=== PATIENT | female | born 1965 | race Caucasian/White ===

== ENCOUNTER → 2016-10-10 | Outpatient (REF) | payer OTHER, SELFPAY ==
[2016-10-10 18:33] LABS: ALBUMIN 3.3 GM/DL (3.2-5.2); ALBUMIN/GLOBULIN RATIO 1.14 (1.00-1.93); ALKALINE PHOSPHATASE 110 U/L (45-117); ALT/SGPT 29 U/L (12-78); ANION GAP 7 MEQ/L (8-16); AST/SGOT 21 U/L (15-37); BILIRUBIN,TOTAL 0.4 MG/DL (0.2-1.0); BLOOD UREA NITROGEN 14 MG/DL (7-18); CARBON DIOXIDE LEVEL 30 MEQ/L (21-32); CHLORIDE LEVEL 108 MEQ/L (98-107); CHOLESTEROL LEVEL 141 MG/DL (<200); GLOMERULAR FILTRATION RATE > 60.0 (>51); GLUCOSE, FASTING 79 MG/DL (70-105); POTASSIUM SERUM 4.3 MEQ/L (3.5-5.1); SODIUM LEVEL 145 MEQ/L (136-145); TOTAL PROTEIN 6.2 GM/DL (6.4-8.2); TRIGLYCERIDES LEVEL 44 MG/DL (<150)
[2016-10-10 18:59] LABS: BASO % 0.8 % (0.0-1.0); EOS # 0.1 K/mm3 (0.0-0.50); EOS % 2.2 % (0.0-3.0); LARGE UNSTAINED CELL # 0.1 K/mm3 (0.0-0.4); LARGE UNSTAINED CELL % 1.9 % (0.0-4.0); LYMPH # 1.4 K/mm3 (1.5-4.5); LYMPH % 44.5 % (24.0-44.0); MEAN CORPUSCULAR HEMOGLOBIN 27.6 pg (27.0-33.0); MEAN CORPUSCULAR HGB CONC 31.7 g/dl (32.0-36.5); MEAN CORPUSCULAR VOLUME 87.1 fl (80.0-96.0); MONO # 0.2 K/mm3 (0.0-0.8); MONO % 5.7 % (0.0-5.0); NEUTROPHILS # 1.5 K/mm3 (1.8-7.7); PLATELET COUNT, AUTOMATED 140 k/mm3 (150-450); RED CELL DISTRIBUTION WIDTH 13.5 % (11.5-14.5); WHITE BLOOD COUNT 3.2 K/mm3 (4.0-10.0)
== END | disposition home or self-care (01) ==
LOC: M LAB REF 16:14
PROVIDERS: ATTEND Family Medicine
DX: Z00.00 Encounter for general adult medical examination without abnormal findings (principal); E06.9 Thyroiditis, unspecified; N93.8 Other specified abnormal uterine and vaginal bleeding; Z98.84 Bariatric surgery status; D50.9 Iron deficiency anemia, unspecified
CPT/HCPCS: 80053; 80061; 84443; 85025; G0123

== ENCOUNTER → 2017-03-10 | Outpatient (REF) | payer OTHER | LOC: M LAB REF 11:41 | PROVIDERS: ATTEND Physician Assistant | DX: R30.0 Dysuria (principal) ==

== ENCOUNTER → 2017-08-16 | Outpatient (REF) | payer OTHER | LOC: M LAB REF 19:06 | PROVIDERS: ATTEND Physician Assistant | DX: R30.0 Dysuria (principal) ==

== ENCOUNTER → 2017-12-04 | Outpatient (REF) | payer OTHER ==
[2017-12-04 17:27] LABS: ALBUMIN 3.6 GM/DL (3.2-5.2); ALBUMIN/GLOBULIN RATIO 1.16 (1.00-1.93); ALKALINE PHOSPHATASE 99 U/L (45-117); ALT/SGPT 27 U/L (12-78); ANION GAP 7 MEQ/L (8-16); AST/SGOT 26 U/L (7-37); BILIRUBIN,TOTAL 0.5 MG/DL (0.2-1.0); BLOOD UREA NITROGEN 13 MG/DL (7-18); CALCIUM LEVEL 8.2 MG/DL (8.5-10.1); CARBON DIOXIDE LEVEL 28 MEQ/L (21-32); CHLORIDE LEVEL 109 MEQ/L (98-107); CHOLESTEROL LEVEL 174 MG/DL (<200); CHOLESTEROL RISK RATIO 1.775 (<5); CREATININE FOR GFR 0.67 MG/DL (0.55-1.30); GLOMERULAR FILTRATION RATE > 60.0 (>51); GLUCOSE, FASTING 95 MG/DL (70-100); HDL CHOLESTEROL 98 MG/DL (>40); LDL CHOLESTEROL 65.6 MG/DL (<100); NON-HDL-C 76 MG/DL; POTASSIUM SERUM 3.9 MEQ/L (3.5-5.1); SODIUM LEVEL 144 MEQ/L (136-145); TOTAL PROTEIN 6.7 GM/DL (6.4-8.2); TRIGLYCERIDES LEVEL 52 MG/DL (<150)
[2017-12-04 17:37] LABS: TOTAL 25(OH) VITAMIN D 43.6 NG/ML (30.0-100.0)
[2017-12-04 17:48] LABS: BASO % 0.7 % (0.0-1.0); EOS # 0.1 10^3/uL (0.0-0.50); EOS % 1.1 % (0.0-3.0); HEMOGLOBIN 12.4 g/dl (12.0-16.0); IMMATURE GRANULOCYTE % 0.2 % (0-3.0); LYMPH # 1.6 10^3/uL (1.5-4.5); LYMPH % 35.5 % (24.0-44.0); MEAN CORPUSCULAR HEMOGLOBIN 28.4 pg (27.0-33.0); MEAN CORPUSCULAR HGB CONC 31.8 g/dl (32.0-36.5); MEAN CORPUSCULAR VOLUME 89.4 fl (80.0-96.0); MONO # 0.4 10^3/uL (0.0-0.8); MONO % 8.5 % (0.0-5.0); NEUTROPHILS # 2.4 10^3/uL (1.8-7.7); PLATELET COUNT, AUTOMATED 189 10^3/uL (150-450); RED BLOOD COUNT 4.36 10^6/uL (4.00-5.40); RED CELL DISTRIBUTION WIDTH 13.2 % (11.5-14.5); WHITE BLOOD COUNT 4.5 10^3/uL (4.0-10.0)
[2017-12-04 18:17] LABS: HIV 1&2 SCREEN CENTAUR NEGATIVE (NEGATIVE)
== END ==
LOC: M LAB REF 16:29
DX: N93.8 Other specified abnormal uterine and vaginal bleeding (principal); Z98.84 Bariatric surgery status; D50.9 Iron deficiency anemia, unspecified; Z00.00 Encounter for general adult medical examination without abnormal findings

== ENCOUNTER → 2018-02-01 | Outpatient (CLI) | payer OTHER | LOC: M RAD 17:43 | DX: N92.6 Irregular menstruation, unspecified (principal) | CPT/HCPCS: 76856 ==

== ENCOUNTER → 2018-02-06 | Outpatient (REF) | payer OTHER | LOC: M LAB REF 17:22 | DX: N93.9 Abnormal uterine and vaginal bleeding, unspecified (principal) | CPT/HCPCS: 88304 ==

== ENCOUNTER 2018-02-16 14:05 | Day surgery (SDC) | payer OTHER ==
[2018-02-16 14:27] LABS: HEMATOCRIT 36.8 % (36.0-47.0); HEMOGLOBIN 12.1 g/dl (12.0-15.5); MEAN CORPUSCULAR HEMOGLOBIN 28.9 pg (27.0-33.0); MEAN CORPUSCULAR HGB CONC 32.9 g/dl (32.0-36.5); MEAN CORPUSCULAR VOLUME 87.8 fl (80.0-96.0); PLATELET COUNT, AUTOMATED 168 10^3/uL (150-450); RED BLOOD COUNT 4.19 10^6/uL (4.00-5.40); RED CELL DISTRIBUTION WIDTH 12.6 % (11.5-14.5); WHITE BLOOD COUNT 3.9 10^3/uL (4.0-10.0)
[2018-02-16] MEDS: LR 1,000 ML IV (14:43)
[2018-02-16] MEDS ORDERED: MIDAZOLAM INJ 2 MG/2 ML VIAL (J2250) As Ordered (19:09)
[2018-02-16] MEDS ORDERED: METOCLOPRAMIDE INJ 10MG/2ML VIAL (J2765) As Ordered (19:09)
[2018-02-16] MEDS ORDERED: dexameTHASONE 4 MG/ML 1ML VIAL (J1100) As Ordered (19:09)
[2018-02-16] MEDS ORDERED: KETOROLAC 60 MG/2 ML VIAL (J1885) As Ordered (19:09)
[2018-02-16] MEDS ORDERED: ONDANSETRON 4MG/2ML VIAL (J2405) As Ordered (19:09)
[2018-02-16] MEDS ORDERED: fentaNYL 100 MCG/2 ML INJECTION (J3010) As Ordered (19:09)
[2018-02-16] MEDS ORDERED: PROPOFOL 200 MG/20 ML VIAL As Ordered (19:09)
[2018-02-16] MEDS ORDERED: LIDOCAINE 2% INJ 100 MG/5 ML SDV (FOR ANES.) As Ordered (19:09)
[2018-02-16] MEDS ORDERED: SILVER NITRATE APPLICATOR As Ordered (19:50)
[2018-02-16] MEDS ORDERED: MEPERIDINE INJ 25 MG/ML VIAL (J2175) IV (20:15)
[2018-02-16] MEDS ORDERED: fentaNYL 100 MCG/2 ML INJECTION (J3010) IV (20:15)
[2018-02-16] MEDS ORDERED: METOCLOPRAMIDE INJ 10MG/2ML VIAL (J2765) IV (20:15)
[2018-02-16] MEDS ORDERED: ONDANSETRON 4MG/2ML VIAL (J2405) IV (20:15)
[2018-02-16] MEDS ORDERED: LR 1,000 ML IV ×2 (20:15)
[2018-02-16] MEDS: PERCOCET 5MG/325MG TAB PO (20:17)
== END 2018-02-16 21:56 | disposition home or self-care (01) ==
LOC: M SDC 21:56
DX: N93.9 Abnormal uterine and vaginal bleeding, unspecified (principal); Z98.84 Bariatric surgery status
CPT/HCPCS: 58563

== ENCOUNTER 2019-06-22 18:43 | Emergency (ER) | payer OTHER, SELFPAY ==
[~2019-06-22] VITALS: Ht 167.6 cm; Wt 84.1 kg
[~2019-06-22 18:43] MED LIST: ZYRT10CA PO
[2019-06-22] MEDS ORDERED: ONDANSETRON 4MG/2ML VIAL (J2405) IV ONE (19:45)
[2019-06-22] MEDS ORDERED: NS 1,000 ML IV ONE (19:45)
[2019-06-22] MEDS ORDERED: KETOROLAC 30 MG/ML VIAL (J1885) IV ONE (19:45)
[2019-06-22 19:51] LABS: BASO % 0.7 % (0.0-1.0); EOS # 0.1 10^3/uL (0.0-0.5); EOS % 1.6 % (0.0-3.0); HEMATOCRIT 37.2 % (36.0-47.0); HEMOGLOBIN 12.5 g/dl (12.0-15.5); LYMPH # 1.9 10^3/uL (1.5-5.0); LYMPH % 42.5 % (24.0-44.0); MEAN CORPUSCULAR HEMOGLOBIN 29.5 pg (27.0-33.0); MEAN CORPUSCULAR HGB CONC 33.6 g/dl (32.0-36.5); MEAN CORPUSCULAR VOLUME 87.7 fl (80.0-96.0); MONO # 0.5 10^3/uL (0.0-0.8); MONO % 10.5 % (0.0-5.0); NEUTROPHILS % 44.7 % (36.0-66.0); PLATELET COUNT, AUTOMATED 166 10^3/uL (150-450); RED BLOOD COUNT 4.24 10^6/uL (4.00-5.40); WHITE BLOOD COUNT 4.4 10^3/uL (4.0-10.0)
[2019-06-22] MEDS: GASTROGRAFIN SOLUTION 30ML PO SCH ×2 (20:06→20:48)
[2019-06-22 20:20] LABS: ALBUMIN 3.6 GM/DL (3.2-5.2); ALT/SGPT 27 U/L (12-78); BILIRUBIN,DIRECT 0.1 MG/DL (0.0-0.2); BILIRUBIN,TOTAL 0.7 MG/DL (0.2-1.0); BLOOD UREA NITROGEN 13 MG/DL (7-18); CALCIUM LEVEL 8.9 MG/DL (8.5-10.1); CARBON DIOXIDE LEVEL 29 MEQ/L (21-32); CHLORIDE LEVEL 107 MEQ/L (98-107); CREATININE FOR GFR 0.76 MG/DL (0.55-1.30); GLOMERULAR FILTRATION RATE > 60.0 (>51); GLUCOSE, FASTING 88 MG/DL (70-100); LIPASE 106 U/L (73-393); POTASSIUM SERUM 3.5 MEQ/L (3.5-5.1); SODIUM LEVEL 141 MEQ/L (136-145); TOTAL PROTEIN 6.5 GM/DL (6.4-8.2)
[2019-06-22] MEDS ORDERED: ISOVUE-370 76% 100ML VIAL (Q9967) As Ordered ONE (21:18)
--- NOTE | 2019-06-22 22:19 | REPVR ---
PROCEDURE INFORMATION: Exam: CT Abdomen And Pelvis With Contrast Exam date and time: 06/22/2019 9:28 PM Clinical history: 54 years old, female; Abdominal pain; Periumbilical; Additional info: Periumbilic pain TECHNIQUE: Imaging protocol: Computed tomography of the abdomen and pelvis with intravenous contrast. Radiation optimization: All CT scans at this facility use at least one of these dose optimization techniques: automated exposure control; mA and/or kV adjustment per patient size (includes targeted exams where dose is matched to clinical indication); or iterative reconstruction. Contrast material: ISOVUE 370; Contrast volume: 100 ml; Contrast route: IV; COMPARISON: US PELVIC NON-OB COMPLETE 02/01/2018 5:53 PM FINDINGS: Liver: Normal. No mass. Gallbladder and bile ducts: There has been prior cholecystectomy. Pancreas: Normal. No ductal dilation. Spleen: Normal. No splenomegaly. Adrenals: Normal. No mass. Kidneys and ureters: Normal. No hydronephrosis. Stomach and bowel: Changes from prior bariatric surgery are noted. No bowel obstruction or inflammatory process. Appendix: No evidence of appendicitis. Intraperitoneal space: Unremarkable. No free air. No significant fluid collection. Vasculature: Unremarkable. No abdominal aortic aneurysm. Lymph nodes: Unremarkable. No enlarged lymph nodes. Bladder: Unremarkable as visualized. Reproductive: Unremarkable as visualized. Bones/joints: There are degenerative changes in the spine and pelvis. Soft tissues: There is a small fat containing umbilical hernia. No hernias. IMPRESSION: 1. Small fat containing umbilical hernia. 2. Prior bariatric surgery without complication. No obstruction. Electronically signed by: Jeremias Godoy On 06/22/2019 22:18:57 PM
[2019-06-22] MEDS ORDERED: OMEP40CA97 PO ×2 (22:51→23:23)
[2019-06-22] MEDS ORDERED: SUCR1SS PO ×2 (22:51→23:23)
[2019-06-22] MEDS ORDERED: GI COCKTAIL 50ML BTL(HYOSCYAMINE/MAALOX/LIDOCAINE VISCOUS)(1:3:1) PO ONE (23:00)
[2019-06-22] MEDS ORDERED: FAMOTIDINE 20 MG TAB PO ONE (23:00)
[2019-06-22] MEDS ORDERED: PANTOPRAZOLE 40MG TAB (PROTONIX) PO ONE (23:00)
[2019-06-22 23:22] VITALS: BP 160/85
--- NOTE | 2019-06-23 09:01 | REP ---
REASON: Abdominal pain. COMPARISON: 12/27/2002 FINDINGS: Supine and upright views of the abdomen show the intestinal gas pattern to be nonspecific. Gas and stool is seen throughout the colon within the rectosigmoid region. The organ silhouettes insofar as delineated appear unremarkable. No abdominal calcific densities are seen within the abdomen or pelvis. The accompanying single frontal view of the chest shows no free subdiaphragmatic air, cardiomegaly, infiltrates or effusions. Surgical clips are seen in both upper quadrants and in the left mid abdomen. IMPRESSION: Nonspecific intestinal gas pattern. Electronically Signed by Cooper Cohen DO 06/23/2019 09:11 A
== END 2019-06-22 23:24 | disposition home or self-care (01) ==
LOC: M ED 18:43
DX: K42.9 Umbilical hernia without obstruction or gangrene (principal); Z98.84 Bariatric surgery status; Z87.442 Personal history of urinary calculi
CPT/HCPCS: 74021; 74177; 80048; 80076; 81001; 83690; 85025; 87086; 96361; 96374; 96375; 99284; J1885; J2405; Q9963; Q9967

== ENCOUNTER → 2019-10-21 | Outpatient (REF) | payer OTHER ==
[~2019-10-21] MED LIST changes: +OMEP40CA97 PO; +SUCR1SS PO
[2019-10-21 13:18] LABS: APPEARANCE, URINE HAZY (CLEAR); BACTERIA, URINE AUTO 1+ (NEGATIVE); BILIRUBIN, URINE AUTO NEGATIVE (NEGATIVE); BLOOD, URINE BLOOD NEGATIVE (NEGATIVE); COLOR, URINE YELLOW (YELLOW); GLUCOSE, URINE (UA) AUTO NEGATIVE (NEGATIVE); KETONE, URINE AUTO NEGATIVE (NEGATIVE); LEUKOCYTE ESTERASE, URINE AUTO 2+ (NEGATIVE); MUCUS, URINE SMALL (NEGATIVE); NITRITE, URINE AUTO NEGATIVE (NEGATIVE); PROTEIN, URINE AUTO NEGATIVE (NEGATIVE); RBC, URINE AUTO 2 /HPF (0-3); SPECIFIC GRAVITY URINE AUTO 1.017 (1.002-1.035); SQUAMOUS EPITHELIAL CELL UR AU 1 /HPF (0-6); UROBILINOGEN, URINE AUTO 0.2 mg/dL (0.0-2.0); WBC, URINE AUTO 5 /HPF (0-3)
== END ==
LOC: M LAB REF 10:59
PROVIDERS: ATTEND Physician Assistant Medical
DX: N39.0 Urinary tract infection, site not specified (principal)

== ENCOUNTER → 2019-10-23 | Outpatient (REF) | payer OTHER | LOC: M LAB REF 19:29 | PROVIDERS: ATTEND Family Medicine | DX: Z12.4 Encounter for screening for malignant neoplasm of cervix (principal) ==

== ENCOUNTER 2019-11-06 20:33 | Emergency (ER) | payer OTHER ==
[~2019-11-06] VITALS: Ht 170.2 cm; Wt 85.9 kg
[2019-11-06 20:43] VITALS: BP 136/105
[2019-11-06] MEDS ORDERED: NITR100C2 PO (20:48)
[2019-11-06] MEDS ORDERED: PHEN-594 PO (20:48)
[2019-11-06] MEDS ORDERED: diphenhydrAMINE INJ 50MG/ML VIAL (J1200) IV STA (20:56)
[2019-11-06] MEDS ORDERED: dexameTHASONE 20 MG/5 ML VIAL (J1100) IV ONE (21:00)
[2019-11-06] MEDS ORDERED: ONDANSETRON 4MG/2ML VIAL (J2405) IV ONE (21:45)
[2019-11-06] MEDS ORDERED: CETIRIZINE (ZyrTEC) 10 MG TAB PO ONE (23:00)
[2019-11-07] MEDS ORDERED: CIPR-249 PO (01:31)
== END 2019-11-07 01:46 | disposition home or self-care (01) ==
LOC: M ED 20:33
DX: R21 Rash and other nonspecific skin eruption (principal); L29.9 Pruritus, unspecified; T37.8X5A Adverse effect of other specified systemic anti-infectives and antiparasitics, initial encounter; T39.8X5A Adverse effect of other nonopioid analgesics and antipyretics, not elsewhere classified, initial encounter; K21.9 Gastro-esophageal reflux disease without esophagitis; J30.2 Other seasonal allergic rhinitis; Z98.84 Bariatric surgery status; Z88.8 Allergy status to other drugs, medicaments and biological substances; Z88.1 Allergy status to other antibiotic agents; Z79.899 Other long term (current) drug therapy
CPT/HCPCS: 96374; 96375; 99284; J1100; J1200; J2405

== ENCOUNTER → 2020-02-24 | Outpatient (REF) | payer OTHER ==
[~2020-02-24] MED LIST changes: +ASPI-527 PO; +ATEN100T PO; +CIPR-249 PO; +DIGO0.253 PO; +ECOT325T7 PO; +NITR100C2 PO; +PANT40TA29 PO; +PHEN1TAB74 PO; +SUCR1TA PO
== END ==
LOC: M LAB REF 17:56
PROVIDERS: ATTEND Family Medicine
DX: Z12.4 Encounter for screening for malignant neoplasm of cervix (principal)

== ENCOUNTER 2020-08-06 15:10 | Emergency (ER) | payer OTHER ==
[~2020-08-06] VITALS: Ht 167.6 cm; Wt 109.6 kg
[~2020-08-06 15:10] MED LIST changes: -ASPI-527 PO; -ATEN100T PO; -DIGO0.253 PO; -ECOT325T7 PO; -PANT40TA29 PO; +PHEN-594 PO; -PHEN1TAB74 PO; -SUCR1TA PO
--- NOTE | 2020-08-06 15:38 | REP ---
INDICATION: CHEST PAIN COMPARISON: None. TECHNIQUE: Portable AP view of the chest FINDINGS: The mediastinum and cardiac silhouette are stable and within normal limits for portable technique. The lung dominguez are clear without acute consolidation, effusion, or pneumothorax. Skeletal structures are intact. IMPRESSION: No acute cardiopulmonary process appreciated. <Electronically signed by Zeferino Arceo > 08/06/20 0410
[2020-08-06] MEDS ORDERED: DEXTROSE 50% 50 ML SYRINGE As Ordered ONE (15:49)
[2020-08-06 15:50] LABS: BASO # 0.1 10^3/uL (0.0-0.2); BASO % 1.1 % (0.0-1.0); EOS # 0.2 10^3/uL (0.0-0.5); EOS % 2.9 % (0.0-3.0); HEMATOCRIT 44.1 % (36.0-47.0); HEMOGLOBIN 14.3 g/dl (12.0-15.5); LYMPH # 2.1 10^3/uL (1.5-5.0); LYMPH % 34.3 % (24.0-44.0); MEAN CORPUSCULAR HEMOGLOBIN 28.8 pg (27.0-33.0); MEAN CORPUSCULAR HGB CONC 32.4 g/dl (32.0-36.5); MEAN CORPUSCULAR VOLUME 88.7 fl (80.0-96.0); MONO # 0.5 10^3/uL (0.0-0.8); MONO % 7.6 % (0.0-5.0); NEUTROPHILS # 3.3 10^3/uL (1.5-8.5); NEUTROPHILS % 53.9 % (36.0-66.0); PLATELET COUNT, AUTOMATED 215 10^3/uL (150-450); RED BLOOD COUNT 4.97 10^6/uL (4.00-5.40); WHITE BLOOD COUNT 6.2 10^3/uL (4.0-10.0)
[2020-08-06] MEDS: METOPROLOL 5 MG/5 ML VIAL IV SCH ×3 (15:50→16:12)
[2020-08-06] MEDS ORDERED: DEXTROSE 50% 50 ML SYRINGE IV STA (15:52)
--- NOTE | 2020-08-06 16:21 | ECGEPIP ---
[facility] - ED Test Date: 2020-08-06 Pat Name: DENEEN RAMOS Department: Room: - Gender: Female Rcp: HANNAH : 1965 Requested By: Alysha Breen Order Number: [id number] Reading MD: Alysha Breen Measurements Intervals [place] Rate: 154 P: ME: 0 QRS: 66 QRSD: 92 T: -31 QT: 278 QTc: 445 Interpretive Statements ATRIAL FIBRILLATION WITH RAPID VENTRICULAR RESPONSE NONSPECIFIC ST & T-WAVE ABNORMALITY No prior Electronically Signed on 08-06-2020 16:20:51 EST by Alysha Breen
[2020-08-06 16:41] LABS: ALBUMIN 3.7 GM/DL (3.2-5.2); ALT/SGPT 28 U/L (12-78); BILIRUBIN,DIRECT < 0.1 MG/DL (0.0-0.2); BILIRUBIN,TOTAL 0.3 MG/DL (0.2-1.0); MAGNESIUM LEVEL 1.9 MG/DL (1.8-2.4); TOTAL PROTEIN 8.2 GM/DL (6.4-8.2)
[2020-08-06] MEDS ORDERED: DIGOXIN INJ 0.5 MG/2 ML AMP (J1160) IV ONE (16:45)
[2020-08-06] MEDS ORDERED: METOPROLOL TART 50 MG TAB PO ONE ×2 (16:45→19:00)
[2020-08-06] MEDS ORDERED: DIGOXIN INJ 0.5 MG/2 ML AMP (J1160) IV STA ×2 (18:47→21:10)
[2020-08-06] MEDS ORDERED: atenoloL 50 MG TAB PO ONE (21:15)
[2020-08-06 21:53] VITALS: BP 151/121
[2020-08-06 21:57] LABS: APPEARANCE, URINE CLEAR (CLEAR); BACTERIA, URINE AUTO NEGATIVE (NEGATIVE); BILIRUBIN, URINE AUTO NEGATIVE (NEGATIVE); BLOOD, URINE BLOOD NEGATIVE (NEGATIVE); COLOR, URINE YELLOW (YELLOW); GLUCOSE, URINE (UA) AUTO NEGATIVE (NEGATIVE); KETONE, URINE AUTO TRACE mg/dL (NEGATIVE); LEUKOCYTE ESTERASE, URINE AUTO 1+ (NEGATIVE); NITRITE, URINE AUTO NEGATIVE (NEGATIVE); PROTEIN, URINE AUTO NEGATIVE (NEGATIVE); RBC, URINE AUTO 1 /HPF (0-3); SPECIFIC GRAVITY URINE AUTO 1.013 (1.002-1.035); SQUAMOUS EPITHELIAL CELL UR AU 1 /HPF (0-6); UROBILINOGEN, URINE AUTO 0.2 mg/dL (0.0-2.0); WBC, URINE AUTO 0 /HPF (0-3)
[2020-08-06 22:19] LABS: AMPHETAMINES LEVEL URINE NEGATIVE (NEGATIVE); BARBITURATES URINE NEGATIVE (NEGATIVE); BENZODIAZEPINES URINE NEGATIVE (NEGATIVE); CANNABINOIDS URINE POSITIVE (NEGATIVE); COCAINE METABOLITE URINE NEGATIVE (NEGATIVE); METHADONE URINE NEGATIVE (NEGATIVE); OPIATES URINE NEGATIVE (NEGATIVE); PHENCYCLIDINE URINE NEGATIVE (NEGATIVE)
[2020-08-06] MEDS ORDERED: ATEN100T PO (22:43)
[2020-08-06] MEDS ORDERED: ASPI-527 PO (22:43)
[2020-08-06] MEDS ORDERED: DIGO0.253 PO (22:43)
[2020-08-07 00:30] VITALS: BP 156/71
--- NOTE | 2020-08-07 06:38 | ECGEPIP ---
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
== END 2020-08-07 00:39 | disposition home or self-care (01) ==
LOC: M ED 15:10
DX: I48.91 Unspecified atrial fibrillation (principal); R94.31 Abnormal electrocardiogram [ECG] [EKG]; K21.9 Gastro-esophageal reflux disease without esophagitis; Z88.8 Allergy status to other drugs, medicaments and biological substances; Z79.899 Other long term (current) drug therapy; Z98.0 Intestinal bypass and anastomosis status
CPT/HCPCS: 36415; 71045; 80047; 80076; 80307; 81001; 83735; 84443; 85025; 93005; 93041; 94760; 96374; 96375; 96376; 99285; J1160

== ENCOUNTER 2020-08-14 20:46 | Inpatient (IN) | payer OTHER ==
[~2020-08-14] VITALS: Ht 167.6 cm; Wt 106.7 kg
[~2020-08-14 20:46] MED LIST changes: +ASPI-527 PO; +ATEN100T PO; +DIGO0.253 PO; -PHEN-594 PO; +PHEN1TAB74 PO
[2020-08-14] MEDS ORDERED: NS 1,000 ML IV ONE (21:15)
[2020-08-14] MEDS ORDERED: ONDANSETRON 4MG/2ML VIAL IV ONE (21:15)
[2020-08-14] MEDS ORDERED: PANTOPRAZOLE 40MG VIAL (C9113 PER 1) IV ONE (21:15)
[2020-08-14 21:43] LABS: BASO # 0.1 10^3/uL (0.0-0.2); BASO % 0.6 % (0.0-1.0); EOS # 0.1 10^3/uL (0.0-0.5); EOS % 1.1 % (0.0-3.0); HEMATOCRIT 35.6 % (36.0-47.0); HEMOGLOBIN 11.8 g/dl (12.0-15.5); LYMPH # 4.5 10^3/uL (1.5-5.0); LYMPH % 36.8 % (24.0-44.0); MEAN CORPUSCULAR HEMOGLOBIN 28.8 pg (27.0-33.0); MEAN CORPUSCULAR HGB CONC 33.1 g/dl (32.0-36.5); MEAN CORPUSCULAR VOLUME 86.8 fl (80.0-96.0); MONO # 1.1 10^3/uL (0.0-0.8); MONO % 9.2 % (0.0-5.0); NEUTROPHILS # 6.3 10^3/uL (1.5-8.5); NEUTROPHILS % 51.9 % (36.0-66.0); PLATELET COUNT, AUTOMATED 296 10^3/uL (150-450); WHITE BLOOD COUNT 12.2 10^3/uL (4.0-10.0)
[2020-08-14] MEDS ORDERED: PANTOPRAZOLE SODIUM 40 MG in D5W 50 ML IV SCH (21:45)
[2020-08-14 21:59] LABS: INR 1.09; PROTHROMBIN TIME 14.3 SECONDS (12.5-14.3)
[2020-08-14 22:05] LABS: ALT/SGPT 21 U/L (12-78); BLOOD UREA NITROGEN 39 MG/DL (7-18); CALCIUM LEVEL 8.6 MG/DL (8.5-10.1); CARBON DIOXIDE LEVEL 21 MEQ/L (21-32); CHLORIDE LEVEL 111 MEQ/L (98-107); CREATININE FOR GFR 0.77 MG/DL (0.55-1.30); GLOMERULAR FILTRATION RATE > 60.0 (>51); GLUCOSE, FASTING 157 MG/DL (70-100); POTASSIUM SERUM 4.4 MEQ/L (3.5-5.1); SODIUM LEVEL 144 MEQ/L (136-145)
[2020-08-14 22:06] LABS: ALBUMIN 3.1 GM/DL (3.2-5.2); AMYLASE 43 U/L (25-115); BILIRUBIN,DIRECT 0.1 MG/DL (0.0-0.2); BILIRUBIN,TOTAL 0.4 MG/DL (0.2-1.0); CPK CREATINE PHOSPHOKINASE 85 U/L (26-192); LIPASE 152 U/L (73-393); MB/CK RELATIVE INDEX 1.18 (< OR =4); TOTAL PROTEIN 6.1 GM/DL (6.4-8.2); TROPONIN I < 0.02 NG/ML (< 0.10)
[2020-08-14] MEDS ORDERED: propofoL 200 MG/20 ML VIAL As Ordered ONE (23:23)
[2020-08-14] MEDS ORDERED: ROCURONIUM BROMIDE 50 MG/5 ML VIAL As Ordered ONE (23:23)
[2020-08-14] MEDS ORDERED: LIDOCAINE 2% 100MG/5ML SDV (FOR ANES.) As Ordered ONE (23:23)
[2020-08-14] MEDS ORDERED: MIDAZOLAM INJ 2MG/2ML VIAL (J2250 PER 1MG) As Ordered ONE (23:23)
[2020-08-14] MEDS ORDERED: ONDANSETRON 4MG/2ML VIAL As Ordered ONE (23:24)
[2020-08-14] MEDS ORDERED: fentaNYL 100 MCG/2 ML INJECTION (J3010) As Ordered ONE (23:24)
[2020-08-14 23:39] LABS: HEMATOCRIT 23.2 % (36.0-47.0); MEAN CORPUSCULAR HEMOGLOBIN 28.4 pg (27.0-33.0); MEAN CORPUSCULAR HGB CONC 30.6 g/dl (32.0-36.5); MEAN CORPUSCULAR VOLUME 92.8 fl (80.0-96.0); WHITE BLOOD COUNT 6.6 10^3/uL (4.0-10.0)
[2020-08-14 23:48] LABS: HEMOGLOBIN 7.1 g/dl (12.0-15.5)
[2020-08-14 23:49] LABS: PLATELET COUNT, AUTOMATED 125 10^3/uL (150-450)
[2020-08-15] VITALS (8 sets, daily range): BP systolic 105–119; BP diastolic 56–73
[2020-08-15] MEDS ORDERED: ECOT325T7 PO
[2020-08-15] MEDS ORDERED: DIGO0.253 PO
[2020-08-15] MEDS ORDERED: ATEN100T PO
[2020-08-15] MEDS ORDERED: SUCCINYLCHOLINE 100 MG/5 ML SYRINGE (J0330) As Ordered ONE (00:11)
[2020-08-15] MEDS ORDERED: ePHEDrine SULFATE 25 MG/5 ML(5MG/ML) SYRINGE As Ordered ONE (00:54)
[2020-08-15] MEDS ORDERED: PHENYLephrine HCL 500 MCG/5 ML (100MCG/ML) SYRINGE (J2370) As Ordered ONE (00:55)
--- NOTE | 2020-08-15 00:59 | HPEPDOC ---
[facility] Medical History & Physical Date of Admission Aug 15, 2020 Date of Service: Aug 15, 2020 History and Physical Chief complaint: Presented to the ER after experiencing bloody vomiting History of present illness: Patient is a 55-year-old female with past medical history of atrial fibrillation (on ASA 325), Hx of JAQUELIN (s/p CPAP), Gastric bypass, GERD who presented to the emergency room with complaints of vomiting blood. Patient reported that on she experience shortness of breath and came to the emergency room for further evaluation where she was diagnosed with atrial fibrillation. She was started on metoprolol and digoxin and started on an enterically coated ASA 325. Today. Patient noted she was expressing headaches in the afternoon then had associated nausea. The progressed to vomiting at around 7 or 8 PM patient has vomited 3-4 times while at home, feeling of her toilet bowl with blood. Upon arrival to emergency room, patient has vomited an additional 3-4 times, all with copious amounts of blood. During these events. Patient has experienced epigastric pain that has improved. Patient described it as dull, achy and alleviated with vomiting. Patient had dizziness earlier this evening that has now resolved. Patient denies any chest pain but does report shortness of breath with exertion that has improved. Denies any palpitations. Denies constipation or diarrhea. Denies any urinary discomfort. Her last bowel movement was this morning and reported to be normal. Patient reported her last meal was a few bites of mac & cheese at 5 PM. Patient reports a poor appetite and is experienced a 5 pound weight loss over 1- 2 weeks. Patient has reported that she has had an endoscopy any colonoscopy approximately 3 months ago. Patient was noted to have a polyp that was removed and had esophageal dilation. Patient was also advised to reduce her omeprazole from 40mg to 20mg. On a follow-up visit. she was advised to stop PPIs. Past Medical History: Atrial fibrillation (on ASA 325), Hx of JAQUELIN (s/p CPAP), Gastric bypass, GERD Past Surgical History: Gastric bypass 2016 Uterine ablation 2018 Allergies: See below Medications: See below Family History: - Family history reviewed and noncontributory Social History: - Denies the use of illicit drugs; remote history of smoking in her 20s for 6 months. 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 Review of Systems: 10 point review of systems complete, all negative otherwise stated in HPI Physical exam: - Vitals: BP [115/62], HR [65], RR [20], Sat [98%RA], Temp [96.7F] - General: Lying in bed, No acute distress, Speaking in full sentences, AAOx3 - HEENT: NC, AT, PERRLA - CVS: RRR, +S1S2 - Lungs: Fair air entry bilaterally, No appreciable wheezing / rales / rhonchi - Abdomen: Soft, Non-distended, very mild epigastric tenderness - Extremities: No lower extremity edema, No calf tenderness - Neuro: No focal motor or sensory deficit - Skin: No visible rashes Labs: See below Imaging: See below EKG: See below Assessment and Plan: Acute blood loss anemia/symptomatic anemia - likely 2/2 acute GI bleed - likely 2/2 upper GI bleed - Patient presented to the emergency room after experiencing multiple episodes of vomiting bright red blood - Currently she is hemodynamically stable and afebrile - Hemoglobin has trended down within 2 hours to 7.1 form 11.8 - Will transfuse 3 units PRBC - Will keep patient in PCU with telemetry monitoring - Will start Protonix drip and keep patient NPO - Will hold ASA 325 - Patient will be emergently taken for EGD with Dr. Norma bellamy - Dr. Green, Gastroenterology on consultation; appreciate their input Thrombocytopenia - likely 2/2 active GI bleed - Will continue to monitor and transfuse if <100 and active bleeding Atrial fibrillation - Currently patient appears to be in normal sinus rhythm - EKG reviewed and is normal sinus rhythm - Will check Digoxin level - Will c/w Digoxin - Will hold Atenolol for now - Will hold ASA 325 Hx of JAQUELIN - s/p CPAP - Patient has reported that she has not required his CPAP after she has had a gastric bypass and weight loss Gastric bypass GERD - Will start Protonix (see above) DVT prophylaxis - Will start TEDs/Sequentials Vital Signs Vital Signs Date Time Temp Pulse Resp B/P (MAP) Pulse Ox O2 Delivery O2 Flow Rate FiO2 08/14/20 23:46 66 98 08/14/20 23:34 114/86 (95) 118/74 (89) 08/14/20 22:12 Room Air 08/14/20 21:05 96.7 08/14/20 21:00 20 Laboratory Data Labs 24H Laboratory Tests 2 08/14/20 21:26: Immature Granulocyte % (Auto) 0.4, Neutrophils (%) (Auto) 51.9, Lymphocytes (%) (Auto) 36.8, Monocytes (%) (Auto) 9.2H, Eosinophils (%) (Auto) 1.1, Basophils (%) (Auto) 0.6, Neutrophils # (Auto) 6.3, Lymphocytes # (Auto) 4.5, Monocytes # (Auto) 1.1H, Eosinophils # (Auto) 0.1, Basophils # (Auto) 0.1, Nucleated Red Blood Cells % (auto) 0.0, Prothrombin Time 14.3H, Prothromb Time International Ratio 1.09, Activated Partial Thromboplast Time 23.0L, Anion Gap 12, Glomerular Filtration Rate > 60.0, Calcium Level 8.6, Total Bilirubin 0.4, Direct Bilirubin 0.1, Aspartate Amino Transf (AST/SGOT) 19, Alanine Aminotransferase (ALT/SGPT) 21, Alkaline Phosphatase 114, Total Creatine Kinase 85, Creatine Kinase MB 1.0, Creatine Kinase MB Relative Index 1.18, Troponin I < 0.02, Total Protein 6.1L, Albumin 3.1L, Albumin/Globulin Ratio 1.0L, Amylase Level 43, Lipase 152 08/14/20 21:27: Coronavirus (COVID-19)(PCR) NEGATIVE, Influenza Type A (RT-PCR) NEGATIVE, Influenza Type B (RT-PCR) NEGATIVE, Respiratory Syncytial Virus (PCR) NEGATIVE 08/14/20 23:09: Nucleated Red Blood Cells % (auto) 0.0 CBC/BMP Laboratory Tests 08/14/20 21:26 08/14/20 23:09 Home Medications Scheduled Aspirin (Ecotrin) 325 Mg Tablet.dr, 325 MG PO DAILY Atenolol (Atenolol) 100 Mg Tablet, 100 MG PO DAILY Digoxin (Digoxin) 250 Mcg Tablet, 250 MCG PO DAILY Allergies Coded Allergies: nitrofurantoin (Verified Allergy, Severe, sob, hives, itchy, 11/06/19) phenazopyridine (Verified Allergy, Severe, sob, itchy, hives, 11/06/19) dexamethasone (Verified Adverse Reaction, Intermediate, rigors with rapid IV administration, 11/09/19) received on 11/06/19 in ER with IV benadryl diphenhydramine (Verified Adverse Reaction, Intermediate, RIGORS WITH RAPID IV ADMINISTRATION, 11/09/19) received on 11/06/19 in ER with CRUZ Brewster MD Aug 15, 2020 00:58
[2020-08-15] MEDS ORDERED: ACETAMINOPHEN 1000MG 100ML IV BTL (OFIRMEV) (J0131 PER 10MG) As Ordered ONE (01:12)
[2020-08-15] MEDS ORDERED: METOCLOPRAMIDE INJ 10MG/2ML VIAL (J2765 PER 1) As Ordered ONE (01:13)
[2020-08-15 01:31] LABS: DIGOXIN LEVEL 0.4 NG/ML (0.5-2.0)
[2020-08-15] MEDS ORDERED: GLUCAGON INJ 1MG VIAL As Ordered ONE (01:39)
[2020-08-15] MEDS ORDERED: ONDANSETRON 4MG/2ML VIAL IV PRN (02:30)
[2020-08-15] MEDS ORDERED: METOCLOPRAMIDE INJ 10MG/2ML VIAL (J2765 PER 1) IV PRN (02:30)
[2020-08-15] MEDS ORDERED: fentaNYL 100 MCG/2 ML INJECTION (J3010) IV PRN (02:30)
[2020-08-15] MEDS ORDERED: LR 1,000 ML IV SCH (02:30)
[2020-08-15] MEDS ORDERED: PANTOPRAZOLE 40MG VIAL (C9113 PER 1) As Ordered ONE (02:32)
--- NOTE | 2020-08-15 02:34 | ROOR ---
Patient Name: Christa Thayer Procedure Date: 08/15/2020 12:36 AM Date of : 1965 Age: 55 Gender: Female Note Status: Finalized Procedure: Upper GI endoscopy Indications: Hematemesis Providers: Chetan GREEN MD Referring MD: Angela Sanders, Araseli Andrade DO, 2. Inpatient 2. Inpatient, Amy BULLOCK MD Requesting Provider: Medicines: Monitored Anesthesia Care Complications: No immediate complications. Procedure: Pre-Anesthesia Assessment: - The heart rate, respiratory rate, oxygen saturations, blood pressure, adequacy of pulmonary ventilation, and response to care were monitored throughout the procedure. The Endoscope was introduced through the mouth, and advanced to the jejunum. The Endoscope was introduced through the mouth, and advanced to the jejunum. The patient tolerated the procedure well. The upper GI endoscopy was technically difficult and complex due to post-surgical anatomy. Successful completion of the procedure was aided by withdrawing the scope and replacing with the enteroscope. Findings: Evidence of a Jackelyn-en-Y gastrojejunostomy was found. The gastrojejunal anastomosis was characterized by ulceration. One small (8 mm), bleeding cratered ulcer on the jejunal side of the anastomosis. (Only seen in retroflexed position in the jejunum). There was an adherent clot. The clot was removed revealing an actively oozing vessel. For hemostasis, three hemostatic clips were at least partially successful and four hemostatic clips were unsuccessfully placed. With the standard EGD scope, the location of this lesion is very inaccessible in forward and retroflexed view. The scope was changed to an enteroscope, which provided slightly better positioning ability. Clips were applied to the vessel and near the vessel. There was no bleeding at the end of the procedure. Impression: - Jackelyn-en-Y gastrojejunostomy with gastrojejunal anastomosis characterized by ulceration. - 8 mm ulcer on the jejunal side of the anastomosis, with adherent clot, and bleeding visible vessel. Clips were placed, hemostasis obtained. - No specimens collected. Recommendation: - For rebleeding, will need interventional radiology or surgery as the ulcer/bleeding vessel is inaccessible. see findings above - Observe patient's clinical course. Admit patient to ICU or PCU for next 24-36 hrs. - Use IV PPI and po sucralfate. She may have clears only for next 24 hrs. Procedure Code(s): --- Professional --- 64875, Esophagogastroduodenoscopy, flexible, transoral; with control of bleeding, any method Diagnosis Code(s): --- Professional --- K92.0, Hematemesis K25.4, Chronic or unspecified gastric ulcer with hemorrhage CPT copyright 2019 [employer]. All rights reserved. The codes documented in this report are preliminary and upon direct marketing analyst review may be revised to meet current compliance requirements. Chetan Green MD Chetan GREEN MD 08/15/2020 2:33:45 AM Electronically signed by Chetan GREEN MD Number of Addenda: 0 Note Initiated On: 08/15/2020 12:36 AM Estimated Blood Loss: Estimated blood loss: Minimal.
[2020-08-15] MEDS: PANTOPRAZOLE SODIUM 40 MG in D5W 50 ML IV SCH ×5 (02:50→20:08)
[2020-08-15 06:29] LABS: HEMATOCRIT 36.5 % (36.0-47.0); MEAN CORPUSCULAR HGB CONC 32.9 g/dl (32.0-36.5); MEAN CORPUSCULAR VOLUME 91.3 fl (80.0-96.0); PLATELET COUNT, AUTOMATED 147 10^3/uL (150-450); WHITE BLOOD COUNT 5.8 10^3/uL (4.0-10.0)
[2020-08-15] MEDS ORDERED: SUCRALFATE 1 GM TAB PO SCH (09:00)
[2020-08-15] MEDS: DIGOXIN 0.25 MG TAB PO SCH ×2 (09:00→09:12)
--- NOTE | 2020-08-15 09:21 | IPNPDOC ---
Text Note Date of Service The patient was seen on 08/15/20. NOTE Subjective: No further hematemesis after EGD. Had a large bowel movement which was judson and red blood. Physical exam: Vitals: As below. General: Lying in bed, No acute distress, Speaking in full sentences, AAOx3 HEENT: NC, AT, PERRLA CVS: RRR, +S1S2, No Rub/ murmur or gallop Lungs: Fair air entry bilaterally, No appreciable wheezing / rales / rhonchi Abdomen: Soft, Non-distended, very mild epigastric tenderness, bowel sounds normal Extremities: No lower extremity edema, No calf tenderness Neuro: No focal motor or sensory deficit Skin: No visible rashes Labs and radiology: noted. Assessment and Plan: Patient is a 55-year-old female with past medical history of atrial fibrillation (on ASA 325), Hx of JAQUELIN (s/p CPAP), Gastric bypass, GERD who presented to the emergency room on 08/14/20 with complaints of Hematemesis. Patient reported that on she experienced shortness of breath and came to the emergency room for further evaluation where she was diagnosed with atrial fibrillation. She was started on metoprolol and digoxin and started on an enterically coated ASA 325. On the day of admission patient noted having headaches in the afternoon with nausea. This progressed to vomiting at around 7 or 8 PM. Patient had vomited 3-4 times while at home, filling her toilet bowl with blood. Upon arrival to emergency room, patient again vomited an additional 3-4 times, all with copious amounts of blood. During these events patient has experienced epigastric pain that has improved. Patient had dizziness earlier that has now resolved. Patient has reported that she has had an endoscopy any colonoscopy approximately 3 months ago. Patient was noted to have a polyp that was removed and had esophageal dilation. Patient was also advised to reduce her omeprazole from 40mg to 20mg. On a follow-up visit. she was advised to stop PPIs. Patient was admitted for Upper GIB and acute blood loss anemia. Upper GIB/ Hemetamesis Urgent EGD showed bleeding anastomotic ulcer as below Jackelyn-en-Y gastrojejunostomy with gastrojejunal anastomosis characterized by ulceration. 8 mm ulcer on the jejunal side of the anastomosis, with adherent clot, and bleeding visible vessel. Clips were placed, hemostasis obtained. GI Recommendation: - For rebleeding, will need interventional radiology or surgery as the ulcer/bleeding vessel is inaccessible. Admit patient to ICU or PCU for next 24-36 hrs. IV PPI and po sucralfate. She may have clears only for next 24 hrs. Acute blood loss anemia/symptomatic anemia 2/2 upper GI bleed s/p 3 units of PRBC. HH stable after EGD Thrombocytopenia - likely 2/2 active GI bleed Will continue to monitor and transfuse if <100 and active bleeding Paroxysmal Atrial fibrillation Currently patient appears to be in normal sinus rhythm c/w Digoxin Atenolol on hold Will hold ASA 325 Hx of Morbid obesity and JAQUELIN resolved after gastric bypass and weight loss. s/p Gastric bypass GERD IV protonix DVT prophylaxis TEDs/Sequentials VS,Fishbone, I+O VS, Fishbone, I+O Laboratory Tests 08/14/20 21:26 08/14/20 23:09 08/15/20 06:10 Vital Signs Date Time Temp Pulse Resp B/P (MAP) Pulse Ox O2 Delivery O2 Flow Rate FiO2 08/15/20 06:15 97.5 63 12 118/65 (82) 100 Room Air 08/15/20 03:00 2 I&O- Last 24 Hours up to 6 AM 08/15/20 07:00 Intake Total 4330 ml Output Total 0 ml Balance 4330 ml DUNG GOLDMAN MD Aug 15, 2020 07:24
[2020-08-15] MEDS: SUCRALFATE SUSP 1GM/10ML UD PO SCH ×3 (11:45→20:08)
[2020-08-15 12:26] LABS: HEMATOCRIT 33.5 % (36.0-47.0); HEMOGLOBIN 10.8 g/dl (12.0-15.5); MEAN CORPUSCULAR HEMOGLOBIN 28.9 pg (27.0-33.0); MEAN CORPUSCULAR HGB CONC 32.2 g/dl (32.0-36.5); MEAN CORPUSCULAR VOLUME 89.6 fl (80.0-96.0); PLATELET COUNT, AUTOMATED 135 10^3/uL (150-450); RED BLOOD COUNT 3.74 10^6/uL (4.00-5.40); WHITE BLOOD COUNT 4.8 10^3/uL (4.0-10.0)
[2020-08-15] MEDS ORDERED: CHLORASEPTIC SPRAY MT PRN (16:30)
--- NOTE | 2020-08-15 16:40 | ECGEPIP ---
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
[2020-08-15 18:23] LABS: HEMATOCRIT 33.9 % (36.0-47.0); HEMOGLOBIN 10.8 g/dl (12.0-15.5)
[2020-08-16] VITALS: BP 122/58
[2020-08-16 00:32] LABS: HEMATOCRIT 33.3 % (36.0-47.0); HEMOGLOBIN 10.6 g/dl (12.0-15.5)
[2020-08-16] MEDS: PANTOPRAZOLE SODIUM 40 MG in D5W 50 ML IV SCH ×5 (01:21→21:35)
[2020-08-16 04:00] VITALS: BP 124/68
[2020-08-16 06:17] LABS: BASO % 0.9 % (0.0-1.0); EOS # 0.1 10^3/uL (0.0-0.5); EOS % 3.5 % (0.0-3.0); HEMATOCRIT 34.9 % (36.0-47.0); HEMOGLOBIN 11.4 g/dl (12.0-15.5); LYMPH # 1.6 10^3/uL (1.5-5.0); LYMPH % 46.2 % (24.0-44.0); MEAN CORPUSCULAR HEMOGLOBIN 29.5 pg (27.0-33.0); MEAN CORPUSCULAR HGB CONC 32.7 g/dl (32.0-36.5); MEAN CORPUSCULAR VOLUME 90.4 fl (80.0-96.0); MONO # 0.4 10^3/uL (0.0-0.8); MONO % 10.5 % (0.0-5.0); NEUTROPHILS # 1.3 10^3/uL (1.5-8.5); NEUTROPHILS % 38.6 % (36.0-66.0); PLATELET COUNT, AUTOMATED 128 10^3/uL (150-450); RED BLOOD COUNT 3.86 10^6/uL (4.00-5.40); WHITE BLOOD COUNT 3.4 10^3/uL (4.0-10.0)
[2020-08-16 06:31] LABS: BLOOD UREA NITROGEN 15 MG/DL (7-18); CALCIUM LEVEL 7.9 MG/DL (8.5-10.1); CARBON DIOXIDE LEVEL 26 MEQ/L (21-32); CHLORIDE LEVEL 115 MEQ/L (98-107); CREATININE FOR GFR 0.63 MG/DL (0.55-1.30); GLOMERULAR FILTRATION RATE > 60.0 (>51); GLUCOSE, FASTING 79 MG/DL (70-100); MAGNESIUM LEVEL 1.9 MG/DL (1.8-2.4); POTASSIUM SERUM 3.7 MEQ/L (3.5-5.1); SODIUM LEVEL 145 MEQ/L (136-145)
[2020-08-16] MEDS: SUCRALFATE SUSP 1GM/10ML UD PO SCH ×4 (06:45→21:35)
[2020-08-16 08:00] VITALS: BP 118/63
[2020-08-16] MEDS: DIGOXIN 0.25 MG TAB PO SCH (09:09)
[2020-08-16] MEDS ORDERED: SLF 3 ML SYR IV PRN (11:45)
[2020-08-16 12:00] VITALS: BP 115/55
[2020-08-16] MEDS: SLF 3 ML SYR IV SCH ×2 (12:09→21:35)
[2020-08-16 12:43] LABS: HEMATOCRIT 37.4 % (36.0-47.0); HEMOGLOBIN 12.1 g/dl (12.0-15.5)
--- NOTE | 2020-08-16 13:04 | IPNPDOC ---
Text Note Date of Service The patient was seen on 08/16/20. NOTE Subjective: No further hematemesis after EGD. Having melena. No complaints this am. Discussed with Dr Green will advance diet to Full liquids today. Physical exam: Vitals: As below. General: Lying in bed, No acute distress, Speaking in full sentences, AAOx3 HEENT: NC, AT, PERRLA CVS: RRR, +S1S2, No Rub/ murmur or gallop Lungs: Fair air entry bilaterally, No appreciable wheezing / rales / rhonchi Abdomen: Soft, Non-distended, very mild epigastric tenderness, bowel sounds normal Extremities: No lower extremity edema, No calf tenderness Neuro: No focal motor or sensory deficit Skin: No visible rashes Labs and radiology: noted. Assessment and Plan: Patient is a 55-year-old female with past medical history of atrial fibrillation (on ASA 325), Hx of JAQUELIN (s/p CPAP), Gastric bypass, GERD who presented to the emergency room on 08/14/20 with complaints of Hematemesis. Patient reported that on she experienced shortness of breath and came to the emergency room for further evaluation where she was diagnosed with atrial fibrillation. She was started on metoprolol and digoxin and started on an enterically coated ASA 325. On the day of admission patient noted having headaches in the afternoon with nausea. This progressed to vomiting at around 7 or 8 PM. Patient had vomited 3-4 times while at home, filling her toilet bowl with blood. Upon arrival to emergency room, patient again vomited an additional 3-4 times, all with copious amounts of blood. During these events patient has experienced epigastric pain that has improved. Patient had dizziness earlier that has now resolved. Patient has reported that she has had an endoscopy any colonoscopy approximately 3 months ago. Patient was noted to have a polyp that was removed and had esophageal dilation. Patient was also advised to reduce her omeprazole from 40mg to 20mg. On a follow-up visit. she was advised to stop PPIs. Patient was admitted for Upper GIB and acute blood loss anemia. Upper GIB/ Hematemesis Urgent EGD showed bleeding anastomotic ulcer as below Jackelyn-en-Y gastrojejunostomy with gastrojejunal anastomosis characterized by ulceration. 8 mm ulcer on the jejunal side of the anastomosis, with adherent clot, and bleeding visible vessel. Clips were placed, hemostasis obtained. GI Recommendation: - For rebleeding, will need interventional radiology or surgery as the ulcer/bleeding vessel is inaccessible. Admit patient to ICU or PCU for next 24-36 hrs. IV PPI and po sucralfate. Advance diet to full liquids. Acute blood loss anemia/symptomatic anemia 2/2 upper GI bleed s/p 3 units of PRBC. HH stable after EGD Thrombocytopenia - likely 2/2 active GI bleed Will continue to monitor and transfuse if <100 and active bleeding Paroxysmal Atrial fibrillation Currently patient appears to be in normal sinus rhythm c/w Digoxin Atenolol on hold Will hold ASA 325 Hx of Morbid obesity and JAQUELIN resolved after gastric bypass and weight loss. s/p Gastric bypass GERD IV protonix DVT prophylaxis TEDs/Sequentials VS,Fishbone, I+O VS, Fishbone, I+O Laboratory Tests 08/15/20 17:48 08/16/20 00:14 08/16/20 05:23 08/16/20 12:18 Vital Signs Date Time Temp Pulse Resp B/P (MAP) Pulse Ox O2 Delivery O2 Flow Rate FiO2 08/16/20 12:00 97.3 53 14 115/55 (75) 96 Room Air 08/15/20 03:00 2 I&O- Last 24 Hours up to 6 AM 08/16/20 06:00 Intake Total 1220 ml Output Total 1900 ml Balance -680 ml DUNG GOLDMAN MD Aug 16, 2020 13:04
[2020-08-16 16:00] VITALS: BP 130/68
[2020-08-16 18:03] LABS: HEMATOCRIT 35.1 % (36.0-47.0); HEMOGLOBIN 11.4 g/dl (12.0-15.5)
[2020-08-16 20:00] VITALS: BP 127/84
[2020-08-17] VITALS: BP 136/66
[2020-08-17 00:12] LABS: HEMATOCRIT 34.8 % (36.0-47.0); HEMOGLOBIN 11.2 g/dl (12.0-15.5)
[2020-08-17] MEDS: PANTOPRAZOLE SODIUM 40 MG in D5W 50 ML IV SCH ×2 (01:59→08:01)
[2020-08-17 04:00] VITALS: BP 139/82
[2020-08-17 05:03] LABS: BASO % 0.7 % (0.0-1.0); EOS # 0.2 10^3/uL (0.0-0.5); EOS % 3.7 % (0.0-3.0); HEMATOCRIT 35.2 % (36.0-47.0); HEMOGLOBIN 11.2 g/dl (12.0-15.5); LYMPH # 1.7 10^3/uL (1.5-5.0); LYMPH % 41.9 % (24.0-44.0); MEAN CORPUSCULAR HEMOGLOBIN 28.4 pg (27.0-33.0); MEAN CORPUSCULAR HGB CONC 31.8 g/dl (32.0-36.5); MEAN CORPUSCULAR VOLUME 89.1 fl (80.0-96.0); MONO # 0.4 10^3/uL (0.0-0.8); NEUTROPHILS # 1.8 10^3/uL (1.5-8.5); NEUTROPHILS % 43.5 % (36.0-66.0); PLATELET COUNT, AUTOMATED 144 10^3/uL (150-450); RED BLOOD COUNT 3.95 10^6/uL (4.00-5.40); WHITE BLOOD COUNT 4.1 10^3/uL (4.0-10.0)
[2020-08-17 05:31] LABS: BLOOD UREA NITROGEN 10 MG/DL (7-18); CALCIUM LEVEL 8.2 MG/DL (8.5-10.1); CARBON DIOXIDE LEVEL 28 MEQ/L (21-32); CHLORIDE LEVEL 111 MEQ/L (98-107); CREATININE FOR GFR 0.75 MG/DL (0.55-1.30); GLOMERULAR FILTRATION RATE > 60.0 (>51); GLUCOSE, FASTING 89 MG/DL (70-100); MAGNESIUM LEVEL 1.9 MG/DL (1.8-2.4); POTASSIUM SERUM 3.6 MEQ/L (3.5-5.1); SODIUM LEVEL 143 MEQ/L (136-145)
[2020-08-17] MEDS: SLF 3 ML SYR IV SCH (05:46)
[2020-08-17 08:00] VITALS: BP 121/71
[2020-08-17] MEDS: DIGOXIN 0.25 MG TAB PO SCH (08:01)
[2020-08-17] MEDS: SUCRALFATE SUSP 1GM/10ML UD PO SCH (08:01)
[2020-08-17] MEDS ORDERED: SUCR1TA PO (09:06)
[2020-08-17] MEDS ORDERED: PANT40TA29 PO (09:06)
[2020-08-17] MEDS ORDERED: ATEN100T PO (09:06)
--- NOTE | 2020-08-17 12:07 | DS.PDOC ---
Discharge Summary General Date of Admission Aug 14, 2020 at 23:30 Date of Discharge 08/17/20 Discharge Summary PROCEDURES PERFORMED DURING STAY: EGD : Jackelyn-en-Y gastrojejunostomy with gastrojejunal anastomosis characterized by ulceration. 8 mm ulcer on the jejunal side of the anastomosis, with adherent clot, and bleeding visible vessel. Clips were placed, hemostasis obtained. GI Recommendation: For rebleeding, will need interventional radiology or surgery as the ulcer/bleeding vessel is inaccessible. PPI and Sucralfate. DISCHARGE DIAGNOSES: Upper GIB/ Hematemesis Bleeding Anastomotic ulcer Acute blood loss anemia Thrombocytopenia. New onset Paroxysmal Afib with RVR on 08/06/20 Hx of Morbid obesity and JAQUELIN resolved after gastric bypass. GERD COMPLICATIONS/CHIEF COMPLAINT: Gi Bleed. HOSPITAL COURSE: Patient is a 55-year-old female with past medical history of atrial fibrillation (on ASA 325), Hx of JAQUELIN (s/p CPAP), Gastric bypass, GERD who presented to the emergency room on 08/14/20 with complaints of Hematemesis. Patient reported that on she experienced shortness of breath and came to the emergency room for further evaluation where she was diagnosed with atrial fibrillation. She was started on metoprolol and digoxin and started on an enterically coated ASA 325. On the day of admission patient noted having headaches in the afternoon with nausea. This progressed to vomiting at around 7 or 8 PM. Patient had vomited 3-4 times while at home, filling her toilet bowl with blood. Upon arrival to emergency room, patient again vomited an additional 3-4 times, all with copious amounts of blood. During these events patient has experienced epigastric pain that has improved. Patient had dizziness earlier that has now resolved. Patient has reported that she has had an endoscopy any colonoscopy approximately 3 months ago. Patient was noted to have a polyp that was removed and had esophageal dilation. Patient was also advised to reduce her omeprazole from 40mg to 20mg. On a follow-up visit. she was advised to stop PPIs. Patient was admitted for Upper GIB and acute blood loss anemia. Upper GIB/ Hematemesis Urgent EGD showed bleeding anastomotic ulcer as below Jackelyn-en-Y gastrojejunostomy with gastrojejunal anastomosis characterized by ulceration. 8 mm ulcer on the jejunal side of the anastomosis, with adherent clot, and bleeding visible vessel. Clips were placed, hemostasis obtained. GI Recommendation: For rebleeding, will need interventional radiology or surgery as the ulcer/bleeding vessel is inaccessible. Admit patient to ICU or PCU for ne xt 24-36 hrs. PPI x bid and po sucralfate. Advance diet to full liquids. Acute blood loss anemia/symptomatic anemia 2/2 upper GI bleed s/p 3 units of PRBC. HH stable after EGD Thrombocytopenia - likely 2/2 active GI bleed improved Paroxysmal Atrial fibrillation Currently patient appears to be in normal sinus rhythm c/w Digoxin Atenolol stopped ASA 325 stopped. Hx of Morbid obesity and JAQUELIN resolved after gastric bypass and weight loss. s/p Gastric bypass GERD protonix DISCHARGE MEDICATIONS: Please see below. ALLERGIES: Please see below. PHYSICAL EXAMINATION ON DISCHARGE: VITAL SIGNS: Please see below. General: Lying in bed, No acute distress, Speaking in full sentences, AAOx3 HEENT: NC, AT, PERRLA CVS: RRR, +S1S2, No Rub/ murmur or gallop Lungs: Fair air entry bilaterally, No appreciable wheezing / rales / rhonchi Abdomen: Soft, Non-distended, very mild epigastric tenderness, bowel sounds normal Extremities: No lower extremity edema, No calf tenderness Neuro: No focal motor or sensory deficit Skin: No visible rashes LABORATORY DATA: Please see below. ACTIVITY: [As tolerated]. DIET: Full liquids x 3 days then soft mechanical. DISPOSITION: 01 Home, Self-Care. DISCHARGE INSTRUCTIONS: PMD in [address] Angela Sanders in 3 to 4 weeks DISCHARGE CONDITION: [Stable]. TIME SPENT ON DISCHARGE: 35 minutes. Vital Signs/I&Os Vital Signs Date Time Temp Pulse Resp B/P (MAP) Pulse Ox O2 Delivery O2 Flow Rate FiO2 08/17/20 08:01 69 08/17/20 08:00 97.0 20 121/71 (88) 97 Room Air 08/15/20 03:00 2 I&O- Last 24 Hours up to 6 AM 08/17/20 06:00 Intake Total 1240 ml Output Total 2400 ml Balance -1160 ml Laboratory Data Labs 24H Laboratory Tests 2 08/17/20 04:45: Immature Granulocyte % (Auto) 0.2, Neutrophils (%) (Auto) 43.5, Lymphocytes (%) (Auto) 41.9, Monocytes (%) (Auto) 10.0H, Eosinophils (%) (Auto) 3.7H, Basophils (%) (Auto) 0.7, Neutrophils # (Auto) 1.8, Lymphocytes # (Auto) 1.7, Monocytes # (Auto) 0.4, Eosinophils # (Auto) 0.2, Basophils # (Auto) 0.0, Nucleated Red Blood Cells % (auto) 0.0, Anion Gap 4L, Glomerular Filtration Rate > 60.0, Calcium Level 8.2L, Magnesium Level 1.9 CBC/BMP Laboratory Tests 08/16/20 12:18 08/16/20 17:43 08/16/20 23:46 08/17/20 04:45 Discharge Medications Scheduled Digoxin (Digoxin) 250 Mcg Tablet, 250 MCG PO DAILY, (Reported) Pantoprazole Sodium (Pantoprazole Sodium) 40 Mg Tablet.dr, 40 MG PO BID Sucralfate (Sucralfate) 1 Gm Tablet, 1 GM PO ACHS Allergies Coded Allergies: nitrofurantoin (Verified Allergy, Severe, sob, hives, itchy, 11/06/19) phenazopyridine (Verified Allergy, Severe, sob, itchy, hives, 11/06/19) dexamethasone (Verified Adverse Reaction, Intermediate, rigors with rapid IV administration, 11/09/19) received on 11/06/19 in ER with IV benadryl diphenhydramine (Verified Adverse Reaction, Intermediate, RIGORS WITH RAPID IV ADMINISTRATION, 11/09/19) received on 11/06/19 in ER with DUNG Villalobos MD Aug 17, 2020 12:07
--- NOTE | 2020-08-17 16:38 | ECGEPIP ---
[facility] Test Date: 2020-08-16 Pat Name: DENEEN RAMOS Department: Room: [place] [address] Gender: Female Gsa Coordinator: LETICIA : 1965 Requested By: NEMESIO CLOUD Order Number: [id number] Reading MD: Chetan Fields Measurements Intervals [place] Rate: 56 P: 18 CO: 155 QRS: 40 QRSD: 91 T: 2 QT: 428 QTc: 414 Interpretive Statements SINUS BRADYCARDIA NONSPECIFIC ST & T-WAVE ABNORMALITY Consider digoxin effect. No significant change compared with 08/14/2020. Electronically Signed on 08-17-2020 16:37:45 EST by Chetan Fields
== END 2020-08-17 11:28 | disposition home or self-care (01) | DRG 252 ==
LOC: M ED 20:46 → M ED INP 23:30 → M PCU 08-15 03:11
PROVIDERS: ADMIT Internal Medicine Gastroenterology; ATTEND Internal Medicine Nephrology
PROC: 0DCA8ZZ Extirpation of Matter from Jejunum, Via Natural or Artificial Opening Endoscopic (ICD-10-PCS; 2020-08-15)
PROC: 30233N1 Transfusion of Nonautologous Red Blood Cells into Peripheral Vein, Percutaneous Approach (ICD-10-PCS; 2020-08-15)
PROC: 0W3P8ZZ Control Bleeding in Gastrointestinal Tract, Via Natural or Artificial Opening Endoscopic (ICD-10-PCS; principal; 2020-08-15 00:30)
DX: K91.89 Other postprocedural complications and disorders of digestive system (principal); D69.59 Other secondary thrombocytopenia; K25.4 Chronic or unspecified gastric ulcer with hemorrhage; D62 Acute posthemorrhagic anemia; I48.0 Paroxysmal atrial fibrillation; Z98.84 Bariatric surgery status; K21.9 Gastro-esophageal reflux disease without esophagitis; Z87.891 Personal history of nicotine dependence; Z79.82 Long term (current) use of aspirin; Z79.899 Other long term (current) drug therapy; Z88.8 Allergy status to other drugs, medicaments and biological substances; Y83.2 Surgical operation with anastomosis, bypass or graft as the cause of abnormal reaction of the patient, or of later complication, without mention of misadventure at the time of the procedure; Z20.828 Contact with and (suspected) exposure to other viral communicable diseases

== ENCOUNTER → 2020-09-07 | Outpatient (CLI) | payer OTHER ==
[~2020-09-07] MED LIST changes: +ECOT325T7 PO; +PANT40TA29 PO; +SUCR1TA PO
--- NOTE | 2020-09-09 15:18 | SLEEPHOME ---
DATE: 09/07/2020 ORDERED BY: Dr. Kirby Diagnostic home sleep testing was performed due to concern for the obstructive sleep apnea syndrome. For testing, a nocturnal T3 respiratory monitoring device was used. Continuous record was made of pulse, oxygen saturation, air flow, chest and abdominal strain, and body position. Nine hours and 59 minutes of data were reviewed. There were 8 hours and 14 minutes marked as time in bed. During the interval marked time in bed, there were 182 respiratory events identified of 10 seconds in duration or greater for a respiratory event index of 22.1. The events were obstructive, more frequent but not exclusive to the supine posture. Baseline pulse rate was 52 beats per minute. Pulse rate ranged 45 to 68. Baseline saturation was 95%. Saturations fell to 84% and testing was performed in both the supine and nonsupine positions. IMPRESSION: Abnormal home sleep testing with repetitive respiratory events and oxygen desaturations to 84% with a respiratory event index of 22.1 is consistent with obstructive sleep apnea syndrome. RECOMMENDATION: The patient should be referred for a formal sleep evaluation and consideration of in-laboratory pressure titration.
== END ==
LOC: M SLEEP HO 11:35
PROVIDERS: ATTEND Internal Medicine Cardiovascular Disease
DX: G47.33 Obstructive sleep apnea (adult) (pediatric) (principal)

== ENCOUNTER → 2020-09-23 | Outpatient (CLI) | payer OTHER ==
[2020-09-23 16:49] LABS: BASO # 0.1 10^3/uL (0.0-0.2); BASO % 1.3 % (0.0-1.0); EOS # 0.2 10^3/uL (0.0-0.5); EOS % 5.1 % (0.0-3.0); HEMATOCRIT 38.8 % (36.0-47.0); HEMOGLOBIN 12.3 g/dl (12.0-15.5); LYMPH # 1.5 10^3/uL (1.5-5.0); LYMPH % 39.1 % (24.0-44.0); MEAN CORPUSCULAR HEMOGLOBIN 28.7 pg (27.0-33.0); MEAN CORPUSCULAR HGB CONC 31.7 g/dl (32.0-36.5); MEAN CORPUSCULAR VOLUME 90.7 fl (80.0-96.0); MONO # 0.4 10^3/uL (0.0-0.8); MONO % 9.4 % (0.0-5.0); NEUTROPHILS # 1.8 10^3/uL (1.5-8.5); NEUTROPHILS % 44.8 % (36.0-66.0); PLATELET COUNT, AUTOMATED 196 10^3/uL (150-450); RED BLOOD COUNT 4.28 10^6/uL (4.00-5.40); WHITE BLOOD COUNT 3.9 10^3/uL (4.0-10.0)
[2020-09-23 17:13] LABS: BLOOD UREA NITROGEN 14 MG/DL (7-18); CALCIUM LEVEL 8.8 MG/DL (8.5-10.1); CARBON DIOXIDE LEVEL 29 MEQ/L (21-32); CHLORIDE LEVEL 110 MEQ/L (98-107); CREATININE FOR GFR 0.76 MG/DL (0.55-1.30); GLOMERULAR FILTRATION RATE > 60.0 (>51); GLUCOSE, FASTING 98 MG/DL (70-100); POTASSIUM SERUM 4.4 MEQ/L (3.5-5.1); SODIUM LEVEL 142 MEQ/L (136-145)
== END ==
LOC: M LAB 16:11
PROVIDERS: ATTEND Internal Medicine Cardiovascular Disease
DX: R94.39 Abnormal result of other cardiovascular function study (principal); R07.9 Chest pain, unspecified

== ENCOUNTER → 2020-09-24 | Outpatient (CLI) | payer OTHER | LOC: M LABSMTC 10:36 | PROVIDERS: ATTEND Pediatrics | DX: Z11.52 Encounter for screening for COVID-19 (principal); R94.39 Abnormal result of other cardiovascular function study; R07.9 Chest pain, unspecified ==

== ENCOUNTER 2020-10-28 23:01 | Emergency (ER) | payer OTHER ==
[~2020-10-28] VITALS: Ht 167.6 cm; Wt 220.0 kg
[2020-10-28] MEDS ORDERED: ATEN50TA2 (23:09)
[2020-10-28] MEDS ORDERED: ALBU8.5H (23:09)
[2020-10-28] MEDS ORDERED: DULO1CAP5 (23:09)
--- OUTSIDE RECORDS SUMMARY | 2020-10-28 23:22 | CCD | Continuity of Care Document ---
Author Author Christa BENJAMIN MD Organization Unknown Address [address] [place] [address] [address] [place] [address] Phone [phone] Care Team Providers Care Butter Grader Name Role Phone Dmitri Kirby MD AUTM [phone] [facility] [place] AUTM [phone] Direct, [facility] AUTM Unavailable 2-7 AUTM [phone] Araseli Andrade DO AUTM [phone] Problems Description No Information Available Social History Type Date Description Comments Sex Unknown Allergies, Adverse Reactions, Alerts Description No Information Available Medications Description No Information Available Immunizations Description No Information Available Vital Signs Description No Information Available Results Test Acquired Date Facility Test Result H/L Range Note CBC With Differential 09/23/2020 [facility] White Blood Count 3.9 10 Low 4.0-10.0 Red Blood Count 4.28 10 Normal 4.00-5.40 Hemoglobin 12.3 g/dL Normal 12.0-15.5 Hematocrit 38.8 % Normal 36.0-47.0 Mean Corpuscular Volume 90.7 fl Normal 80.0-96.0 Mean Corpuscular Hemoglobin 28.7 pg Normal 27.0-33.0 Mean Corpuscular HGB Conc 31.7 g/dL Low 32.0-36.5 Red Cell Distribution Width 12.6 % Normal 11.5-14.5 Platelet Count, Automated 196 10 Normal 150-450 Neutrophils % 44.8 % Normal 36.0-66.0 Lymph % 39.1 % Normal 24.0-44.0 [place] % 9.4 % High 0.0-5.0 Eos % 5.1 % High 0.0-3.0 Baso % 1.3 % High 0.0-1.0 Immature Granulocyte % 0.3 % Normal 0-3.0 Nucleated Red Blood Cell % 0.0 % Normal 0-0 Neutrophils # 1.8 10 Normal 1.5-8.5 Lymph # 1.5 10 Normal 1.5-5.0 [place] # 0.4 10 Normal 0.0-0.8 Eos # 0.2 10 Normal 0.0-0.5 Baso # 0.1 10 Normal 0.0-0.2 Basic Metabolic Profile 09/23/2020 [facility] Glucose, Fasting 98 mg/dL Normal 70-100 Blood Urea Nitrogen 14 mg/dL Normal 7-18 Creatinine For GFR 0.76 mg/dL Normal 0.55-1.30 Glomerular Filtration Rate > 60.0 Normal >51 1 Sodium Level 142 mEq/L Normal 136-145 Potassium Serum 4.4 mEq/L Normal 3.5-5.1 Chloride Level 110 mEq/L High 98-107 Carbon Dioxide Level 29 mEq/L Normal 21-32 Anion Gap 3 mEq/L Low 8-16 Calcium Level 8.8 mg/dL Normal 8.5-10.1 1 Units are mL/min/1.73 m2 Chronic Kidney Disease Staging per NKF: Stage I & II GFR >=60 Normal to Mildly Decreased Stage III GFR 30-59 Moderately Decreased Stage IV GFR 15-29 Severely Decreased Stage V GFR <15 Very Little GFR Left ESRD GFR <15 on DATA TYPIST Procedures Date Code Description Status 09/29/2020 50590 Left Heart Cath W/Wo LV & Cueto ry Angiography Completed Medical Devices Description No Information Available Encounters Description No Information Available Assessments Date Code Description Provider 09/29/2020 R07.9 Chest pain, unspecified Desirae Benjamin MD 09/29/2020 R94.39 Abnormal result of other cardiov ascular function study Desirae Benjamin MD Plan of Treatment No Information Available Functional Status Description No Information Available Mental Status Description No Information Available Referrals Refer to Reason for Referral Status Appt Date Desirae Benjamin MD Created [phone] [place] [id number] [phone]
--- OUTSIDE RECORDS SUMMARY | 2020-10-28 23:22 | CCD | Continuity of Care Document ---
Author Author Stress Nuclear/Reg Christa Avalos Organization Unknown Address [address] [employer] [facility], [place] [address] Phone [phone] Care Team Providers Care Communications Strategist Name Role Phone Alysha Breen MD AUTM Araseli Andrade AUTM [phone] Angela Sanders MD AUTM [phone] Problems Active Problems Provider Date Paroxysmal atrial fibrillation Dmitri Kirby MD Onset: Electrocardiogram abnormal Dmitri Kirby MD Onset: 2019 Dietary management surveillance Dmitri Kirby MD Onset: 1 11/01/2019 Precordial pain Dmitri Kirby MD Onset: 08/31/2020 Heart murmur Dmitri Kirby MD Onset: 08/31/2020 Edema Dmitri Kirby MD Onset: 08/31/2020 Obstructive sleep apnea syndrome Dmitri Kirby MD Onset: 08/31/2020 Body mass index 30+ - obesity Dmitri Kirby MD Onset: Social History Type Date Description Comments Sex Unknown ETOH Use Occasionally consumes alcohol Tobacco Use Start: Unknown Patient has never smoked Smoking Status Reviewed: 08/31/20 Patient has never smoked Exercise Type/Frequency Does housework daily Exercise Limitations Fatigue Allergies, Adverse Reactions, Alerts Active Allergies Reaction Severity Comments Date Macrobid 08/31/2020 Pyridium 08/31/2020 Medications Active Medications SIG Qnty Indications Ordering Provide r Date Digox 250mcg Tablets 1 by mouth every day 90tabs I48.0 Dmitri Kirby MD 08/30/2020 Sucralfate 1gm Tablets 1 by mouth two times a day Unknown 08/30/2020 Atenolol 50mg Tablets 1 by mouth every day 90tabs I48.0 Dmitri Kirby MD 08/30/2020 Pantoprazole Sodium 40mg Tablets D R 1 by mouth every day Unknown 08/30/2020 Immunizations Description No Information Available Vital Signs Date Vital Result Comment 08/31/2020 11:23am Weight 227.00 lb Home Weight 226lb home weight Height 66 inches 5'6" BMI (Body Mass Index) 36.6 kg/m2 Heart Rate 64 /min regular Respiratory Rate 16 /min BP Systolic Sitting 126 mmHg large cuff, Ra; 128/ 74 LA BP Diastolic Sitting 72 mmHg large cuff, Ra; 128 /74 LA BP Systolic Lying Down 124 mmHg Ra BP Diastolic Lying Down 68 mmHg Ra O2 % BldC Oximetry 97 % O2 Saturation Level with Exercise 95 % Results Test Acquired Date Facility Test Result H/L Range Note Liver Function Test/ Liver Hep 08/06/2020 [facility] - not interfaced (315)- - Ast/Sgot 29 15-37 Alt/SGPT 28 30-65 Alk Phos 179 High 50-136 Albumin 3.7 3.2-5.2 Total Bilirubin 0.3 0.0-1.0 Total Protein 8.2 6.4-8.2 A/G Ratio 0.8 Low 1.00-1.93 Laboratory test finding 08/06/2020 [facility] - not interf aced (315)- - Magnesium Level 1.9 1.8-2.4 Thyroid Stimulating Hormone 1.140 CBC without Differential 08/06/2020 [facility] - not inter faced (315)- - White Blood Count 6.2 4.0-10.0 Red Blood Count 4.97 4.00-5.40 Platelets 215 172-450 Hemoglobin 14.3 Hematocrit 44.1 Procedures Date Code Description Status 09/08/2020 76689 Multi Event Recorder Interpretat ion Completed 09/08/2020 33523 Multi Event Recorder Hookup Comp leted 08/31/2020 08721 ECG 12-Lead Completed Medical Devices Description No Information Available Encounters Type Date Location Provider Dx Diagnosis Office Visit 08/31/2020 11:15a Main Office Dmitri Kirby MD R07.2 Precordial pain I48.0 Paroxysmal atrial fibrillati on R01.1 Cardiac murmur, unspecified R60.0 Localized edema R94.31 Abnormal electrocardiogram [ ECG] [EKG] G47.33 Obstructive sleep apnea (galina lt) (pediatric) Z68.36 Body mass index [BMI] 36.0-3 6.9, adult Z71.3 Dietary counseling and surve illance Assessments Date Code Description Provider 09/14/2020 R07.2 Precordial pain Stress Nuclear/R eg Treadmill 09/14/2020 R06.00 Dyspnea, unspecified Stress Nucl ear/Reg Treadmill 09/14/2020 R94.31 Abnormal electrocardiogram [ECG] [EKG] Stress Nuclear/Reg Treadmill 09/08/2020 R00.2 Palpitations Holter/Event/Tel emetry 09/08/2020 I48.0 Paroxysmal atrial fibrillation H olter/Event/Telemetry 08/31/2020 R07.2 Precordial pain Dmitri Kiryb MD 08/31/2020 I48.0 Paroxysmal atrial fibrillation J andres Kirby MD 08/31/2020 R01.1 Cardiac murmur, unspecified Vin nargis Kirby MD 08/31/2020 R60.0 Localized edema Dmitri Kirby MD 08/31/2020 R94.31 Abnormal electrocardiogram [ECG] [EKG] Dmitri Kirby MD 08/31/2020 G47.33 Obstructive sleep apnea (adult) (pediatric) Dmitri Kirby MD 08/31/2020 Z68.36 Body mass index [BMI] 36.0-36.9, adult Dmitri Kirby MD 08/31/2020 Z71.3 Dietary counseling and surveilla nce Dmitri Kirby MD Plan of Treatment Future Appointment(s):* 11/23/2020 10:15 am - Dmitri Kirby MD at Main Office * 10/02/2020 11:00 am - ECHO at Main Office 08/31/2020 - Dmitri Kirby MD* R07.2 Precordial pain* Recommendations:* In light of this discomfort and her abnormal EKG, would recommend and objective definition of her coronary prognosis. With her current effort intolerance and beta-oksana therapy, a pharmacological stress heart scan has been advised. Remains on protective atenolol. Have encouraged her continued antireflux measures including avoiding caffeinated beverages, nicotine, and alcohol as well as avoiding eating or drinking within 3 hours of lying down. Remains on combination Pantoprazole and sucralfate. Has a follow-up appointment with gastroenterology in the near future. * I48.0 Paroxysmal atrial fibrillation* Recommendations:* This rhythm disturbance is associated with structural heart disease 90% of the time. I suspect her weight problem, obstructive sleep apnea, and excessive caffe ine/alcohol intake may have all contributed. Currently in sinus rhythm. Not receiving any form of prophylaxis against thromboembolic event at this time because of her recent GI bleeding. Have recommended a 30 day event monitor to document her spontaneous rhythm. Have emphasized the importance of avoiding of caffeinated beverages, alcohol, nicotine, [id number] decongestants etc. Continues on combination digoxin and low-dose atenolol for the time being. * R01.1 Cardiac murmur, unspecified* New Xrays:* US Echocardiogram Transthoracic W Doppler And Color Flow, Scheduled: 10/02/20 * Recommendations:* A follow-up echocardiogram/Doppler study has been requested to redefine valvular structures and function as well as cardiac chamber sizes. * R60.0 Localized edema* Recommendations:* I suspect this may be related to pulmonary hypertension and degree of right heart failure. Could not rule out an element of peripheral venous insufficiency. Have emphasized the importance of dietary measures including salt and caloric restriction. Should avoid cooking with salt, adding salt to food at the table, or eating foods that taste salty. Her echocardiogram/Doppler study will allow us to more objectively define right heart chamber sizes, pulmonary arterial and central venous pressures. * R94.31 Abnormal electrocardiogram [ECG] [EKG]* Recommendations:* Observed repolarization abnormalities are nonspecific and possibly related to left ventricular strain with her weight problem. Digoxin effect may well be contr ibuting. Pending noninvasive test findings. * G47.33 Obstructive sleep apnea (adult) (pediatric)* New Orders:* Home Sleep Study, Scheduled: 09/07/20 * Recommendations:* Especially in light of her ongoing sleep disturbance, clinical pulmonary hypertension and dependent edema as well as her bout of atrial fibrillation, we have recommended a follow-up home sleep study. * Z68.36 Body mass index [BMI] 36.0-36.9, adult* Recommendations:* Had achieved an impressive weight loss bariatric surgery. Undoubtedly, this problem is responsible for the observed left ventricle hypertrophy, sleep apnea and probable secondary pulmonary hypertension. Have emphasized the importance of continued dietary measures and regular exercise i.e. walking at her own pace for at least 30 minutes daily. With her bariatric surgery, she should be following a low carbohydrate diet (avoiding bread, potatoes, pasta, rice, fruit, candy, desserts, and beer etc.). * Z71.3 Dietary counseling and surveillance* Recommendations:* As described above. * All * Comments:* I will ensure that the aforementioned test findings are reported to you along with any further recommendations. Thank you for allowing me to participate in the care of your patient. Best regards. * Follow up:* Clinic visit post testing Functional Status Functional Condition Comment Date Status Independent with all ADL's Activ e Mental Status Description No Information Available Referrals Refer to Reason for Referral Status Appt Date Dmitri Kirby MD [facility] AUTH EMR-EXPIRES 10/22/20. [place] Created [address] [facility] [address] [phone]
--- OUTSIDE RECORDS SUMMARY | 2020-10-28 23:22 | CCD | Continuity of Care Document ---
Author Author Holter/Event/TelemetryLia Organization Unknown Address [address] [place] [address], [place] [address] Phone [phone] Care Team Providers Care Computer Help Desk Representative Name Role Phone Alysha Breen MD AUTM [phone] AlexanderAraseli osuna AUTM [phone] Angela Sanders MD AUTM [phone] Problems Active Problems Provider Date Paroxysmal atrial [...] Note Liver Function Test/ Liver Hep 08/06/2020 [facility] - not interfaced (315)- - Ast/Sgot 29 15-37 Alt/SGPT 28 30-65 Alk Phos 179 High 50-136 Albumin 3.7 3.2-5.2 Total Bilirubin 0.3 0.0-1.0 Total Protein 8.2 6.4-8.2 A/G Ratio 0.8 Low 1.00-1.93 Laboratory test finding 08/06/2020 [facility] - not interf aced (315)- - Magnesium Level 1.9 1.8-2.4 Thyroid Stimulating Hormone 1.140 CBC without Differential 08/06/2020 [facility] - not inter faced (315)- - White Blood Count 6.2 4.0-10.0 Red Blood Count 4.97 4.00-5.40 Platelets 215 172-450 Hemoglobin 14.3 Hematocrit 44.1 Procedures Date Code Description Status 08/31/2020 80333 ECG 12-Lead Completed Medical Devices Description No [...] surve illance Assessments Date Code Description Provider 08/31/2020 R07.2 Precordial pain Dmitri Kirby MD 08/31/2020 I48.0 Paroxysmal atrial fibrillation Jackie Kirby MD 08/31/2020 R01.1 Cardiac murmur, unspecified Vin Kirby MD 08/31/2020 R60.0 Localized edema Dmitri [...] 11:00 am - ECHO at Main Office * 09/14/2020 8:30 am - Stress Nuclear/Reg Treadmill at Main Office 08/31/2020 - Dmitri Kirby MD* R07.2 Precordial pain* New Xrays:* NM Heart Myocardial Perfusion Spect Multiple Studies, Scheduled: 09/14/20 * Recommendations:* In light of this discomfort and [...] near future. * I48.0 Paroxysmal atrial fibrillation* New Orders:* Event Monitor, Scheduled: 09/08/20 * Recommendations:* This rhythm disturbance is associated with structural heart disease 90% of the time. I suspect her weight problem, obstructive sleep apnea, and excessive caffeine/alcohol intake may have all contributed. Currently in sinus rhythm. Not receiving any form of prophylaxis against thromboembolic event at this time because of her recent GI bleeding. Have recommended a 30 day event monitor to document her spontaneous rhythm. Have emphasized the importance of avoiding of caffeinated beverages, alcohol, nicotine, [id number] decongestants etc. Continues on combination digoxin and [...] Referral Status Appt Date Dmitri Kirby MD [facility] AUTH EMR-EXPIRES 10/22/20. [place] Created [id number] [place] [address] [phone]
--- OUTSIDE RECORDS SUMMARY | 2020-10-28 23:23 | CCD ---
Author Author Araseli Andrade DO Organization Araseli Andrade DO Address [address] [facility] [address] [place], [place] [id number] Care Team Providers Care Clay Transporter Name Role Phone Araseli Andrade DO Unavailable Araseli Andrade DO PCP ENCOUNTERS Encounter Performer Loca tion Date Gastro-esophageal reflux disease [SNOMED-CT: 324950582 ] Dr. Araseli Andrade DO 09-08-2020 History of bariatric surgical procedure [SNOMED-CT: 278141322] Dr. Araseli Andrade DO 09-08-2020 Upper gastrointestinal hemorrhage [SNOMED-CT: 17967774 ] Dr. Araseli Andrade DO 08-24-2020 Atrial fibrillation [SNOMED-CT: 21445149] Dr. Araseli Andrade DO 08-24-2020 History of bariatric surgical procedure [SNOMED-CT: 405359999] Dr. Araseli Andrade DO 08-24-2020 Anemia [SNOMED-CT: 709983636] Dr. Jen Andrade DO 08-24-2020 Peptic ulcer [SNOMED-CT: 19549674] Penelope Andrade DO 08-24-2020 Abnormal cervical Papanicolaou smear [SNOMED-CT: 96032 8000] Dr. Araseli Andrade DO 02-24-2020 Routine general medical examination at a health care facility [ICD9: V70.0] Dr. Araseli Andrade DO 10-23-2019 Routine general medical examination at a health care facility [ICD9: V70.0] Dr. Araseli Andrade DO 12-04-2017 Routine general medical examination at a health care facility [ICD9: V70.0] Dr. Araseli Andrade, DO 10-10-2016 Obstructive sleep apnea [SNOMED-CT: 78112728] Dr. Araseli Andrade, DO 07-13-2015 Paroxysmal atrial fibrillation [SNOMED-CT: 863225235] Dr. Araseli Andrade, DO 07-13-2015 Thyroiditis [SNOMED-CT: 86688351] Dr Leah Andrade, DO 07-13-2015 Dysfunctional uterine bleeding [SNOMED-CT: 17582096] Dr. Araseli Andrade, DO 07-06-2015 Iron deficiency anemia [SNOMED-CT: 08664524] Dr. Araseli Andrade, DO 07-06-2015 Morbid obesity [SNOMED-CT: 316925501] Dr. Araseli Andrade, DO 07-06-2015 Edema [SNOMED-CT: 023876914] Dr. Sandy Andrade, DO 07-06-2015 Morbid obesity [SNOMED-CT: 059804986] Dr. Araseli Andrade, DO 04-06-2015 Chronic back pain [SNOMED-CT: 156322828] Dr. Araseli Andrade, DO 04-06-2015 Iron deficiency anemia [SNOMED-CT: 85250508] Dr. Araseli Andrade, DO 04-06-2015 Routine general medical examination at a health care facility [ICD9: V70.0] Dr. Araseli Andrade, DO 03-09-2015 ALLERGIES AND ADVERSE REACTIONS No known allergies. FUNCTIONAL STATUS There is no cognitive and functional status saved for this patient. IMMUNIZATIONS Vaccine Date Status Influenza, unknown (141) 12/04/2017 8 :44:58 AM Refused MEDICAL EQUIPMENT Patient has no history of implanted devices. MEDICATIONS Medication Generic Name Instructions Dosage Start Date Status DULoxetine 30 mg oral delayed release ca psule, [RxNorm: 952259] DULoxetine one po daily 30 09/08/2020 Active atenolol 100 mg oral tablet, [RxNorm: 519563] atenolol one po daily 0 Active Carafate 1 g oral tablet, [RxNorm: 708951] sucralfate one po qid ac and hs 0 1 10/25/2019 Active pantoprazole 40 mg oral delayed release tablet, [RxNorm: 631607] pantoprazole one po bid 0 08/24/2020 Active Bariatric multi vits and minerals Unknown 0 12/04/2017 Active INSURANCE PROVIDERS Payer Name Policy Type P olicy ID Covered Democrat ID Policy [facility] [id number] [facility] ASSESSMENTS # Gastro-esophageal reflux disease (K21.9): # History of bariatric surgical procedure (Z98.84): PROBLEMS Problem Problem Status D ate Started Date Resolved Date Inactivated Abnormal cervical Papanicolaou smear [SNOMED-CT: 62050 8000] Active 02-24-2020 NA NA Morbid obesity [SNOMED-CT: 470448615] Active 03-09-2015 NA NA Routine general medical examination at a health care facility [ICD9: V70.0] Active 03-09-2015 NA NA Chronic back pain [SNOMED-CT: 931630160] Active 04-06-2015 NA NA Iron deficiency anemia [SNOMED-CT: 78530280] Active 04-06-2015 NA NA Gastro-esophageal reflux disease [SNOMED-CT: 079239795 ] Active 10-23-2019 NA NA Breast screening, unspecified [ICD10: Z12.39] Active 10-23-2019 NA NA Upper gastrointestinal hemorrhage [SNOMED-CT: 52146900 ] Active 08-24-2020 NA NA Atrial fibrillation [SNOMED-CT: 72750033] Active 08-24-2020 NA NA Anemia [SNOMED-CT: 730785345] Active 08-24-2020 NA NA Peptic ulcer [SNOMED-CT: 01844763] Active 08-24-2020 NA NA Dysfunctional uterine bleeding [SNOMED-CT: 80235548] Active 07-06-2015 NA NA Edema [SNOMED-CT: 368047152] Active 07-06-2015 NA NA Thyroiditis [SNOMED-CT: 60620076] Active 07-13-2015 NA NA Obstructive sleep apnea [SNOMED-CT: 67125864] Active 07-13-2015 NA NA History of bariatric surgical procedure [SNOMED-CT: 189350457] Active 10-10-2016 NA NA Paroxysmal atrial fibrillation [SNOMED-CT: 773125876] Active 07-13-2015 NA NA Dysuria-frequency syndrome [SNOMED-CT: 9422399] Active 02-01-2016 NA NA PROCEDURES Procedure Date CPT Code Procedure 09/08/2020 10:48:02 83928 Telephone evaluation and management service by a physician or other qualified health child care provider who may report evaluation and management services provided to an established patient, parent, or guardian not originating from a related E/M service provided within the previous 7 days nor leading to an E/M service or procedure within the next 24 hours or soonest available appointment; 11-20 minutes of medical discussion 08/26/2020 11:52:00 3014F Screening mammography results documented and reviewed (PV) 08/24/2020 12:45:52 82036 Office or other outpatient visit for the evaluation and management of an established patient, which requires at least 2 of these 3 berger components: A comprehensive history; A comprehensive examination; Medical decision making of high complexity. Counseling and/or coordination of care with other providers or agencies are provided consistent with the nature of the problem(s) and the patient's and/or family's needs. Usually, the presenting problem(s) are of moderate to high severity. Physicians typically spend 40 minutes hvri-[id number] with the patient and/or family. 08/24/2020 12:45:52 G8427 Eligible clinician attests to documenting in the medical record they obtained, updated, or reviewed the patient's current medications 04/03/2020 09:02:10 3017F Colorectal cancer screening results documented and reviewed (PV) 02/24/2020 09:35:47 96188 Office or other outpatient visit for the evaluation and management of an established patient, which requires at least 2 of these 3 berger components: A detailed history; A detailed examination; Medical decision making of moderate complexity. Counseling and/or coordination of care with other providers or agencies are provided consistent with the nature of the problem(s) and the patient's and/or family's n eeds. Usually, the presenting problem(s) are of moderate to high severity. Physicians typically spend 25 minutes lfwq-mp-tnry with the patient and/or family. 10/23/2019 08:46:23 33594 Periodic comprehensive preventive medicine reevaluation and management of an individual including an age and gender appropriate history, examination, counseling/anticipatory guidance/risk factor reduction interventions, and the ordering of laboratory/diagnostic procedures, established patient; 40-64 years 10/23/2019 08:46:23 G8427 Eligible clinician attests to documenting in the medical record they obtained, updated, or reviewed the patient's current medications 10/23/2019 08:46:23 1036F Current tobacco non-user (CAD, CAP, COPD, PV) (DM) (IBD) 01/17/2018 13:54:26 3014F Screening mammography results documented and reviewed (PV) 12/04/2017 08:35:21 27968 Collection of venous blood by venipuncture 12/04/2017 08:35:21 45544 Periodic comprehensive preventive medicine reevaluation and management of an individual including an age and gender appropriate history, examination, counseling/anticipatory guidance/risk factor reduction interventions, and the ordering of laboratory/diagnostic procedures, established patient; 40-64 years 12/04/2017 08:35:21 3017F Colorectal cancer screening results documented and reviewed (PV) 12/04/2017 08:35:21 1036F Current tobacco non-user (CAD, CAP, COPD, PV) (DM) (IBD) 12/04/2017 08:35:21 G8427 Eligible clinician attests to documenting in the medical record they obtained, updated, or reviewed the patient's current medications 10/10/2016 09:02:30 12825 Collection of venous blood by venipuncture 10/10/2016 09:02:30 74690 Periodic comprehensive preventive medicine reevaluation and management of an individual including an age and gender appropriate history, examination, counseling/anticipatory guidance/risk factor reduction interventions, and the ordering of laboratory/diagnostic procedures, established patient; 40-64 years 07/13/2015 10:50:48 23765 Office or other outpatient visit for the evaluation and management of an established patient, which requires at least 2 of these 3 berger components: An expanded problem focused history; An expanded problem focused examination; Medical decision making of low complexity. Counseling and coordination of care with other providers or agencies are provided consistent with the nature of the problem(s) and the patient's and/or family's needs. Usually, the presenting problem(s) are of low to moderate severity. Physicians typically spend 15 minutes gvwa-km-tuvs with the patient and/or family. 07/06/2015 11:31:00 07055 Office or other outpatient visit for the evaluation and management of an established patient, which requires at least 2 of these 3 berger components: An expanded problem focused history; An expanded problem focused examination; Medical decision making of low complexity. Counseling and coordination of care with other providers or agencies are provided consistent with the nature of the problem(s) and the patient's and/or family's needs. Usually, the presenting problem(s) are of low to moderate severity. Physicians typically spend 15 minutes bgoj-ni-fndd with the patient and/or family. 04/06/2015 10:31:13 93926 Office or other outpatient visit for the evaluation and management of an established patient, which requires at least 2 of these 3 berger components: A detailed history; A detailed examination; Medical decision making of moderate complexity. Counseling and/or coordination of care with other providers or agencies are provided consistent with the nature of the problem(s) and the patient's and/or family's n eeds. Usually, the presenting problem(s) are of moderate to high severity. Physicians typically spend 25 minutes fkvp-ny-[id number] with the patient and/or family. 03/09/2015 08:58:05 47918 Initial comprehensive preventive medicine evaluation and management of an individual including an age and gender appropriate history, examination, counseling/anticipatory guidance/risk factor reduction interventions, and the ordering of laboratory/diagnostic procedures, new patient; 40-64 years REASON FOR REFERRAL No Reason for Referral information available. RESULTS Result Type Result Value Relevant Reference Range Interpretation Date DIGOXIN 0.42 ng/ml 0.9-2 .0 L 08/26/2020 09:56:00 GLOMERULAR FILTRATION RAT 65 mL/min -- No Flag 08/26/2020 09:56:00 GLUCOSE 95 mg/dL 74-106 No Flag 08/26/2020 09:56:00 BLOOD UREA NITROGEN 12 mg/dL 7-18 No Flag 08/26/2020 09:56:00 CREATININE 0.9 mg/dL 0.6 -1.0 No Flag 08/26/2020 09:56:00 SODIUM 142 mmol/L 136-145 No Flag 08/26/2020 09:56:00 POTASSIUM 4.2 mmol/L 3.5 -5.1 No Flag 08/26/2020 09:56:00 CHLORIDE 104 mmol/L 98-1 07 No Flag 08/26/2020 09:56:00 CO2 30 mmol/L 21-32 No Flag 08/26/2020 09:56:00 CALCIUM 9.1 mg/dL 8.5-10 .1 No Flag 08/26/2020 09:56:00 ANION GAP 8.0 mmol/L 5-12 No Flag 08/26/2020 09:56:00 EOS % See notes. % 0-5.0 No Flag 08/26/2020 09:24:00 BASO % See notes. % 0.0- 2.0 No Flag 08/26/2020 09:24:00 GRAN # See notes. K/mm3 2.0-8.00 L 08/26/2020 09:24:00 IG# See notes. K/mm3 0.0 -0.2 No Flag 08/26/2020 09:24:00 LYMPH # See notes. K/mm3 1.0-5.0 No Flag 08/26/2020 09:24:00 MONO # See notes. K/mm3 0.10-1.20 No Flag 08/26/2020 09:24:00 EOS # See notes. K/mm3 0 .0-0.5 No Flag 08/26/2020 09:24:00 BASO # See notes. K/mm3 0.0-0.2 No Flag 08/26/2020 09:24:00 WHITE BLOOD COUNT 3.5 K/mm3 4.0-10.0 L 08/26/2020 09:24:00 RED BLOOD COUNT 4.37 M/mm3 4.00-5.50 No Flag 08/26/2020 09:24:00 HEMOGLOBIN 12.8 gm/dL 12 .0-16.0 No Flag 08/26/2020 09:24:00 HEMATOCRIT 37.8 % 36.0-4 8.8 No Flag 08/26/2020 09:24:00 MEAN CELL VOLUME 86.5 fl 80-96 No Flag 08/26/2020 09:24:00 MEAN CORPUSCULAR HEMOGLOB 29.3 pg 27.0-31.0 No Flag 08/26/2020 09:24:00 MEAN CORPUSCULAR HGB CONC 33.9 g/dl 32.0- 36.0 No Flag 08/26/2020 09:24:00 RED CELL DISTRIBUTION WID 12.3 % 10.0-14.5 No Flag 08/26/2020 09:24:00 PLATELET COUNT 209 K/mm3 172-450 No Flag 08/26/2020 09:24:00 MEAN PLATELET VOLUME 9.9 fl 9.0-13.0 No Flag 08/26/2020 09:24:00 GRAN % 52.9 % 50-80.0 No Flag 08/26/2020 09:24:00 IG% 0.0 % 0.0-0.2 No Flag 08/26/2020 09:24:00 LYMPH % 29.8 % 25.0-50.0 No Flag 08/26/2020 09:24:00 MONO % 11.1 % 2.0-10.0 H 08/26/2020 09:24:00 EOS % 4.8 % 0-5.0 No Flag 08/26/2020 09:24:00 BASO % 1.4 % 0.0-2.0 No Flag 08/26/2020 09:24:00 GRAN # 1.9 K/mm3 2.0-8.00 L 08/26/2020 09:24:00 IG# 0.0 K/mm3 0.0-0.2 No Flag 08/26/2020 09:24:00 LYMPH # 1.1 K/mm3 1.0-5.0 No Flag 08/26/2020 09:24:00 MONO # 0.4 K/mm3 0.10-1. 20 No Flag 08/26/2020 09:24:00 EOS # 0.2 K/mm3 0.0-0.5 No Flag 08/26/2020 09:24:00 BASO # 0.1 K/mm3 0.0-0.2 No Flag 08/26/2020 09:24:00 RED CELL DISTRIBUTION WID See notes. % 10.0- 14.5 No Flag 08/26/2020 09:24:00 PLATELET COUNT See notes. K/mm3 172-450 No Flag 08/26/2020 09:24:00 MEAN PLATELET VOLUME See notes. fl 9.0-13.0 No Flag 08/26/2020 09:24:00 GRAN % See notes. % 50-8 0.0 No Flag 08/26/2020 09:24:00 IG% See notes. % 0.0-0.2 No Flag 08/26/2020 09:24:00 LYMPH % See notes. % 25. 0-50.0 No Flag 08/26/2020 09:24:00 MONO % See notes. % 2.0- 10.0 H 08/26/2020 09:24:00 WHITE BLOOD COUNT See notes. K/mm3 4.0-10.0 L 08/26/2020 09:24:00 RED BLOOD COUNT See notes. M/mm3 4.00-5.50 No Flag 08/26/2020 09:24:00 HEMOGLOBIN See notes. gm/dL 12.0-16.0 No Flag 08/26/2020 09:24:00 HEMATOCRIT See notes. % 36.0-48.8 No Flag 08/26/2020 09:24:00 MEAN CELL VOLUME See notes. fl 80-96 No Flag 08/26/2020 09:24:00 MEAN CORPUSCULAR HEMOGLOB See notes. pg 27.0-31.0 No Flag 08/26/2020 09:24:00 MEAN CORPUSCULAR HGB CONC See notes. g/dl 32.0-36.0 No Flag 08/26/2020 09:24:00 N/A The following update was received on 03-Mar-2020 9:44 Addendum 1 Entered: 03/03/2020-0943 The HPV test is negative for high risk types, test performed at [facility] SPECIMEN ADEQUACY: Satisfactory for evaluation [address] [facility] [address]. 03/03/2020942 Addendum Signed____ MEDARDO SALAZAR ([facility]) 03/03/2020943 CATEGORIZATION: Epithelial cell abnormalities: Infection: Reactive Changes: SPECIMEN ADEQUACY: Satisfactory for evaluation SQUAMOUS CELL: Atypical squamous cells undetermined significance GLANDULAR CELL: CATEGORIZATION: Epithelial cell abnormalities: COMMENTS: HYBRID CAPTURE II test for HPV submitted. Infection: Atrophy. Reactive Changes: SQUAMOUS CELL: Atypical squamous cells undetermined significance GLANDULAR CELL: The cervical PAP smear is a screening test. Both false positive and COMMENTS: HYBRID CAPTURE II test for HPV submitted. false negative results occur. A negative PAP smear does not preclude Atrophy. dysplasia or malignancy. Clinical correlation is required in every case. Further diagnostic procedures may be clinically indicated even if a PAP smear is interpreted as within normal limits. 02/25/2020 - 1042 The cervical PAP smear is a screening test. Both false positive and Signed MEDARDO SALAZAR (ASCP) 02/25/2020 1012 (Prelim) false negative results occur. A negative PAP smear does not preclude Signed Mckenna Glez M.D. 02/25/2020 1043 dysplasia or malignancy. Clinical correlation is required in every case. Further diagnostic procedures may be clinically indicated even if a PAP smear is interpreted as within normal limits. 02/25/2020 - 1042 Signed MEDARDO SALAZAR (ASCP) 02/25/2020 1012 (Prelim) Signed Mckenna Glez M.D. 02/25/2020 1043 N/A N/A 03/03/2020 09:44 :00 HPV APTIMA Negative Neg ative No Flag 03/02/2020 15:09:00 N/A The following update was received on 05-Nov-2019 7:33 Addendum 1 Entered: 11/05/2019-0732 SPECIMEN ADEQUACY: Satisfactory for evaluation The HPV test is negative for high risk types, test performed at [address] [address]. 11/05/2019731 CATEGORIZATION: Epithelial cell abnormalities: Addendum Signed____ MEDARDO SALAZAR CT (ASCP) 11/05/201933 Infection: Reactive Changes: Atrophy with inflammation (atrophic vaginitis) SPECIMEN ADEQUACY: Satisfactory for evaluation SQUAMOUS CELL: ASCUS; LSIL not excluded GLANDULAR CELL: CATEGORIZATION: Epithelial cell abnormalities: COMMENTS: HYBRID CAPTURE II test for HPV submitted. Infection: Reactive Changes: Atrophy with inflammation (atrophic vaginitis) SQUAMOUS CELL: ASCUS; LSIL not excluded GLANDULAR CELL: The cervical PAP smear is a screening test. Both false positive and false negative results occur. A negative PAP smear does not preclude COMMENTS: HYBRID CAPTURE II test for HPV submitted. dysplasia or malignancy. Clinical correlation is required in every case. Further diagnostic procedures may be clinically indicated even if a PAP smear is interpreted as within normal limits. 10/25/20191008 Signed MEDARDO SALAZAR CT (ASCP) 10/24/2019 0952 (Prelim) The cervical PAP smear is a screening test. Both false positive and Signed Lavelle Epstein M.D. 10/25/20191008 false negative results occur. A negative PAP smear does not preclude dysplasia or malignancy. Clinical correlation is required in every case. Further diagnostic procedures may be clinically indicated even if a PAP smear is interpreted as within normal limits. 10/25/20191008 Signed MEDARDO SALAZAR (ASCP) 10/24/2019 0952 (Prelim) Signed Lavelle Epstein M.D. 10/25/2019 1009 N/A N/A 11/05/2019 07:33 :00 HPV APTIMA Negative Neg ative No Flag 11/04/2019 14:10:00 INFLUENZA B NEGATIVE NE GATIVE No Flag 11/09/2018 20:49:00 INFLUENZA A NEGATIVE NE GATIVE No Flag 11/09/2018 20:49:00 STREP A NEGATIVE NEGATI VE No Flag 11/09/2018 20:32:00 THYROID STIMULATING HORMONE 1.450 uIU/ML 0.358-3.740 No Flag 12/04/2017 18:17:00 TOTAL 25(OH) VITAMIN D 43.6 NG/ML 30.0-100.0 No Flag 12/04/2017 18:17:00 HIV 1&2 SCREEN CENTAUR NEGATIVE NEGATIVE No Flag 12/04/2017 18:17:00 GLUCOSE, FASTING 95 MG/DL 70-100 No Flag 12/04/2017 18:17:00 BLOOD UREA NITROGEN 13 MG/DL 7-18 No Flag 12/04/2017 18:17:00 CREATININE FOR GFR 0.67 MG/DL 0.55-1.30 No Flag 12/04/2017 18:17:00 SODIUM LEVEL 144 MEQ/L 1 36-145 No Flag 12/04/2017 18:17:00 POTASSIUM SERUM 3.9 MEQ/L 3.5-5.1 No Flag 12/04/2017 18:17:00 CHLORIDE LEVEL 109 MEQ/L 98-107 H 12/04/2017 18:17:00 CARBON DIOXIDE LEVEL 28 MEQ/L 21-32 No Flag 12/04/2017 18:17:00 ANION GAP 7 MEQ/L 8-16 L 12/04/2017 18:17:00 CALCIUM LEVEL 8.2 MG/DL 8.5-10.1 L 12/04/2017 18:17:00 AST/SGOT 26 U/L 7-37 No Flag 12/04/2017 18:17:00 ALT/SGPT 27 U/L 12-78 No Flag 12/04/2017 18:17:00 ALKALINE PHOSPHATASE 99 U/L 45-117 No Flag 12/04/2017 18:17:00 BILIRUBIN,TOTAL 0.5 MG/DL 0.2-1.0 No Flag 12/04/2017 18:17:00 TOTAL PROTEIN 6.7 GM/DL 6.4-8.2 No Flag 12/04/2017 18:17:00 ALBUMIN 3.6 GM/DL 3.2-5.2 No Flag 12/04/2017 18:17:00 ALBUMIN/GLOBULIN RATIO 1.16 1.00-1.93 No Flag 12/04/2017 18:17:00 GLOMERULAR FILTRATION RATE > 60.0 >51 No Flag 12/04/2017 18:17:00 TRIGLYCERIDES LEVEL 52 MG/DL <150 No Flag 12/04/2017 18:17:00 CHOLESTEROL LEVEL 174 MG/DL <200 No Flag 12/04/2017 18:17:00 HDL CHOLESTEROL 98 MG/DL >40 No Flag 12/04/2017 18:17:00 LDL CHOLESTEROL 65.6 MG/DL <100 No Flag 12/04/2017 18:17:00 NON-HDL-C 76 MG/DL -- No Flag 12/04/2017 18:17:00 CHOLESTEROL RISK RATIO 1.775 <5 No Flag 12/04/2017 18:17:00 WHITE BLOOD COUNT 4.5 10 3/uL 4.0-10.0 No Flag 12/04/2017 17:48:00 RED BLOOD COUNT 4.36 10 6/uL 4.00-5.40 No Flag 12/04/2017 17:48:00 HEMOGLOBIN 12.4 g/dl 12. 0-16.0 No Flag 12/04/2017 17:48:00 HEMATOCRIT 39.0 % 36.0-4 7.0 No Flag 12/04/2017 17:48:00 MEAN CORPUSCULAR VOLUME 89.4 fl 80.0-96.0 No Flag 12/04/2017 17:48:00 MEAN CORPUSCULAR HEMOGLOBIN 28.4 pg 27.0- 33.0 No Flag 12/04/2017 17:48:00 MEAN CORPUSCULAR HGB CONC 31.8 g/dl 32.0- 36.5 L 12/04/2017 17:48:00 RED CELL DISTRIBUTION WIDTH 13.2 % 11.5-14.5 No Flag 12/04/2017 17:48:00 PLATELET COUNT, AUTOMATED 189 10 3/uL 150- 450 No Flag 12/04/2017 17:48:00 NEUTROPHILS % 54.0 % 36. 0-66.0 No Flag 12/04/2017 17:48:00 LYMPH % 35.5 % 24.0-44.0 No Flag 12/04/2017 17:48:00 MONO % 8.5 % 0.0-5.0 H 12/04/2017 17:48:00 EOS % 1.1 % 0.0-3.0 No Flag 12/04/2017 17:48:00 BASO % 0.7 % 0.0-1.0 No Flag 12/04/2017 17:48:00 IMMATURE GRANULOCYTE % 0.2 % 0-3.0 No Flag 12/04/2017 17:48:00 NUCLEATED RED BLOOD CELL % 0.0 % 0-0 No Flag 12/04/2017 17:48:00 NEUTROPHILS # 2.4 10 3/uL 1.8-7.7 No Flag 12/04/2017 17:48:00 LYMPH # 1.6 10 3/uL 1.5- 4.5 No Flag 12/04/2017 17:48:00 MONO # 0.4 10 3/uL 0.0-0 .8 No Flag 12/04/2017 17:48:00 EOS # 0.1 10 3/uL 0.0-0. 50 No Flag 12/04/2017 17:48:00 BASO # 0.0 10 3/uL 0.0-0 .2 No Flag 12/04/2017 17:48:00 STREP A NEGATIVE NEGATI VE No Flag 08/31/2017 07:15:00 INFLUENZA B NEGATIVE NE GATIVE No Flag 08/31/2017 07:15:00 INFLUENZA A NEGATIVE NE GATIVE No Flag 08/31/2017 07:15:00 N/A SPECIMEN ADEQUACY: Satisfactory for evaluation CATEGORIZATION: Negative for Intraepithelial Lesion or Malignancy Infection: Reactive Changes: SQUAMOUS CELL: GLANDULAR CELL: COMMENTS: The cervical PAP smear is a screening test. Both false positive and false negative results occur. A negative PAP smear does not preclude dysplasia or malignancy. Clinical correlation is required in every case. Further diagnostic procedures may be clinically indicated even if a PAP smear is interpreted as within normal limits. 10/11/2016 - 0631 Signed MARLEN CARVAJAL(ASCP) 10/11/2016 0722 N/A N/A 10/11/2016 07:22 :00 WHITE BLOOD COUNT 3.2 K/mm3 4.0-10.0 L 10/10/2016 19:00:00 RED BLOOD COUNT 4.02 M/mm3 4.00-5.40 No Flag 10/10/2016 19:00:00 HEMOGLOBIN 11.1 g/dl 12. 0-16.0 L 10/10/2016 19:00:00 HEMATOCRIT 35.0 % 36.0-4 7.0 L 10/10/2016 19:00:00 MEAN CORPUSCULAR VOLUME 87.1 fl 80.0-96.0 No Flag 10/10/2016 19:00:00 MEAN CORPUSCULAR HEMOGLOBIN 27.6 pg 27.0- 33.0 No Flag 10/10/2016 19:00:00 MEAN CORPUSCULAR HGB CONC 31.7 g/dl 32.0- 36.5 L 10/10/2016 19:00:00 RED CELL DISTRIBUTION WIDTH 13.5 % 11.5-14.5 No Flag 10/10/2016 19:00:00 PLATELET COUNT, AUTOMATED 140 k/mm3 150-450 L 10/10/2016 19:00:00 NEUTROPHILS % 45.0 % 36. 0-66.0 No Flag 10/10/2016 19:00:00 LYMPH % 44.5 % 24.0-44.0 H 10/10/2016 19:00:00 MONO % 5.7 % 0.0-5.0 H 10/10/2016 19:00:00 EOS % 2.2 % 0.0-3.0 No Flag 10/10/2016 19:00:00 BASO % 0.8 % 0.0-1.0 No Flag 10/10/2016 19:00:00 LARGE UNSTAINED CELL % 1.9 % 0.0-4.0 No Flag 10/10/2016 19:00:00 NEUTROPHILS # 1.5 K/mm3 1.8-7.7 L 10/10/2016 19:00:00 LYMPH # 1.4 K/mm3 1.5-4.5 L 10/10/2016 19:00:00 MONO # 0.2 K/mm3 0.0-0.8 No Flag 10/10/2016 19:00:00 EOS # 0.1 K/mm3 0.0-0.50 No Flag 10/10/2016 19:00:00 BASO # 0.0 K/mm3 0.0-0.2 No Flag 10/10/2016 19:00:00 LARGE UNSTAINED CELL # 0.1 K/mm3 0.0-0.4 No Flag 10/10/2016 19:00:00 THYROID STIMULATING HORMONE 1.290 uIU/ML 0.358-3.740 No Flag 10/10/2016 18:33:00 GLOMERULAR FILTRATION RATE > 60.0 >51 No Flag 10/10/2016 18:33:00 GLUCOSE, FASTING 79 MG/DL 70-105 No Flag 10/10/2016 18:33:00 BLOOD UREA NITROGEN 14 MG/DL 7-18 No Flag 10/10/2016 18:33:00 CREATININE FOR GFR 0.70 MG/DL 0.55-1.02 No Flag 10/10/2016 18:33:00 SODIUM LEVEL 145 MEQ/L 1 36-145 No Flag 10/10/2016 18:33:00 POTASSIUM SERUM 4.3 MEQ/L 3.5-5.1 No Flag 10/10/2016 18:33:00 CHLORIDE LEVEL 108 MEQ/L 98-107 H 10/10/2016 18:33:00 CARBON DIOXIDE LEVEL 30 MEQ/L 21-32 No Flag 10/10/2016 18:33:00 ANION GAP 7 MEQ/L 8-16 L 10/10/2016 18:33:00 CALCIUM LEVEL 8.0 MG/DL 8.5-10.1 L 10/10/2016 18:33:00 AST/SGOT 21 U/L 15-37 No Flag 10/10/2016 18:33:00 ALT/SGPT 29 U/L 12-78 No Flag 10/10/2016 18:33:00 ALKALINE PHOSPHATASE 110 U/L 45-117 No Flag 10/10/2016 18:33:00 BILIRUBIN,TOTAL 0.4 MG/DL 0.2-1.0 No Flag 10/10/2016 18:33:00 TOTAL PROTEIN 6.2 GM/DL 6.4-8.2 L 10/10/2016 18:33:00 ALBUMIN 3.3 GM/DL 3.2-5.2 No Flag 10/10/2016 18:33:00 ALBUMIN/GLOBULIN RATIO 1.14 1.00-1.93 No Flag 10/10/2016 18:33:00 TRIGLYCERIDES LEVEL 44 MG/DL <150 No Flag 10/10/2016 18:33:00 CHOLESTEROL LEVEL 141 MG/DL <200 No Flag 10/10/2016 18:33:00 HDL CHOLESTEROL 71 MG/DL >40 No Flag 10/10/2016 18:33:00 LDL CHOLESTEROL 61.2 MG/DL <100 No Flag 10/10/2016 18:33:00 NON-HDL-C 70 MG/DL -- No Flag 10/10/2016 18:33:00 CHOLESTEROL RISK RATIO 1.985 <5 No Flag 10/10/2016 18:33:00 URINE RBC NONE SEEN /hpf 0-3 No Flag 02/01/2016 12:59:00 URINE WBC 1-3 /hpf 0-3 No Flag 02/01/2016 12:59:00 URINE EPITHELIAL CELLS MODERATE /hpf -- No Flag 02/01/2016 12:59:00 URINE MUCUS 2+ NEGATIVE H 02/01/2016 12:59:00 URINE COLOR. RIKKI -- No Flag 02/01/2016 12:44:00 URINE APPEARANCE HAZY -- No Flag 02/01/2016 12:44:00 SPECIFIC GRAVITY,URINE 1.020 1.002-1.035 No Flag 02/01/2016 12:44:00 URINE LEUKOCYTE ESTERASE TRACE NEGATIVE No Flag 02/01/2016 12:44:00 URINE NITRATE NEGATIVE NEGATIVE No Flag 02/01/2016 12:44:00 PH,URINE 5.0 UNITS 5.0-9 .0 No Flag 02/01/2016 12:44:00 URINE PROTEIN TRACE mg/dL NEGATIVE H 02/01/2016 12:44:00 URINE GLUCOSE (UA) NEGATIVE mg/dL NEGATIVE No Flag 02/01/2016 12:44:00 URINE KETONE NEGATIVE mg/dL NEGATIVE No Flag 02/01/2016 12:44:00 URINE UROBILINOGEN NORMAL MG/DL NORMAL No Flag 02/01/2016 12:44:00 URINE BILIRUBIN NEGATIVE NEGATIVE No Flag 02/01/2016 12:44:00 URINE BLOOD TRACE NEGAT ESHA H 02/01/2016 12:44:00 URINE COLOR. RIKKI -- No Flag 02/01/2016 12:44:00 URINE APPEARANCE HAZY -- No Flag 02/01/2016 12:44:00 SPECIFIC GRAVITY,URINE 1.020 1.002-1.035 No Flag 02/01/2016 12:44:00 URINE LEUKOCYTE ESTERASE TRACE NEGATIVE No Flag 02/01/2016 12:44:00 URINE NITRATE NEGATIVE NEGATIVE No Flag 02/01/2016 12:44:00 PH,URINE 5.0 UNITS 5.0-9 .0 No Flag 02/01/2016 12:44:00 URINE PROTEIN TRACE mg/dL NEGATIVE H 02/01/2016 12:44:00 URINE GLUCOSE (UA) NEGATIVE mg/dL NEGATIVE No Flag 02/01/2016 12:44:00 URINE KETONE NEGATIVE mg/dL NEGATIVE No Flag 02/01/2016 12:44:00 URINE UROBILINOGEN NORMAL MG/DL NORMAL No Flag 02/01/2016 12:44:00 URINE BILIRUBIN NEGATIVE NEGATIVE No Flag 02/01/2016 12:44:00 URINE BLOOD TRACE NEGAT ESHA H 02/01/2016 12:44:00 VITAMIN D 25OH 23.2 ng/mL 30-100 L 03/31/2015 15:14:00 VITAMIN D 25OH 23.2 ng/mL 30-100 L 03/31/2015 15:14:00 VITAMIN D 25OH 23.2 ng/mL 30-100 L 03/31/2015 15:14:00 TSH 1.67 mIU/ml 0.34-4.82 No Flag 03/30/2015 10:55:00 TSH 1.67 mIU/ml 0.34-4.82 No Flag 03/30/2015 10:55:00 TSH 1.67 mIU/ml 0.34-4.82 No Flag 03/30/2015 10:55:00 AMYLASE 31 U/L 0-95 No Flag 03/30/2015 10:52:00 AMYLASE 31 U/L 0-95 No Flag 03/30/2015 10:52:00 AMYLASE 31 U/L 0-95 No Flag 03/30/2015 10:52:00 AMYLASE 31 U/L 0-95 No Flag 03/30/2015 10:52:00 CHOLESTEROL 180 mg/dL 0- 200 No Flag 03/30/2015 10:52:00 TRIGLYCERIDES 86 mg/dL 0 -150 No Flag 03/30/2015 10:52:00 LDL CHOLESTEROL 100 mg/dL 0-100 No Flag 03/30/2015 10:52:00 HDL CHOLESTEROL 63 mg/dL >40 No Flag 03/30/2015 10:52:00 CHOL/HDL RATIO 2.9 0.0- 5.0 No Flag 03/30/2015 10:52:00 LDL CHOLESTEROL 100 mg/dL 0-100 No Flag 03/30/2015 10:52:00 HDL CHOLESTEROL 63 mg/dL >40 No Flag 03/30/2015 10:52:00 CHOL/HDL RATIO 2.9 0.0- 5.0 No Flag 03/30/2015 10:52:00 CHOLESTEROL 180 mg/dL 0- 200 No Flag 03/30/2015 10:52:00 TRIGLYCERIDES 86 mg/dL 0 -150 No Flag 03/30/2015 10:52:00 CHOLESTEROL 180 mg/dL 0- 200 No Flag 03/30/2015 10:52:00 TRIGLYCERIDES 86 mg/dL 0 -150 No Flag 03/30/2015 10:52:00 LDL CHOLESTEROL 100 mg/dL 0-100 No Flag 03/30/2015 10:52:00 HDL CHOLESTEROL 63 mg/dL >40 No Flag 03/30/2015 10:52:00 CHOL/HDL RATIO 2.9 0.0- 5.0 No Flag 03/30/2015 10:52:00 CHOLESTEROL 180 mg/dL 0- 200 No Flag 03/30/2015 10:52:00 TRIGLYCERIDES 86 mg/dL 0 -150 No Flag 03/30/2015 10:52:00 LDL CHOLESTEROL 100 mg/dL 0-100 No Flag 03/30/2015 10:52:00 HDL CHOLESTEROL 63 mg/dL >40 No Flag 03/30/2015 10:52:00 CHOL/HDL RATIO 2.9 0.0- 5.0 No Flag 03/30/2015 10:52:00 MAGNESIUM 1.7 meq/L 1.2- 2.3 No Flag 03/30/2015 10:52:00 MAGNESIUM 1.7 meq/L 1.2- 2.3 No Flag 03/30/2015 10:52:00 MAGNESIUM 1.7 meq/L 1.2- 2.3 No Flag 03/30/2015 10:52:00 MAGNESIUM 1.7 meq/L 1.2- 2.3 No Flag 03/30/2015 10:52:00 URINE RBC RARE /hpf 0-3 No Flag 03/30/2015 10:41:00 URINE WBC RARE /hpf 0-3 No Flag 03/30/2015 10:41:00 URINE EPITHELIAL CELLS FEW /hpf -- No Flag 03/30/2015 10:41:00 URINE BACTERIA FEW NONE SEEN No Flag 03/30/2015 10:41:00 URINE MUCUS TRACE NEGAT ESHA H 03/30/2015 10:41:00 URINE RBC RARE /hpf 0-3 No Flag 03/30/2015 10:41:00 URINE WBC RARE /hpf 0-3 No Flag 03/30/2015 10:41:00 URINE EPITHELIAL CELLS FEW /hpf -- No Flag 03/30/2015 10:41:00 URINE BACTERIA FEW NONE SEEN No Flag 03/30/2015 10:41:00 URINE MUCUS TRACE NEGAT ESHA H 03/30/2015 10:41:00 URINE RBC RARE /hpf 0-3 No Flag 03/30/2015 10:41:00 URINE WBC RARE /hpf 0-3 No Flag 03/30/2015 10:41:00 URINE EPITHELIAL CELLS FEW /hpf -- No Flag 03/30/2015 10:41:00 URINE BACTERIA FEW NONE SEEN No Flag 03/30/2015 10:41:00 URINE MUCUS TRACE NEGAT ESHA H 03/30/2015 10:41:00 URINE COLOR. YELLOW -- No Flag 03/30/2015 10:30:00 URINE APPEARANCE HAZY -- No Flag 03/30/2015 10:30:00 SPECIFIC GRAVITY,URINE 1.010 1.002-1.035 No Flag 03/30/2015 10:30:00 URINE LEUKOCYTE ESTERASE TRACE NEGATIVE No Flag 03/30/2015 10:30:00 URINE NITRATE NEGATIVE NEGATIVE No Flag 03/30/2015 10:30:00 PH,URINE 8.0 UNITS 5.0-9 .0 No Flag 03/30/2015 10:30:00 URINE PROTEIN NEGATIVE mg/dL NEGATIVE No Flag 03/30/2015 10:30:00 URINE GLUCOSE (UA) NEGATIVE mg/dL NEGATIVE No Flag 03/30/2015 10:30:00 URINE KETONE NEGATIVE mg/dL NEGATIVE No Flag 03/30/2015 10:30:00 URINE UROBILINOGEN NORMAL MG/DL NORMAL No Flag 03/30/2015 10:30:00 URINE BILIRUBIN NEGATIVE NEGATIVE No Flag 03/30/2015 10:30:00 URINE BLOOD TRACE NEGAT ESHA H 03/30/2015 10:30:00 URINE COLOR. YELLOW -- No Flag 03/30/2015 10:30:00 URINE APPEARANCE HAZY -- No Flag 03/30/2015 10:30:00 SPECIFIC GRAVITY,URINE 1.010 1.002-1.035 No Flag 03/30/2015 10:30:00 URINE LEUKOCYTE ESTERASE TRACE NEGATIVE No Flag 03/30/2015 10:30:00 URINE NITRATE NEGATIVE NEGATIVE No Flag 03/30/2015 10:30:00 PH,URINE 8.0 UNITS 5.0-9 .0 No Flag 03/30/2015 10:30:00 URINE PROTEIN NEGATIVE mg/dL NEGATIVE No Flag 03/30/2015 10:30:00 URINE GLUCOSE (UA) NEGATIVE mg/dL NEGATIVE No Flag 03/30/2015 10:30:00 URINE KETONE NEGATIVE mg/dL NEGATIVE No Flag 03/30/2015 10:30:00 URINE UROBILINOGEN NORMAL MG/DL NORMAL No Flag 03/30/2015 10:30:00 URINE BILIRUBIN NEGATIVE NEGATIVE No Flag 03/30/2015 10:30:00 URINE BLOOD TRACE NEGAT ESHA H 03/30/2015 10:30:00 URINE COLOR. YELLOW -- No Flag 03/30/2015 10:30:00 URINE APPEARANCE HAZY -- No Flag 03/30/2015 10:30:00 SPECIFIC GRAVITY,URINE 1.010 1.002-1.035 No Flag 03/30/2015 10:30:00 URINE LEUKOCYTE ESTERASE TRACE NEGATIVE No Flag 03/30/2015 10:30:00 URINE NITRATE NEGATIVE NEGATIVE No Flag 03/30/2015 10:30:00 PH,URINE 8.0 UNITS 5.0-9 .0 No Flag 03/30/2015 10:30:00 URINE PROTEIN NEGATIVE mg/dL NEGATIVE No Flag 03/30/2015 10:30:00 URINE GLUCOSE (UA) NEGATIVE mg/dL NEGATIVE No Flag 03/30/2015 10:30:00 URINE KETONE NEGATIVE mg/dL NEGATIVE No Flag 03/30/2015 10:30:00 URINE UROBILINOGEN NORMAL MG/DL NORMAL No Flag 03/30/2015 10:30:00 URINE BILIRUBIN NEGATIVE NEGATIVE No Flag 03/30/2015 10:30:00 URINE BLOOD TRACE NEGAT ESHA H 03/30/2015 10:30:00 URINE COLOR. YELLOW -- No Flag 03/30/2015 10:30:00 URINE APPEARANCE HAZY -- No Flag 03/30/2015 10:30:00 SPECIFIC GRAVITY,URINE 1.010 1.002-1.035 No Flag 03/30/2015 10:30:00 URINE LEUKOCYTE ESTERASE TRACE NEGATIVE No Flag 03/30/2015 10:30:00 URINE NITRATE NEGATIVE NEGATIVE No [facility] 03/30/2015 10:30:00 PH,URINE 8.0 UNITS 5.0-9 .0 No Flag 03/30/2015 10:30:00 URINE PROTEIN NEGATIVE mg/dL NEGATIVE No Flag 03/30/2015 10:30:00 URINE GLUCOSE (UA) NEGATIVE mg/dL NEGATIVE No [facility] 03/30/2015 10:30:00 URINE KETONE NEGATIVE mg/dL NEGATIVE No Flag 03/30/2015 10:30:00 URINE UROBILINOGEN NORMAL MG/DL NORMAL No Flag 03/30/2015 10:30:00 URINE BILIRUBIN NEGATIVE NEGATIVE No Flag 03/30/2015 10:30:00 URINE BLOOD TRACE NEGAT ESHA H 03/30/2015 10:30:00 HGBA1C 5.3 % 4.8-6.0 No [facility] 03/30/2015 10:28:00 HGBA1C 5.3 % 4.8-6.0 No [facility] 03/30/2015 10:28:00 HGBA1C 5.3 % 4.8-6.0 No [facility] 03/30/2015 10:28:00 ESTIMATED AVERAGE GLUCOSE 105.4 mg/dL -- No Flag 03/30/2015 10:28:00 ESTIMATED AVERAGE GLUCOSE 105.4 mg/dL -- No Flag 03/30/2015 10:28:00 ESTIMATED AVERAGE GLUCOSE 105.4 mg/dL -- No [facility] 03/30/2015 10:28:00 WHITE BLOOD COUNT 5.6 K/mm3 4.0-10.0 No [facility] 03/30/2015 10:01:00 RED BLOOD COUNT 4.65 M/mm3 4.00-5.50 No [facility] 03/30/2015 10:01:00 HEMOGLOBIN 11.7 gm/dL 12 .0-16.0 L 03/30/2015 10:01:00 HEMATOCRIT 36.5 % 36.0-4 8.8 No [facility] 03/30/2015 10:01:00 MEAN CELL VOLUME 78.5 fl 80-96 L 03/30/2015 10:01:00 MEAN CORPUSCULAR HEMOGLOB 25.2 pg 27.0-31.0 L 03/30/2015 10:01:00 MEAN CORPUSCULAR HGB CONC 32.1 g/dl 32.0- 36.0 No [facility] 03/30/2015 10:01:00 RED CELL DISTRIBUTION WID 16.4 % 10.0-14.5 H 03/30/2015 10:01:00 PLATELET COUNT 191 K/mm3 172-450 No Flag 03/30/2015 10:01:00 MEAN PLATELET VOLUME 9.9 fl 9.0-13.0 No Flag 03/30/2015 10:01:00 GRAN % 61.5 % 50-80.0 No Flag 03/30/2015 10:01:00 LYMPH % 28.4 % 25.0-50.0 No Flag 03/30/2015 10:01:00 MONO % 8.0 % 2.0-10.0 No Flag 03/30/2015 10:01:00 EOS % 1.4 % 0-5.0 No Flag 03/30/2015 10:01:00 BASO % 0.7 % 0.0-2.0 No Flag 03/30/2015 10:01:00 GRAN # 3.4 2.0-8.00 No Flag 03/30/2015 10:01:00 LYMPH # 1.6 1.0-5.0 No Flag 03/30/2015 10:01:00 MONO # 0.5 -- No Flag 03/30/2015 10:01:00 EOS # 0.1 0.0-0.5 No Flag 03/30/2015 10:01:00 BASO # 0.0 K/mm3 0.0-0.4 No Flag 03/30/2015 10:01:00 WHITE BLOOD COUNT 5.6 K/mm3 4.0-10.0 No [facility] 03/30/2015 10:01:00 RED BLOOD COUNT 4.65 M/mm3 4.00-5.50 No [facility] 03/30/2015 10:01:00 HEMOGLOBIN 11.7 gm/dL 12 .0-16.0 L 03/30/2015 10:01:00 HEMATOCRIT 36.5 % 36.0-4 8.8 No [facility] 03/30/2015 10:01:00 MEAN CELL VOLUME 78.5 fl 80-96 L 03/30/2015 10:01:00 MEAN CORPUSCULAR HEMOGLOB 25.2 pg 27.0-31.0 L 03/30/2015 10:01:00 MEAN CORPUSCULAR HGB CONC 32.1 g/dl 32.0- 36.0 No Flag 03/30/2015 10:01:00 RED CELL DISTRIBUTION WID 16.4 % 10.0-14.5 H 03/30/2015 10:01:00 PLATELET COUNT 191 K/mm3 172-450 No Flag 03/30/2015 10:01:00 MEAN PLATELET VOLUME 9.9 fl 9.0-13.0 No Flag 03/30/2015 10:01:00 GRAN % 61.5 % 50-80.0 No Flag 03/30/2015 10:01:00 LYMPH % 28.4 % 25.0-50.0 No Flag 03/30/2015 10:01:00 MONO % 8.0 % 2.0-10.0 No Flag 03/30/2015 10:01:00 EOS % 1.4 % 0-5.0 No Flag 03/30/2015 10:01:00 BASO % 0.7 % 0.0-2.0 No Flag 03/30/2015 10:01:00 GRAN # 3.4 2.0-8.00 No Flag 03/30/2015 10:01:00 LYMPH # 1.6 1.0-5.0 No [facility] 03/30/2015 10:01:00 MONO # 0.5 -- No Flag 03/30/2015 10:01:00 EOS # 0.1 0.0-0.5 No Flag 03/30/2015 10:01:00 BASO # 0.0 K/mm3 0.0-0.4 No Flag 03/30/2015 10:01:00 WHITE BLOOD COUNT 5.6 K/mm3 4.0-10.0 No [facility] 03/30/2015 10:01:00 RED BLOOD COUNT 4.65 M/mm3 4.00-5.50 No [facility] 03/30/2015 10:01:00 HEMOGLOBIN 11.7 gm/dL 12 .0-16.0 L 03/30/2015 10:01:00 HEMATOCRIT 36.5 % 36.0-4 8.8 No Flag 03/30/2015 10:01:00 MEAN CELL VOLUME 78.5 fl 80-96 L 03/30/2015 10:01:00 MEAN CORPUSCULAR HEMOGLOB 25.2 pg 27.0-31.0 L 03/30/2015 10:01:00 MEAN CORPUSCULAR HGB CONC 32.1 g/dl 32.0- 36.0 No [facility] 03/30/2015 10:01:00 RED CELL DISTRIBUTION WID 16.4 % 10.0-14.5 H 03/30/2015 10:01:00 PLATELET COUNT 191 K/mm3 172-450 No Flag 03/30/2015 10:01:00 MEAN PLATELET VOLUME 9.9 fl 9.0-13.0 No Flag 03/30/2015 10:01:00 GRAN % 61.5 % 50-80.0 No Flag 03/30/2015 10:01:00 LYMPH % 28.4 % 25.0-50.0 No Flag 03/30/2015 10:01:00 MONO % 8.0 % 2.0-10.0 No Flag 03/30/2015 10:01:00 EOS % 1.4 % 0-5.0 No Flag 03/30/2015 10:01:00 BASO % 0.7 % 0.0-2.0 No Flag 03/30/2015 10:01:00 GRAN # 3.4 2.0-8.00 No Flag 03/30/2015 10:01:00 LYMPH # 1.6 1.0-5.0 No Flag 03/30/2015 10:01:00 MONO # 0.5 -- No Flag 03/30/2015 10:01:00 EOS # 0.1 0.0-0.5 No Flag 03/30/2015 10:01:00 BASO # 0.0 K/mm3 0.0-0.4 No Flag 03/30/2015 10:01:00 VITAMIN B12 273.0 pg/mL 211-946 No Flag 03/30/2015 09:54:00 FOLATE 12.7 ng/mL -- No Flag 03/30/2015 09:54:00 VITAMIN B12 273.0 pg/mL 211-946 No Flag 03/30/2015 09:54:00 FOLATE 12.7 ng/mL -- No Flag 03/30/2015 09:54:00 VITAMIN B12 273.0 pg/mL 211-946 No Flag 03/30/2015 09:54:00 FOLATE 12.7 ng/mL -- No Flag 03/30/2015 09:54:00 VITAMIN B12 273.0 pg/mL 211-946 No Flag 03/30/2015 09:54:00 FOLATE 12.7 ng/mL -- No Flag 03/30/2015 09:54:00 SOCIAL HISTORY Social History Observation Description Dates Observed Smoking Status Former smoker, [SNOME D-CT: [id number]], 0.50 pk yrs/24.00 yrs quit 03/09/2015 - 03/09/2015 TREATMENT PLAN Encounter Date [facility] 09/08/2020 10:48:02 PRESCRIBE: DULoxetine 30 mg oral delayed release capsule, one po daily, # 30, RF: 5. 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 ADDED Current Meds: pantoprazole 40 mg oral delayed release tablet, one po bid, # 0, RF: 0. REMOVED from Current Meds: omeprazole 20 mg oral delayed release tablet, two po daily, # 180, RF: 3. (Transmitted by Araseli Andrade DO) Date Prescribed: 10/23/2019 ORDERED/ADVISED: Order Date 08-24-2020 - CBC with diff (automated) (I48.91, Z98.84, K92.89) - Digoxin Level (I48.91, Z98.84, K92.89) - BMP (Basic Metabolic Panel) (I48.91, Z98.84, K92.89) This visit was spent in reviewing with the patient their chart, labs and testing, speaking with the patient via telemedicine(video feed), answering questions and completing a plan. she knew she had afib and it is gone now. she will arrange a fu with Angela Sanders 45 min video 08/24/2020 12:45:52 PRESCRIBE: atenolol 100 mg oral tablet, one po daily, ADDED Current Meds: Carafate 1 g oral tablet, one po qid ac and hs, # 0, RF: 0. ADDED Current Meds: pantoprazole 40 mg oral delayed release tablet, one po bid, # 0, RF: 0. REMOVED from Current Meds: omeprazole 20 mg oral delayed release tablet, two po daily, # 180, RF: 3. (Transmitted by Araseli Andrade DO) Date Prescribed: 10/23/2019 ORDERED/ADVISED: Order Date 08-24-2020 - CBC with diff (automated) (I48.91, Z98.84, K92.89) - Digoxin Level (I48.91, Z98.84, K92.89) - BMP (Basic Metabolic Panel) (I48.91, Z98.84, K92.89) This visit was spent in reviewing with the patient their chart, labs and testing, speaking with the patient via telemedicine(video feed), answering questions and completing a plan. she knew she had afib and it is gone now. she will arrange a fu with Angela Sanders 45 min video 08/24/2020 12:45:52 PRESCRIBE: atenolol 100 mg oral tablet, one po daily, ADDED Current Meds: Carafate 1 g oral tablet, one po qid ac and hs, # 0, RF: 0. ADDED Current Meds: pantoprazole 40 mg oral delayed release tablet, one po bid, # 0, RF: 0. REMOVED from Current Meds: omeprazole 20 mg oral delayed release tablet, two po daily, # 180, RF: 3. (Transmitted by Araseli [place], ) Date Prescribed: 10/23/2019 ORDERED/ADVISED: Order Date 08-24-2020 - CBC with diff (automated) (I48.91, Z98.84, K92.89) - Digoxin Level (I48.91, Z98.84, K92.89) - BMP (Basic Metabolic Panel) (I48.91, Z98.84, K92.89) This visit was spent in reviewing with the patient their chart, labs and testing, speaking with the patient via telemedicine(video feed), answering questions and completing a plan. she knew she had afib and it is gone now. she will arrange a fu with Angela Sanders 45 min video 02/24/2020 09:35:47 ORDERED/ADVISED: Order Date 02-24-2020 - Pap with hpv screen (R87.619) Counseling and coordination of care: time a significant factor for this patient encounter...25minutes FTF 02/24/2020 09:35:47 ORDERED/ADVISED: Order Date 02-24-2020 - Pap with hpv screen (R87.619) 02/24/2020 09:35:47 ORDERED/ADVISED: Order Date 02-24-2020 - Pap with hpv screen (R87.619) 10/23/2019 08:46:23 Plan printed and provided to patient: PRESCRIBE: omeprazole 20 mg oral delayed release tablet, two po daily, # 180, RF: 3. (Transmitted by Araseli Andrade DO) ADDED Current Meds: omeprazole 20 mg oral delayed release tablet, two po daily, # 0, RF: 0. PROVIDED HM: CDSMP Given: "the obesity code", " the diabetes code", and "quide to fasting" also "the longevity solution" by Jona Pacheco MD You can download a [employer] gerald to your computer and get these books on [employer]. Watch the movie "the magic pill" documentary on [employer] Also [email or web address] movie call " Fat" the documentary Google Jona Pacheco Podcast [employer] and watch it (1 hr) You can also find many you tube videos by Dr. Pacheco. Ask to join the facebook group called jona tavera obesity code support group. PROVIDED HM: High Blood Pressure in Adults: Screening Given: 130/76 PROVIDED HM: Screening for Depression in Adults Given: 2 question screen neg PROVIDED HM: Screening for Anxiety Given: Score of zero PROVIDED HM: Tobacco use counseling and interventions: non- adults Given: NI PROVIDED HM: Statin Use for the Primary Prevention of Cardiovascular Disease in Adults: Preventive Medication Given: not indicated ORDERED/ADVISED: Order Date 10-23-2019 - Angela Horton (Gastroenterology) (needs egd and colonoscopy) (K21.9, Z9 8.84, Z00.00) ORDERED/ADVISED: Order Date 10-23-2019 - Screening Mammogram (Z12.39, Z00.00) 10/23/2019 08:46:23 Plan printed and provided to patient: PRESCRIBE: omeprazole 20 mg oral delayed release tablet, two po daily, # 180, RF: 3. (Transmitted by Araseli Andrade DO) ADDED Current Meds: omeprazole 20 mg oral delayed release tablet, two po daily, # 0, RF: 0. PROVIDED HM: CDSMP Given: "the obesity code", " the diabetes code", and "quide to fasting" also "the longevity solution" by Jona Pacheco MD You can download a [employer] gerald to your computer and get these books on [employer]. Watch the movie "the magic pill" documentary on [employer] Also [email or web address] movie call " Fat" the documentary Google Jona Pacheco [employer]cast [employer] and watch it (1 hr) You can also find many you tube videos by Dr. Pacheco. Ask to join the facebook group called jona pacheco and mary tavera obesity code support group. PROVIDED HM: High Blood Pressure in Adults: Screening Given: 130/76 PROVIDED HM: Screening for Depression in Adults Given: 2 question screen neg PROVIDED HM: Screening for Anxiety Given: Score of zero PROVIDED HM: Tobacco use counseling and interventions: non- adults Given: NI PROVIDED HM: Statin Use for the Primary Prevention of Cardiovascular Disease in Adults: Preventive Medication Given: not indicated ORDERED/ADVISED: Order Date 10-23-2019 - Angela Horton (Gastroenterology) (needs egd and colonoscopy) (K21.9, Z9 8.84, Z00.00) ORDERED/ADVISED: Order Date 10-23-2019 - Screening Mammogram (Z12.39, Z00.00) 10/23/2019 08:46:23 Plan printed and provided to patient: PRESCRIBE: omeprazole 20 mg oral delayed release tablet, two po daily, # 180, RF: 3. (Transmitted by Araseli Andrade DO) ADDED Current Meds: omeprazole 20 mg oral delayed release tablet, two po daily, # 0, RF: 0. PROVIDED HM: CDSMP Given: "the obesity code", " the diabetes code", and "quide to fasting" also "the longevity solution" by Jona Pacheco MD You can download a [employer] gerald to your computer and get these books on [employer]. Watch the movie "the magic pill" documentary on [employer] Also [email or web address] movie call " Fat" the documentary Google Jona Pacheco Podcast [employer] and watch it (1 hr) You can also find many you tube videos by Dr. Pacheco. Ask to join the facebook group called jona pacheco and mary tavera obesity code support group. PROVIDED HM: High Blood Pressure in Adults: Screening Given: 130/76 PROVIDED HM: Screening for Depression in Adults Given: 2 question screen neg PROVIDED HM: Screening for Anxiety Given: Score of zero PROVIDED HM: Tobacco use counseling and interventions: non- adults Given: NI PROVIDED HM: Statin Use for the Primary Prevention of Cardiovascular Disease in Adults: Preventive Medication Given: not indicated ORDERED/ADVISED: Order Date 10-23-2019 - Angela Horton (Gastroenterology) (needs egd and colonoscopy) (K21.9, Z9 8.84, Z00.00) ORDERED/ADVISED: Order Date 10-23-2019 - Screening Mammogram (Z12.39, Z00.00) 12/04/2017 08:35:21 Plan printed and provided to patient: ADDED Current Meds: Bariatric multi vits and minerals, # 0, RF: 0. PROVIDED HM: Aspirin preventive medication: adults aged 50 to 59 years with a >= 10% 10-year cardiovascular risk Given: Recommend 81mg ASA daily PROVIDED HM: Colorectal Cancer: Screening Given: Patient has declined this Decision Support at this time. PROVIDED HM: High Blood Pressure in Adults: Screening Given: 132/80 PROVIDED VACCINATION: (Refused) Influenza, Parent / Patient Refused PROVIDED HM: Screening and Behavioral Counseling Interventions in Primary Care to Reduce Alcohol Misuse in Adults Given: Audit-C 1. How often do you have a drink containg alcohol? a. never b. monthly or less c. 2-4 times a month d.2-3 times a week(3) e. 4 or more times a week 2.How many standard drinks containing alcohol do you have on a typical day? a. 1or2(0) b. 3or4 c. 5or6 d. 7 to9 e. 10 or more 3.How often do you have six or more drinks on one occasion? a. Never(0) b. less than monthly c. monthly c. weekly e. daily or almost daily Score (3) PROVIDED HM: Screening for Depression in Adults Given: Neg PROVIDED HM: Screening for and Management of Obesity in Adults Given: She has has gastric bypass...taking her vitamins religiously PROVIDED HM: Tobacco use counseling and interventions: non- adults Given: NI ORDERED/ADVISED: - 25 hyrdroxyvitamin D ICD Codes (N93.8, Z98.84, D50.9, Z00.00) - CBC with diff (automated) ICD Codes (N93.8, Z98.84, D50.9, Z00.00) - CMP (Complete Metabolic Panel) ICD Codes (N93.8, Z98.84, D50.9, Z00.00) - HIV test ICD Codes (N93.8, Z98.84, D50.9, Z00.00) - Lipid Panel ICD Codes (N93.8, Z98.84, D50.9, Z00.00) - TSH (Fatigue and malaise) ICD Codes (N93.8, Z98.84, D50.9, Z00.00) - Blood Draw ICD Codes (N93.8, Z98.84, D50.9, Z00.00) ORDERED/ADVISED: - Ely Pearl ([employer]) (? ablation) ICD Codes (N93.8, Z98.84, D50.9, Z00.00) ORDERED/ADVISED: - Screening Mammogram ICD Codes (Z00.00) 12/04/2017 08:35:21 Plan printed and provided to patient: ADDED Current Meds: Bariatric multi vits and minerals, # 0, RF: 0. PROVIDED HM: Aspirin preventive medication: adults aged 50 to 59 years with a >= 10% 10-year cardiovascular risk Given: Recommend 81mg ASA daily PROVIDED HM: Colorectal Cancer: Screening Given: Patient has declined this Decision Support at this time. PROVIDED HM: High Blood Pressure in Adults: Screening Given: 132/80 PROVIDED VACCINATION: (Refused) Influenza, Parent / Patient Refused PROVIDED HM: Screening and Behavioral Counseling Interventions in Primary Care to Reduce Alcohol Misuse in Adults Given: Audit-C 1. How often do you have a drink containg alcohol? a. never b. monthly or less c. 2-4 times a month d.2-3 times a week(3) e. 4 or more times a week 2.How many standard drinks containing alcohol do you have on a typical day? a. 1or2(0) b. 3or4 c. 5or6 d. 7 to9 e. 10 or more 3.How often do you have six or more drinks on one occasion? a. Never(0) b. less than monthly c. monthly c. weekly e. daily or almost daily Score (3) PROVIDED HM: Screening for Depression in Adults Given: Neg PROVIDED HM: Screening for and Management of Obesity in Adults Given: She has has gastric bypass...taking her vitamins religiously PROVIDED HM: Tobacco use counseling and interventions: non- adults Given: NI ORDERED/ADVISED: - 25 hyrdroxyvitamin D ICD Codes (N93.8, Z98.84, D50.9, Z00.00) - CBC with diff (automated) ICD Codes (N93.8, Z98.84, D50.9, Z00.00) - CMP (Complete Metabolic Panel) ICD Codes (N93.8, Z98.84, D50.9, Z00.00) - HIV test ICD Codes (N93.8, Z98.84, D50.9, Z00.00) - Lipid Panel ICD Codes (N93.8, Z98.84, D50.9, Z00.00) - TSH (Fatigue and malaise) ICD Codes (N93.8, Z98.84, D50.9, Z00.00) - Blood Draw ICD Codes (N93.8, Z98.84, D50.9, Z00.00) ORDERED/ADVISED: - Ely Pearl ([employer]TER) (? ablation) ICD Codes (N93.8, Z98.84, D50.9, Z00.00) ORDERED/ADVISED: - Screening Mammogram ICD Codes (Z00.00) 12/04/2017 08:35:21 Plan printed and provided to patient: ADDED Current Meds: Bariatric multi vits and minerals, # 0, RF: 0. PROVIDED HM: Aspirin preventive medication: adults aged 50 to 59 years with a >= 10% 10-year cardiovascular risk Given: Recommend 81mg ASA daily PROVIDED HM: Colorectal Cancer: Screening Given: Patient has declined this Decision Support at this time. PROVIDED HM: High Blood Pressure in Adults: Screening Given: 132/80 PROVIDED VACCINATION: (Refused) Influenza, Parent / Patient Refused PROVIDED HM: Screening and Behavioral Counseling Interventions in Primary Care to Reduce Alcohol Misuse in Adults Given: Audit-C 1. How often do you have a drink containg alcohol? a. never b. monthly or less c. 2-4 times a month d.2-3 times a week(3) e. 4 or more times a week 2.How many standard drinks containing alcohol do you have on a typical day? a. 1or2(0) b. 3or4 c. 5or6 d. 7 to9 e. 10 or more 3.How often do you have six or more drinks on one occasion? a. Never(0) b. less than monthly c. monthly c. weekly e. daily or almost daily Score (3) PROVIDED HM: Screening for Depression in Adults Given: Neg PROVIDED HM: Screening for and Management of Obesity in Adults Given: She has has gastric bypass...taking her vitamins religiously PROVIDED HM: Tobacco use counseling and interventions: non- adults Given: NI ORDERED/ADVISED: - 25 hyrdroxyvitamin D ICD Codes (N93.8, Z98.84, D50.9, Z00.00) - CBC with diff (automated) ICD Codes (N93.8, Z98.84, D50.9, Z00.00) - CMP (Complete Metabolic Panel) ICD Codes (N93.8, Z98.84, D50.9, Z00.00) - HIV test ICD Codes (N93.8, Z98.84, D50.9, Z00.00) - Lipid Panel ICD Codes (N93.8, Z98.84, D50.9, Z00.00) - TSH (Fatigue and malaise) ICD Codes (N93.8, Z98.84, D50.9, Z00.00) - Blood Draw ICD Codes (N93.8, Z98.84, D50.9, Z00.00) ORDERED/ADVISED: - Ely Pearl ([employer] L[employer]TER) (? ablation) ICD Codes (N93.8, Z98.84, D50.9, Z00.00) ORDERED/ADVISED: - Screening Mammogram ICD Codes (Z00.00) 10/10/2016 09:02:30 Plan printed and provided to patient: ORDERED/ADVISED: - Screening Mammogram ICD Codes (N93.8, Z00.00) PROVIDED HM: Healthy Diet and Physical Activity: Counseling Adults with High Risk of CVD Given: Urged to walk at least 5 times/week and eat a more plant based diet. DASH diet(Dietary Approaches to Stop High BP Fruits/vegetables/whole grains/Low fat dairy Limit saturated fats/total fat and sodium Recommend foods high in calcium and potassium Vitamin D supplement PROVIDED HM: High Blood Pressure in Adults: Screening Given: ORDERED/ADVISED: - CBC with diff (automated) ICD Codes (N93.8, Z98.84, D50.9, Z00.00, E06.9) - CMP (Complete Metabolic Panel) ICD Codes (N93.8, Z98.84, D50.9, Z00.00, E06.9) - Lipid Panel ICD Codes (N93.8, Z98.84, D50.9, Z00.00, E06.9) - TSH ICD Codes (N93.8, Z98.84, D50.9, Z00.00, E06.9) - Blood Draw ICD Codes (N93.8, Z98.84, D50.9, Z00.00, E06.9) 10/10/2016 09:02:30 Plan printed and provided to patient: ORDERED/ADVISED: - Screening Mammogram ICD Codes (N93.8, Z00.00) PROVIDED HM: Healthy Diet and Physical Activity: Counseling Adults with High Risk of CVD Given: Urged to walk at least 5 times/week and eat a more plant based diet. DASH diet(Dietary Approaches to Stop High BP Fruits/vegetables/whole grains/Low fat dairy Limit saturated fats/total fat and sodium Recommend foods high in calcium and potassium Vitamin D supplement PROVIDED HM: High Blood Pressure in Adults: Screening Given: ORDERED/ADVISED: - CBC with diff (automated) ICD Codes (N93.8, Z98.84, D50.9, Z00.00, E06.9) - CMP (Complete Metabolic Panel) ICD Codes (N93.8, Z98.84, D50.9, Z00.00, E06.9) - Lipid Panel ICD Codes (N93.8, Z98.84, D50.9, Z00.00, E06.9) - TSH ICD Codes (N93.8, Z98.84, D50.9, Z00.00, E06.9) - Blood Draw ICD Codes (N93.8, Z98.84, D50.9, Z00.00, E06.9) 10/10/2016 09:02:30 Plan printed and provided to patient: ORDERED/ADVISED: - Screening Mammogram ICD Codes (N93.8, Z00.00) PROVIDED HM: Healthy Diet and Physical Activity: Counseling Adults with High Risk of CVD Given: Urged to walk at least 5 times/week and eat a more plant based diet. DASH diet(Dietary Approaches to Stop High BP Fruits/vegetables/whole grains/Low fat dairy Limit saturated fats/total fat and sodium Recommend foods high in calcium and potassium Vitamin D supplement PROVIDED HM: High Blood Pressure in Adults: Screening Given: / ORDERED/ADVISED: - CBC with diff (automated) ICD Codes (N93.8, Z98.84, D50.9, Z00.00, E06.9) - CMP (Complete Metabolic Panel) ICD Codes (N93.8, Z98.84, D50.9, Z00.00, E06.9) - Lipid Panel ICD Codes (N93.8, Z98.84, D50.9, Z00.00, E06.9) - TSH ICD Codes (N93.8, Z98.84, D50.9, Z00.00, E06.9) - Blood Draw ICD Codes (N93.8, Z98.84, D50.9, Z00.00, E06.9) 07/13/2015 10:50:48 Plan printed and provided to patient: ORDERED/ADVISED: - Domenico Morton (Pulmonology) (sleep studies) ICD Codes (G47.33, I48.0) ORDERED/ADVISED: - Zoila David (Cardiology) (paroxysmal afib) ICD Codes (G47.33, I48.0) ORDERED/ADVISED: - Anti thyroid Antibodies ICD Codes (G47.33, I48.0, E06.9) - Free T4 ICD Codes (G47.33, I48.0, E06.9) - TSH ICD Codes (G47.33, I48.0, E06.9) Should go to ED if recurrence that doesn't resolve in 12 hours. 07/06/2015 11:31:00 Plan printed and provided to patient: PRESCRIBE: hydrochlorothiazide 25 mg oral tablet, one po daily with a bananna for edema, # 30, RF: 3. (Transmitted by Araseli Andrade DO) check out the addictocarb diet consider uterine ablation if heavy bleeding persists. PROVIDED: Patient Education (07/06/2015) 04/06/2015 10:31:13 Plan printed and provided to patient: You need to take B12 otc and start taking 2000IU of vitamin D now. She is quite anemic Microcytic and hypochromic suggesting iron deficiency anemia. Pool walking would be the best excercise. [email or web address] ORDERED/ADVISED: - Obdulio Green (Surgery) (referral for gastric bypass) ORDERED/ADVISED: - EKG ICD Codes (724.5, 280.9, 278.01) ORDERED/ADVISED: - Moo Vogel (Pulmonology) (sleep studies) ICD Codes (278.01) ORDERED/ADVISED: - Custom Order (Nocturnal Oximetry) ICD Codes (278.01) ORDERED/ADVISED: - Nocturnal oxygen saturation 03/09/2015 08:58:05 Plan printed and provided to patient: ADDED Current Meds: advil , # 0, PROVIDED HM: Counseling to Prevent Tobacco Use and Tobacco-Caused Disease in Adults and Women Given: NI PROVIDED HM: Screening for High Blood Pressure in Adults Given: 140/96 ORDERED/ADVISED: - CMP (Complete Metabolic Panel) ICD Codes (278.01, V70.0) - B12 level, Folate, Thiamine ICD Codes (278.01, V70.0) - Lipid Panel ICD Codes (278.01, V70.0) - Magnesium Level ICD Codes (278.01, V70.0) - TSH ICD Codes (278.01, V70.0) - Urinalysis ICD Codes (278.01, V70.0) - CBC with diff (automated) (back pain) ICD Codes (278.01, V70.0) ORDERED/ADVISED: - Screening Mammogram ICD Codes (V70.0) Frequent bp checks. Never high when giving blood. VITAL SIGNS Encounter Height (in) We ight (lb) BMI (kg/m2) BP Sys (mmHg) BP Fritz (mmHg) Heart Rate (/min) O2 % BldC Oximetry O2 % BldC Oximetry (on O2) Body Temp erature Respiratory Rate (/min) Head Circumf OFC by Tape measure 02/24/2020 09:35:47 67 2 22 34.8 146 90 71 99 -- 98.6 F -- -- 10/23/2019 08:46:23 67 2 05 32.1 130 76 76 97 -- -- -- -- 12/04/2017 08:35:21 67 2 14 33.5 132 80 67 96 -- -- -- -- 10/10/2016 09:02:30 67 1 99 31.2 104 70 70 98 -- -- -- -- 07/13/2015 10:50:48 68 3 08 46.8 110 70 85 97 -- -- -- -- 07/06/2015 11:31:00 68 3 08 46.8 142 96 97 97 -- -- -- -- 04/06/2015 10:31:13 68 3 13 47.6 130 86 78 98 -- -- -- -- 03/09/2015 08:58:05 68.75 303 45.1 140 96 79 98 -- -- -- -- GOALS No Goals Information. HEALTH CONCERNS No health concerns information is available. MENTAL STATUS No Mental Status information.
--- OUTSIDE RECORDS SUMMARY | 2020-10-28 23:23 | CCD | Continuity of Care Document ---
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 Name Role Phone Alysha Breen MD AUTM Lakeland Araseli AUTM [phone] Angela Sanders MD AUTM [phone] Problems Active Problems Provider Date Paroxysmal atrial fibrillation Dmitri Kirby MD Onset: Electrocardiogram abnormal Dimtri Kirby MD Onset: 2019 Dietary management surveillance [...] 250mcg Tablets 1 by mouth every day Unknown 08/30/2020 Sucralfate 1gm Tablets 1 by mouth two times a day Unknown 08/30/2020 Atenolol 50mg Tablets 1 by mouth every day Unknown 08/30/2020 Pantoprazole Sodium 40mg Tablets D R [...] Note Liver Function Test/ Liver Hep 08/06/2020 [facility] - not interfaced (315)- - Ast/Sgot 29 15-37 Alt/SGPT 28 30-65 Alk Phos 179 High 50-136 Albumin 3.7 3.2-5.2 Total Bilirubin 0.3 0.0-1.0 Total Protein 8.2 6.4-8.2 A/G Ratio 0.8 Low 1.00-1.93 Laboratory test finding 08/06/2020 [facility] - not interf aced (315)- - Magnesium Level 1.9 1.8-2.4 Thyroid Stimulating Hormone 1.140 CBC without Differential 08/06/2020 [facility] - not inter faced (315)- - White Blood Count 6.2 4.0-10.0 Red Blood Count 4.97 4.00-5.40 Platelets 215 172-450 Hemoglobin 14.3 Hematocrit 44.1 Procedures Date Code Description Status 08/31/2020 49692 ECG 12-Lead Completed Medical Devices Description No [...] MD 08/31/2020 I48.0 Paroxysmal atrial fibrillation Jackie andres Kirby MD 08/31/2020 R01.1 Cardiac murmur, unspecified Vin nargis Paty Kirby MD 08/31/2020 R60.0 Localized edema Dmitri Kirby MD 08/31/2020 R94.31 Abnormal electrocardiogram [ECG] [EKG] Dmitri Kirby MD 08/31/2020 G47.33 Obstructive sleep apnea (adult) (pediatric) Dmitri Kirby MD 08/31/2020 Z68.36 Body mass index [BMI] 36.0-36.9, adult Dmitri Kirby MD 08/31/2020 Z71.3 Dietary counseling and surveilla nce Dmitir Kirby MD Plan of Treatment Future Appointment(s):* 11/23/2020 10:15 am - Dmitri Kirby MD at Main Office * 10/14/2020 3:30 pm - Holter/Event/Telemetry at Main Office * 10/02/2020 11:00 am [...] atrial fibrillation* New Orders:* Event Monitor, Scheduled: 10/14/20 * Recommendations:* This rhythm disturbance is associated with structural heart disease 90% of the time. I suspect her weight problem, obstructive sleep apnea, and excessive caffeine/alcohol intake may have all contributed. Currently in sinus rhythm. Not receiving any form of prophylaxis against thromboembolic event at this time because of her GI bleeding. Have recommended a 30 day event monitor to document her spontaneous rhythm. Have emphasized the importance of avoiding of caffeinated beverages, alcohol, nicotine, [id number] decongestants etc. Continues on combination digoxin and low- dose atenolol for the time being. * R01.1 [...] Mental Status Description No Information Available Referrals Description No Information Available
--- OUTSIDE RECORDS SUMMARY | 2020-10-28 23:23 | CCD ---
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 Araseli Andrade DO 08-24-2020 Atrial fibrillation [SNOMED-CT: 87398018] Dr. Araseli Andrade DO 08-24-2020 History of bariatric surgical procedure [SNOMED-CT: 373248913] Dr. Araseli Andrade DO 08-24-2020 Anemia [SNOMED-CT: 602172496] Dr. Jen Andrade DO 08-24-2020 Peptic ulcer [SNOMED-CT: 70358821] Penelope Andrade DO 08-24-2020 Abnormal cervical Papanicolaou smear [SNOMED-CT: 31950 8000] Dr. Araseli Andrade DO 02-24-2020 Routine general medical examination at a health care facility [ICD9: V70.0] Dr. Araseli Andrade DO 10-23-2019 Routine general medical examination at a health care facility [ICD9: V70.0] Dr. Araseli Andrade DO 12-04-2017 Routine general medical examination at a health care facility [ICD9: V70.0] Dr. Araseli Andrade DO 10-10-2016 Obstructive sleep apnea [SNOMED-CT: 30599218] Dr. Araseli Andrade DO 07-13-2015 Paroxysmal atrial fibrillation [SNOMED-CT: 968745276] Dr. Araseli Andrade, DO 07-13-2015 Thyroiditis [SNOMED-CT: 55246322] Dr Leah Andrade, DO 07-13-2015 Dysfunctional uterine bleeding [SNOMED-CT: 47827977] Dr. Araseli Andrade, DO 07-06-2015 Iron deficiency anemia [SNOMED-CT: 43520312] Dr. Araseli Andrade, DO 07-06-2015 Morbid obesity [SNOMED-CT: 256416804] Dr. Araseli Andrade, DO 07-06-2015 Edema [SNOMED-CT: 294584387] Dr. Sandy Andrade, DO 07-06-2015 Morbid obesity [SNOMED-CT: 621502762] Dr. Araseli Andrade, DO 04-06-2015 Chronic back pain [SNOMED-CT: 212407731] Dr. Araseli Andrade, DO 04-06-2015 Iron deficiency anemia [SNOMED-CT: 72551348] Dr. Araseli Andrade, DO 04-06-2015 Routine general [...] Generic Name Instructions Dosage Start Date Status atenolol 100 mg oral tablet, [RxNorm: 245580] atenolol one po daily 0 Active Carafate 1 g oral tablet, [RxNorm: 408484] sucralfate one po qid ac and hs 0 1 10/25/2019 Active pantoprazole 40 mg oral delayed release tablet, [RxNorm: 395426] pantoprazole one po bid 0 08/24/2020 Active Bariatric multi vits and minerals Unknown 0 12/04/2017 Active INSURANCE PROVIDERS Payer Name Policy Type P olicy ID Covered [employer] ID Policy [facility] [id number] DENEEN RAMOS ASSESSMENTS # Upper gastrointestinal hemorrhage (K92.89):# Atrial fibrillation (I48.91):# History of bariatric surgical procedure (Z98.84): # Anemia (D64.9):# Peptic ulcer (K27.9): PROBLEMS Problem Problem Status D ate Started Date Resolved Date Inactivated Abnormal cervical Papanicolaou smear [SNOMED-CT: 56987 8000] Active 02-24-2020 NA NA Morbid obesity [SNOMED-CT: 259096588] Active 03-09-2015 NA NA Routine general medical examination at a health care facility [ICD9: V70.0] Active 03-09-2015 NA NA Chronic back pain [SNOMED-CT: 583528693] Active 04-06-2015 NA NA Iron deficiency anemia [SNOMED-CT: 91735543] Active 04-06-2015 NA NA Gastro-esophageal reflux disease [SNOMED-CT: 348026265 ] Active 10-23-2019 NA NA Breast screening, unspecified [ICD10: Z12.39] Active 10-23-2019 NA NA Upper gastrointestinal hemorrhage [SNOMED-CT: 18009295 ] Active 08-24-2020 NA NA Atrial fibrillation [SNOMED-CT: 51172508] Active 08-24-2020 NA NA Anemia [SNOMED-CT: 060025761] Active 08-24-2020 NA NA Peptic ulcer [SNOMED-CT: 71329508] Active 08-24-2020 NA NA Dysfunctional uterine bleeding [SNOMED-CT: 92608482] Active 07-06-2015 NA NA Edema [SNOMED-CT: 550811512] Active 07-06-2015 NA NA Thyroiditis [SNOMED-CT: 13046370] Active 07-13-2015 NA NA Obstructive sleep apnea [SNOMED-CT: 59564801] Active 07-13-2015 NA NA History of bariatric surgical procedure [SNOMED-CT: 499729104] Active 10-10-2016 NA NA Paroxysmal atrial fibrillation [SNOMED-CT: 554431700] Active 07-13-2015 NA NA Dysuria-frequency syndrome [SNOMED-CT: 6529639] Active 02-01-2016 NA NA PROCEDURES Procedure Date CPT Code Procedure 08/24/2020 12:45:52 25924 Office or other outpatient visit for the [...] high severity. Physicians typically spend 40 minutes cutr-lm-osjh with the patient and/or family. 08/24/2020 12:45:52 [id number] Eligible clinician attests to documenting in the medical record they obtained, updated, or reviewed the patient's current medications 04/03/2020 09:02:10 3017F Colorectal cancer screening results documented and reviewed (PV) 02/24/2020 09:35:47 67474 Office or other outpatient visit for the [...] high severity. Physicians typically spend 25 minutes cbqr-ag-xcdp with the patient and/or family. 10/23/2019 08:46:23 63269 Periodic comprehensive preventive medicine reevaluation and management [...] results documented and reviewed (PV) 12/04/2017 08:35:21 64500 Collection of venous blood by venipuncture 12/04/2017 08:35:21 85114 Periodic comprehensive preventive medicine reevaluation and management [...] reviewed the patient's current medications 10/10/2016 09:02:30 27149 Collection of venous blood by venipuncture 10/10/2016 09:02:30 83144 Periodic comprehensive preventive medicine reevaluation and management of an individual including an age and gender appropriate history, examination, counseling/anticipatory guidance/risk factor reduction interventions, and the ordering of laboratory/diagnostic procedures, established patient; 40-64 years 07/13/2015 10:50:48 91508 Office or other outpatient visit for the [...] moderate severity. Physicians typically spend 15 minutes isyj-cj-owrk with the patient and/or family. 07/06/2015 11:31:00 57196 Office or other outpatient visit for the [...] moderate severity. Physicians typically spend 15 minutes yqxk-pu-hgek with the patient and/or family. 04/06/2015 10:31:13 18457 Office or other outpatient visit for the [...] high severity. Physicians typically spend 25 minutes pwmo-on-nwub with the patient and/or family. 03/09/2015 08:58:05 92447 Initial comprehensive preventive medicine evaluation and management of an individual including an age and gender appropriate history, examination, counseling/anticipatory guidance/risk factor reduction interventions, and the ordering of laboratory/diagnostic procedures, new patient; 40-64 years REASON FOR REFERRAL No Reason for Referral information available. RESULTS Result Type Result Value Relevant Reference Range Interpretation Date N/A The following update was received on 03-Mar-2020 9:44 Addendum 1 Entered: 03/03/2020-0943 The HPV test is negative for high risk types, test performed at [facility] SPECIMEN ADEQUACY: Satisfactory for evaluation [address] [place] [id number]. 03/03/2020942 Addendum Signed____ MEDARDO SALAZAR (ASC) 03/03/2020943 CATEGORIZATION: Epithelial cell abnormalities: Infection: Reactive [...] smear is interpreted as within normal limits. 02/25/20201042 The cervical PAP smear is a screening test. Both false positive and Signed MEDARDO SALAZAR (ASCP) 02/25/2020 1012 (Prelim) false negative results occur. A negative PAP smear does not preclude Signed Mckenna Glez M.D. 02/25/20201042 dysplasia or malignancy. Clinical correlation is required in every case. Further diagnostic procedures may be clinically indicated even if a PAP smear is interpreted as within normal limits. 02/25/20201042 Signed MEDARDO SALAZAR (ASCP) 02/25/2020 1012 (Prelim) Signed Mckenna Glez M.D. 02/25/20203 N/A N/A 03/03/2020 09:44 :00 HPV APTIMA Negative Neg ative No Flag 03/02/2020 15:09:00 N/A The following update was received on 05-Nov-2019 7:33 Addendum 1 Entered: 11/05/2019-0732 SPECIMEN ADEQUACY: Satisfactory for evaluation The HPV test is negative for high risk types, test performed at [address] [address]. 11/05/2019 - 0732 CATEGORIZATION: Epithelial cell abnormalities: Addendum Signed____ MEDARDO SALAZAR CT (ASCP) 11/05/2019 0733 Infection: Reactive Changes: Atrophy with inflammation (atrophic [...] smear is interpreted as within normal limits. 10/25/2019 - [address] (ASCP) 10/24/2019951 (Prelim) The cervical PAP smear is a screening test. Both false positive and Signed Lavelle Epstein M.D. 10/25/20191008 false negative results occur. A negative PAP smear does not preclude dysplasia or malignancy. Clinical correlation is required in every case. Further diagnostic procedures may be clinically indicated even if a PAP smear is interpreted as within normal limits. 10/25/2019 - [address] (ASCP) 10/24/2019951 (Prelim) Signed Lavelle Epstein M.D. 10/25/2019 1009 [...] smear is interpreted as within normal limits. 10/11/2016630 Signed MARLEN CARVAJAL(ASCP) 10/11/2016721 N/A N/A 10/11/2016 07:22 :00 WHITE BLOOD [...] 03/30/2015 10:30:00 HGBA1C 5.3 % 4.8-6.0 No Flag 03/30/2015 10:28:00 HGBA1C 5.3 % 4.8-6.0 No Flag 03/30/2015 10:28:00 HGBA1C 5.3 % 4.8-6.0 No Flag 03/30/2015 10:28:00 ESTIMATED AVERAGE GLUCOSE 105.4 mg/dL -- No [facility] 03/30/2015 10:28:00 ESTIMATED AVERAGE GLUCOSE 105.4 mg/dL -- No [facility] 03/30/2015 10:28:00 ESTIMATED AVERAGE GLUCOSE 105.4 mg/dL -- No [facility] 03/30/2015 10:28:00 WHITE BLOOD COUNT 5.6 K/mm3 4.0-10.0 No Flag 03/30/2015 10:01:00 RED BLOOD COUNT 4.65 M/mm3 4.00-5.50 No [facility] 03/30/2015 10:01:00 HEMOGLOBIN 11.7 gm/dL 12 .0-16.0 L 03/30/2015 10:01:00 HEMATOCRIT 36.5 % 36.0-4 8.8 No [facility] 03/30/2015 10:01:00 MEAN CELL VOLUME 78.5 fl 80-96 L 03/30/2015 10:01:00 MEAN CORPUSCULAR HEMOGLOB 25.2 pg 27.0-31.0 L 03/30/2015 10:01:00 MEAN CORPUSCULAR HGB CONC 32.1 g/dl 32.0- 36.0 No [facility] 03/30/2015 10:01:00 RED CELL DISTRIBUTION WID 16.4 % 10.0-14.5 H 03/30/2015 10:01:00 PLATELET COUNT 191 K/mm3 172-450 No [facility] 03/30/2015 10:01:00 MEAN PLATELET VOLUME 9.9 fl 9.0-13.0 No [facility] 03/30/2015 10:01:00 GRAN % 61.5 % 50-80.0 [...] WHITE BLOOD COUNT 5.6 K/mm3 4.0-10.0 No Flag 03/30/2015 10:01:00 RED BLOOD COUNT 4.65 M/mm3 4.00-5.50 No [facility] 03/30/2015 10:01:00 HEMOGLOBIN 11.7 gm/dL 12 .0-16.0 L 03/30/2015 10:01:00 HEMATOCRIT 36.5 % 36.0-4 8.8 No [facility] 03/30/2015 10:01:00 MEAN CELL VOLUME 78.5 fl 80-96 L 03/30/2015 10:01:00 MEAN CORPUSCULAR HEMOGLOB 25.2 pg 27.0-31.0 L 03/30/2015 10:01:00 MEAN CORPUSCULAR HGB CONC 32.1 g/dl 32.0- 36.0 No Flag 03/30/2015 10:01:00 RED CELL DISTRIBUTION WID 16.4 % 10.0-14.5 H 03/30/2015 10:01:00 PLATELET COUNT 191 K/mm3 172-450 No [facility] 03/30/2015 10:01:00 MEAN PLATELET VOLUME 9.9 fl [...] WHITE BLOOD COUNT 5.6 K/mm3 4.0-10.0 No Flag 03/30/2015 10:01:00 RED BLOOD COUNT 4.65 M/mm3 4.00-5.50 No Flag 03/30/2015 10:01:00 HEMOGLOBIN 11.7 gm/dL 12 .0-16.0 L 03/30/2015 10:01:00 HEMATOCRIT 36.5 % 36.0-4 8.8 No [facility] 03/30/2015 10:01:00 MEAN CELL VOLUME 78.5 fl [...] Description Dates Observed Smoking Status Former smoker, [ALEYDA D-CT: 6302448], 0.50 pk yrs/24.00 yrs quit 03/09/2015 - 03/09/2015 TREATMENT PLAN Encounter Date [facility] 08/24/2020 12:45:52 PRESCRIBE: atenolol 100 mg oral [...] fasting" also "the longevity solution" by Jona Boyd MD You can download a [facility] gerald to your computer and get these books on [email or web address]. Watch the movie "the magic pill" documentary on [email or web address] Also [employer] movie call " Fat" the documentary Google Jona Boyd Podcast 50 [employer] and watch it (1 hr) You can also find many you tube videos by Dr. Boyd. Ask to join the facebook group called [...] fasting" also "the longevity solution" by Jona Boyd MD You can download a [facility] gerald to your computer and get these books on [email or web address]. Watch the movie "the magic pill" documentary on [email or web address] Also [employer] movie call " Fat" the documentary Google Jona Boyd Podcast 50 [employer] and watch it (1 hr) You can also find many you tube videos by Dr. Boyd. Ask to join the facebook group called [...] fasting" also "the longevity solution" by Jona Boyd MD You can download a [facility] gerald to your computer and get these books on [email or web address]. Watch the movie "the magic pill" documentary on [email or web address] Also [employer] call " Fat" the documentary Google Jona Boyd Podcast 50 [employer] and watch it (1 hr) You can also find many you tube videos by Dr. Boyd. Ask to join the facebook group called jona tavrea obesity code support group. PROVIDED HM: High [...] Z98.84, D50.9, Z00.00) ORDERED/ADVISED: - Ely Pearl (MASONRY INSTALLER) (? ablation) ICD Codes (N93.8, Z98.84, D50.9, [...] Z98.84, D50.9, Z00.00) ORDERED/ADVISED: - Ely Pearl (MASONRY INSTALLER) (? ablation) ICD Codes (N93.8, Z98.84, D50.9, [...] Z98.84, D50.9, Z00.00) ORDERED/ADVISED: - Ely Pearl (MASONRY INSTALLER) (? ablation) ICD Codes (N93.8, Z98.84, D50.9, [...] High Blood Pressure in Adults: Screening Given: 104/70 ORDERED/ADVISED: - CBC with diff (automated) ICD [...] High Blood Pressure in Adults: Screening Given: /70 ORDERED/ADVISED: - CBC with diff (automated) ICD [...] Pool walking would be the best excercise. [email or web address] ORDERED/ADVISED: - Obdulio Green (Surgery) (referral for [...]
--- OUTSIDE RECORDS SUMMARY | 2020-10-28 23:25 | CCD ---
Author Author [facility] Organization [facility] Address Unknown Phone Unavailable Care Team Providers Care Accountant Machine Processing Name Role Phone CLAUDIA, A PAU DO Unavailable Unavailable CLAUDIA, A PAU DO Unavailable Unavailable CLAUDIA, A PAU DO Unavailable Unavailable CLAUDIA, A PAU DO Unavailable Unavailable CLAUDIA, A PAU DO Unavailable Unavailable CLAUDIA, A PAU DO Unavailable Unavailable CLAUDIA, A PAU DO Unavailable Unavailable CLAUDIA, A PAU DO Unavailable Unavailable CLAUDIA, A PAU DO Unavailable Unavailable CLAUDIA, A PAU DO Unavailable Unavailable CLAUDIA, A PAU DO Unavailable Unavailable CLAUDIA, A PAU DO Unavailable Unavailable CLAUDIA, A PAU DO Unavailable Unavailable CLAUDIA, A APU DO Unavailable Unavailable CLAUDIA, A PAU DO Unavailable Unavailable CLAUDIA, A PAU DO Unavailable Unavailable CLAUDIA, A PAU DO Unavailable Unavailable LCAUDIA, A PAU DO Unavailable Unavailable CLAUDIA, A PAU DO Unavailable Unavailable CLAUDIA, A PAU DO Unavailable Unavailable CLAUDIA, A PAU DO Unavailable Unavailable CLAUDIA, A PAU DO Unavailable Unavailable CLAUDIA, A PAU DO Unavailable Unavailable CLAUDIA, A PAU DO Unavailable Unavailable CLAUDIA, A PAU DO Unavailable Unavailable CLAUDIA, A PAU DO Unavailable Unavailable CLAUDIA, A PAU DO Unavailable Unavailable CLAUDIA, A PAU DO Unavailable Unavailable CLAUDIA, A PAU DO Unavailable Unavailable CLAUDIA, A PAU DO Unavailable Unavailable CLAUDIA, A PAU DO Unavailable Unavailable CLAUDIA, A PAU DO Unavailable Unavailable CLAUDIA, A PAU DO Unavailable Unavailable CLAUDIA, A PAU DO Unavailable Unavailable CLAUDIA, A PAU DO Unavailable Unavailable CLAUDIA, A PAU DO Unavailable Unavailable CLAUDIA, A PAU DO Unavailable Unavailable CLAUDIA, A PAU DO Unavailable Unavailable CLAUDIA, A PAU DO Unavailable Unavailable CLAUDIA, A PAU DO Unavailable Unavailable CLAUDIA, A PAU DO Unavailable Unavailable CLAUDIA, A PAU DO Unavailable Unavailable CLAUDIA, A PAU DO Unavailable Unavailable CLAUDIA, A PAU DO Unavailable Unavailable CLAUDIA, A PAU DO Unavailable Unavailable CLAUDIA, A PAU DO Unavailable Unavailable CLAUDIA, A PAU DO Unavailable Unavailable CLAUDIA, A PAU DO Unavailable Unavailable CLAUDIA, A PAU DO Unavailable Unavailable CLAUDIA, A PAU DO Unavailable Unavailable CLAUDIA, A PAU DO Unavailable Unavailable CLAUDIA, A PAU DO Unavailable Unavailable CLAUDIA, A PAU DO Unavailable Unavailable CLAUDIA, A PAU DO Unavailable Unavailable CLAUDIA, A PAU DO Unavailable Unavailable CLAUDIA, A PAU DO Unavailable Unavailable CLAUDIA, A PAU DO Unavailable Unavailable CLAUDIA, A PAU DO Unavailable Unavailable CLAUDIA, A PAU DO Unavailable Unavailable CLAUDIA, A PAU DO Unavailable Unavailable CLAUDIA, A PAU DO Unavailable Unavailable CLAUDIA, A PAU DO Unavailable Unavailable CLAUDIA, A PAU DO Unavailable Unavailable CLAUDIA, A PAU DO Unavailable Unavailable Paty ESPINAL MD Unavailable Unavailable Paty ESPINAL MD Unavailable Unavailable Paty ESPINAL MD Unavailable Unavailable Paty ESPINAL MD Unavailable Unavailable Paty ESPINAL MD Unavailable Unavailable Paty ESPINAL MD Unavailable Unavailable Paty ESPINAL MD Unavailable Unavailable Paty ESPINAL MD Unavailable Unavailable Paty ESPINAL MD Unavailable Unavailable Paty ESPINAL MD Unavailable Unavailable ESPINALPaty Love MD Unavailable Unavailable Paty ESPINAL MD Unavailable Unavailable ESPINAL E LADONNA NAQVI Unavailable Unavailable ESPINAL, E LADONNA NAQVI Unavailable Unavailable ESPINAL, E LADONNA NAQVI Unavailable Unavailable ESPINAL, E LADONNA NAQVI Unavailable Unavailable ESPINAL, E LADONNA NAQVI Unavailable Unavailable ESPINAL, E LADONNA NAQVI Unavailable Unavailable ESPINAL, E LADONNA NAQVI Unavailable Unavailable ESPINAL, E LADONNA NAQVI Unavailable Unavailable ESPINAL, E LADONNA NAQVI Unavailable Unavailable ESPINAL, E LADONNA NAQVI Unavailable Unavailable ESPINAL, E LADONNA NAQVI Unavailable Unavailable ESPINAL, E LADONNA NAQVI Unavailable Unavailable ESPINAL, E LADONNA NAQVI Unavailable Unavailable ESPINAL, E LADONNA NAQVI Unavailable Unavailable ESPINAL, E LADONNA NAQVI Unavailable Unavailable ESPINAL, E LADONNA NAQVI Unavailable Unavailable ESPINAL, E LADONNA NAQVI Unavailable Unavailable ESPINAL, E LADONNA NAQVI Unavailable Unavailable ESPINAL, E LADONNA NAQVI Unavailable Unavailable ESPINAL, E LADONNA NAQVI Unavailable Unavailable ESPINAL, E LADONNA NAQVI Unavailable Unavailable ESPINAL, E LADONNA NAQVI Unavailable Unavailable ESPINAL, E LADONNA NAQVI Unavailable Unavailable ESPINAL, E LAODNNA NAQVI Unavailable Unavailable ESPINAL, E LADONNA NAQVI Unavailable Unavailable ESPINAL, E LADONNA NAQVI Unavailable Unavailable ESPINAL, E LADONNA NAQVI Unavailable Unavailable ESPINAL, E LADONNA NAQVI Unavailable Unavailable ESPINAL, E LADONNA NAQVI Unavailable Unavailable ESPINAL, E LADONNA NAQVI Unavailable Unavailable ESPINAL, E LADONNA NAQVI Unavailable Unavailable ESPINAL, E LADONNA NAQVI Unavailable Unavailable ESPINAL, E LADONNA NAQVI Unavailable Unavailable ESPINAL, E LADONNA NAQVI Unavailable Unavailable ESPINAL, E LADONNA NAQVI Unavailable Unavailable ESPINAL, E LADONNA NAQVI Unavailable Unavailable ESPINAL, E LADONNA NAQVI Unavailable Unavailable ESPINAL, E LADONNA NAQVI Unavailable Unavailable ESPINAL, E LADONNA NAQVI Unavailable Unavailable ESPINAL, E LADONNA NAQVI Unavailable Unavailable ESPINAL, E LADONNA NAQVI Unavailable Unavailable ESPINAL, E LADONNA NAQVI Unavailable Unavailable ESPINAL, E LADONNA NAQVI Unavailable Unavailable ESPINAL, E LADONNA NAQVI Unavailable Unavailable ESPINAL, E LADONNA NAQVI Unavailable Unavailable CLAUDIA, A PAU DO Unavailable Unavailable CLAUDIA, A PAU DO Unavailable Unavailable CLAUDIA, A PAU DO Unavailable Unavailable CLAUDIA, A PAU DO Unavailable Unavailable CLAUDIA, A PAU DO Unavailable Unavailable CLAUDIA, A PAU DO Unavailable Unavailable CLAUDIA, A PAU DO Unavailable Unavailable CLAUDIA, A PAU DO Unavailable Unavailable CLAUDIA, A PAU DO Unavailable Unavailable CLAUDIA, A PAU DO Unavailable Unavailable CLAUDIA, A PAU DO Unavailable Unavailable CLAUDIA, A PAU DO Unavailable Unavailable CLAUDIA, A PAU DO Unavailable Unavailable CLAUDIA, A PAU DO Unavailable Unavailable CLAUDIA, A PAU DO Unavailable Unavailable CLAUDIA, A PAU DO Unavailable Unavailable CLAUDIA, A PAU DO Unavailable Unavailable CLAUDIA, A PAU DO Unavailable Unavailable CLAUDIA, A PAU DO Unavailable Unavailable CALUDIA, A PAU DO Unavailable Unavailable CLAUDIA, A PAU DO Unavailable Unavailable CLAUDIA, A PAU DO Unavailable Unavailable CLAUDIA, A PAU DO Unavailable Unavailable CLAUDIA, A PAU DO Unavailable Unavailable CLAUDIA, A PAU DO Unavailable Unavailable CLAUDIA, A PAU DO Unavailable Unavailable CLAUDIA, A PAU DO Unavailable Unavailable CLAUDIA, A PAU DO Unavailable Unavailable CLAUDIA, A PAU DO Unavailable Unavailable CLAUDIA, A PAU DO Unavailable Unavailable CLAUDIA, A PAU DO Unavailable Unavailable CLAUDIA, A PAU DO Unavailable Unavailable CLAUDIA, A PAU DO Unavailable Unavailable CLAUDIA, A PAU DO Unavailable Unavailable CLAUDIA, A PAU DO Unavailable Unavailable CLAUDIA, A PAU DO Unavailable Unavailable CLAUDIA, A PAU DO Unavailable Unavailable CLAUDIA, A PAU DO Unavailable Unavailable CLAUDIA, A PAU DO Unavailable Unavailable CLAUDIA, A PAU DO Unavailable Unavailable CLAUDIA, A PAU DO Unavailable Unavailable CLAUDIA, A PAU DO Unavailable Unavailable CLAUDIA, A PAU DO Unavailable Unavailable CLAUDIA, A PAU DO Unavailable Unavailable CLAUDIA, A PAU DO Unavailable Unavailable CLAUDIA, A PAU DO Unavailable Unavailable CLAUDIA, A PAU DO Unavailable Unavailable CLAUDIA, A PAU DO Unavailable Unavailable CLAUDIA, A PAU DO Unavailable Unavailable CLAUDIA, A PAU DO Unavailable Unavailable CLAUDIA, A PAU DO Unavailable Unavailable CLAUDIA, A PAU DO Unavailable Unavailable CLAUDIA, A PAU DO Unavailable Unavailable CLAUDIA, A PAU DO Unavailable Unavailable CLAUDIA, A PAU DO Unavailable Unavailable CLAUDIA, A PAU DO Unavailable Unavailable CLAUDIA, A PAU DO Unavailable Unavailable CLAUDIA, A PAU DO Unavailable Unavailable CLAUDIA, A PAU DO Unavailable Unavailable CLAUDIA, A PAU DO Unavailable Unavailable CLAUDIA, A PAU DO Unavailable Unavailable CLAUDIA, A PAU DO Unavailable Unavailable LCAUDIA, A PAU DO Unavailable Unavailable CLAUDIA, A PAU DO Unavailable Unavailable Paty ESPINAL MD Unavailable Unavailable Paty ESPINAL MD Unavailable Unavailable Paty ESPINAL MD Unavailable Unavailable Paty ESPINAL MD Unavailable Unavailable Paty ESPINAL MD Unavailable Unavailable Paty ESPINAL MD Unavailable Unavailable Paty ESPINAL MD Unavailable Unavailable Paty ESPINAL MD Unavailable Unavailable ESPINALPaty MD Unavailable Unavailable ESPINAL, Paty DOUGHERTY MD Unavailable Unavailable ESPINAL, E LADONNA NAQVI Unavailable Unavailable ESPINAL, E LADONNA NAQVI Unavailable Unavailable ESPINAL, E LADONNA NAQVI Unavailable Unavailable ESPINAL, E LADONNA NAQVI Unavailable Unavailable ESPINAL, E LADONNA NAQVI Unavailable Unavailable ESPINAL, E LADONNA NAQVI Unavailable Unavailable ESPINAL, E LADONNA NAQVI Unavailable Unavailable ESPINAL, E LADONNA NAQVI Unavailable Unavailable ESPINAL, E LADONNA NAQVI Unavailable Unavailable ESPINAL, E LADONNA NAQVI Unavailable Unavailable ESPINAL, E LADONNA NAQVI Unavailable Unavailable ESPINAL, E LADONNA NAQVI Unavailable Unavailable ESPINAL, E LADONNA NAQVI Unavailable Unavailable ESPINAL, Paty DOUGHERTY MD Unavailable Unavailable ESPINAL, E LADONNA NAQVI Unavailable Unavailable ESPINAL, E LADONNA NAQVI Unavailable Unavailable ESPINAL, E LADONNA NAQVI Unavailable Unavailable ESPINAL, E LADONNA NAQVI Unavailable Unavailable ESPINAL, E LADONNA NAQVI Unavailable Unavailable ESPINAL, E LADONNA NAQVI Unavailable Unavailable ESPINAL, E LADONNA NAQVI Unavailable Unavailable ESPINAL, E LADONNA NAQVI Unavailable Unavailable ESPINAL, E LADONNA NAQVI Unavailable Unavailable ESPINAL, E LADONNA NAQVI Unavailable Unavailable ESPINAL, E LADONNA NAQVI Unavailable Unavailable ESPINAL, E LADONNA NAQVI Unavailable Unavailable ESPINAL, E LADONNA NAQVI Unavailable Unavailable ESPINAL, E LADONNA NAQVI Unavailable Unavailable ESPINAL, E LADONNA NAQVI Unavailable Unavailable ESPINAL, E LADONNA NAQVI Unavailable Unavailable ESPINAL, E LADONNA NAQVI Unavailable Unavailable ESPINAL, E LADONNA NAQVI Unavailable Unavailable ESPINAL, E LADONNA NAQVI Unavailable Unavailable ESPINAL, E LADONNA NAQVI Unavailable Unavailable ESPINAL, E LADONNA NAQVI Unavailable Unavailable ESPINAL, E LADONNA NAQVI Unavailable Unavailable ESPINAL, E LADONNA NAQVI Unavailable Unavailable ESPINAL, E LADONNA NAQVI Unavailable Unavailable ESPINAL, E LADONNA NAQVI Unavailable Unavailable ESPINAL, E LADONNA NAQVI Unavailable Unavailable ESPINAL, E LADONNA NAQVI Unavailable Unavailable ESPINAL, E LADONNA NAQVI Unavailable Unavailable ESPINAL, E LADONNA NAQVI Unavailable Unavailable ESPINAL, Paty DOUGHERTY MD Unavailable Unavailable ESPINAL, Paty DOUGHERTY MD Unavailable Unavailable ESPINAL, Paty DOUGHERTY MD Unavailable Unavailable ESPINAL, Paty DOUGHERTY MD Unavailable Unavailable BENTON (SINCERE), Og RUSSELL MD Unavailable Unavailab le BENTON (SINCERE), gO RUSSELL MD Unavailable Unavailab le [place] (SINCERE), Og RUSSELL MD Unavailable Unavailab le [place] (SINCERE), Og RUSSELL MD Unavailable Unavailab le [place] (SINCERE), Og RUSSELL MD Unavailable Unavailab le [place] (SINCERE), Og RUSSELL MD Unavailable Unavailab le [place] (SINCERE), Og RUSSELL MD Unavailable Unavailab le [place] (SINCERE), Og RUSSELL MD Unavailable Unavailab le [place] (SINCERE), Og RUSSELL MD Unavailable Unavailab le [place] (SINCERE), Og RUSSELL MD Unavailable Unavailab le [place] (SINCERE), Og RUSSELL MD Unavailable Unavailab le [place] (SINCERE), Og RUSSELL MD Unavailable Unavailab le [place] (SINCERE), Og RUSSELL MD Unavailable Unavailab le [place] (SINCERE), Og RUSSELL MD Unavailable Unavailab le [place] (SINCERE), Og RUSSELL MD Unavailable Unavailab le [place] (SINCERE), Og RUSSELL MD Unavailable Unavailab le [place] (SINCERE), Og RUSSELL MD Unavailable Unavailab le [place] (SINCERE), Og RUSSELL MD Unavailable Unavailab le [place] (SINCERE), Og RUSSELL MD Unavailable Unavailab le [place] (SINCERE), Og RUSSELL MD Unavailable Unavailab le [place] (SINCERE), Og RUSSELL MD Unavailable Unavailab le [place] (SINCERE), Og RUSSELL MD Unavailable Unavailab le [place] (SINCERE), Og RUSSELL MD Unavailable Unavailab le [place]ENT[place] (SINCERE), Og RUSSELL MD Unavailable Unavailab le [place] (SINCERE), Og RUSSELL MD Unavailable Unavailab le [place] (SINCERE), Og RUSSELL MD Unavailable Unavailab le [place]ENT[place] (SINCERE), Og RUSSELL MD Unavailable Unavailab le [place] (SINCERE), Og RUSSELL MD Unavailable Unavailab le [place] (SINCERE), Og RUSSELL MD Unavailable Unavailab le [place] (SINCERE), Og RUSSELL MD Unavailable Unavailab le [place] (SINCERE), Og RUSSELL MD Unavailable Unavailab le [place] (SINCERE), Og RUSSELL MD Unavailable Unavailab le [place] (SINCERE), Og RUSSELL MD Unavailable Unavailab le [place] (SINCERE), Og RUSSELL MD Unavailable Unavailab le [place] (SINCERE), Og RUSSELL MD Unavailable Unavailab le [place] (SINCERE), Og RUSSELL MD Unavailable Unavailab le [place] (SINCERE), Og RUSSELL MD Unavailable Unavailab le [place] (SINCERE), Og RUSSELL MD Unavailable Unavailab le [place] (SINCERE), Og RUSSELL MD Unavailable Unavailab le [place] (SINCERE), Og RUSSELL MD Unavailable Unavailab le [place] (SINCERE), Og RUSSELL MD Unavailable Unavailab le BENT[place] (SICNERE), Og RUSSELL MD Unavailable Unavailab le [place] (SINCERE), Og RUSSELL MD Unavailable Unavailab le [place] (SINCERE), Og RUSSELL MD Unavailable Unavailab le [place] (SINCERE), Og RUSSELL MD Unavailable Unavailab le [place] (SINCERE), Og RUSSELL MD Unavailable Unavailab le [place] (SINCERE), Og RUSSELL MD Unavailable Unavailab le [place] (SINCERE), Og RUSSELL MD Unavailable Unavailab le [place] (SINCERE), Og RUSSELL MD Unavailable Unavailab le [place] (SINCERE), Og RUSSELL MD Unavailable Unavailab le [place] (SINCERE), Og RUSSELL MD Unavailable Unavailab le [place] (SINCERE), Og RUSSELL MD Unavailable Unavailab le [place] (SINCERE), Og RUSSELL MD Unavailable Unavailab le [place] (SINCERE), gO RUSSELL MD Unavailable Unavailab le [place] (SINCERE), Og RUSSELL MD Unavailable Unavailab le [place] (SINCERE), Og RUSSELL MD Unavailable Unavailab le [place] (SINCERE), Og RUSSELL MD Unavailable Unavailab le [place] (SINCERE), Og RUSSELL MD Unavailable Unavailab le [place] (SINCERE), Og RUSSELL MD Unavailable Unavailab le [place] (SINCERE), Og RUSSELL MD Unavailable Unavailab le [place] (SINCERE), Og RUSSELL MD Unavailable Unavailab le [place] (SINCERE), Og RUSSELL MD Unavailable Unavailab le [place] (SINCERE), Og RUSSELL MD Unavailable Unavailab le [place] (SINCERE), Og RUSSELL MD Unavailable Unavailab le [place] (SINCERE), Og RUSSELL MD Unavailable Unavailab le [place] (SINCERE), Og RUSSELL MD Unavailable Unavailab le [place] (SINCERE), Og RUSSELL MD Unavailable Unavailab le [place] (SINCERE), Og RUSSELL MD Unavailable Unavailab le [place] (SINCERE), Og RUSSELL MD Unavailable Unavailab le [place] (SINCERE), Og RUSSELL MD Unavailable Unavailab le [place] (SINCERE), Og RUSSELL MD Unavailable Unavailab le [place] (SINCERE), Og RUSSELL MD Unavailable Unavailab le [place] (SINCERE), Og RUSSELL MD Unavailable Unavailab le [place] (SINCERE), Og RUSSELL MD Unavailable Unavailab le [place] (SINCERE), Og RUSSELL MD Unavailable Unavailab le [place] (SINCERE), Og RUSSELL MD Unavailable Unavailab le [place] (SINCERE), Og RUSSELL MD Unavailable Unavailab le [place] (SINCERE), Og RUSSELL MD Unavailable Unavailab le [place] (SINCERE), Og RUSSELL MD Unavailable Unavailab le [place] (SINCERE), Og RUSSELL MD Unavailable Unavailab le [place] (SINCERE), Og RUSSELL MD Unavailable Unavailab le [place] (SINCERE), Og RUSSELL MD Unavailable Unavailab le [place] (SINCERE), Og RUSSELL MD Unavailable Unavailab le [place] (SINCERE), Og RUSSELL MD Unavailable Unavailab le [place] (SINCERE), Og RUSSELL MD Unavailable Unavailab le [place] (SINCERE), Og RUSSELL MD Unavailable Unavailab le [place] (SINCERE), Og RUSSELL MD Unavailable Unavailab le [place] (SINCERE), Og RUSSELL MD Unavailable Unavailab le [place] (SINCERE), Og RUSSELL MD Unavailable Unavailab le [place] (SINCERE), Og RUSSELL MD Unavailable Unavailab le [place] (SINCERE), Og RUSSELL MD Unavailable Unavailab le [place] (SINCERE), Og RUSSELL MD Unavailable Unavailab le [place] (SINCERE), Og RUSSELL MD Unavailable Unavailab le RAJENDRA, BOOKER JULIUS PA Unavailable Unavailable RAJENDRA, BOOKER JULIUS PA Unavailable Unavailable RAJENDRA, BOOKER JULIUS PA Unavailable Unavailable RAJENDRA, BOOKER JULIUS PA Unavailable Unavailable RAJENDRA, BOOKER JULIUS PA Unavailable Unavailable RAJENDRA, BOOKER JULIUS PA Unavailable Unavailable RAJENDRA, BOOKER JULIUS PA Unavailable Unavailable RAJENDRA, BOOKER JULIUS PA Unavailable Unavailable RAJENDRA, BOOKER JULIUS PA Unavailable Unavailable RAJENDRA, BOOKER JULIUS PA Unavailable Unavailable RAJENDRA, BOOKER JULIUS PA Unavailable Unavailable RAJENDRA, BOOKER JULIUS PA Unavailable Unavailable RAJENDRA, BOOKER JULIUS PA Unavailable Unavailable RAJENDRA, BOOKER JULIUS PA Unavailable Unavailable RAJENDRA, BOOKER JULIUS PA Unavailable Unavailable RAJENDRA, BOOKER JULIUS PA Unavailable Unavailable RAJENDRA, BOOKER JULIUS PA Unavailable Unavailable RAJENDRA, BOOKER JULUIS PA Unavailable Unavailable RAJENDRA, BOOKER JULIUS PA Unavailable Unavailable RAJENDRA, BOOKER JULIUS PA Unavailable Unavailable RAJENDRA, BOOKER JULIUS PA Unavailable Unavailable Kate BENJAMIN MD Unavailable Unavailable Kate BENJAMIN MD Unavailable Unavailable Kate BENJAMIN MD Unavailable Unavailable Kate BENJAMIN MD Unavailable Unavailable Kate BENJAMIN MD Unavailable Unavailable Kate BENJAMIN MD Unavailable Unavailable SRIKANTH, S AYMAN MD Unavailable Unavailable SRIKANTH, S AYMAN MD Unavailable Unavailable SRIKANTH, S AYMAN MD Unavailable Unavailable SRIKANTH, S AYMAN MD Unavailable Unavailable SRIKANTH, S AYMAN MD Unavailable Unavailable SRIKANTH, S AYMAN MD Unavailable Unavailable SRIKANTH, S AYMAN MD Unavailable Unavailable SRIKANTH, S AYMAN MD Unavailable Unavailable SRIKANTH, S AYMAN MD Unavailable Unavailable SRIKANTH, S AYMAN MD Unavailable Unavailable SRIKANTH, S AYMAN MD Unavailable Unavailable SRIKANTH, S AYMAN MD Unavailable Unavailable SRIKANTH, S AYMAN MD Unavailable Unavailable SRIKANTH, S AYMAN MD Unavailable Unavailable SRIKANTH, S AYMAN MD Unavailable Unavailable SRIKANTH, S AYMAN MD Unavailable Unavailable SRIKANTH, S AYMAN MD Unavailable Unavailable SRIKANTH, S AYMAN MD Unavailable Unavailable SRIKANTH, S AYMAN MD Unavailable Unavailable SRIKANTH, S AYMAN MD Unavailable Unavailable SRIKANTH, S AYMAN MD Unavailable Unavailable SRIKANTH, S AYMAN MD Unavailable Unavailable SRIKANTH, S AYMAN MD Unavailable Unavailable SRIKANTH, S AYMAN MD Unavailable Unavailable SRIKANTH, S AYMAN MD Unavailable Unavailable SRIKANTH, S AYMAN MD Unavailable Unavailable SRIKANTH, S AYMAN MD Unavailable Unavailable SRIKANTH, S AYMAN MD Unavailable Unavailable SRIKANTH, S AYMAN MD Unavailable Unavailable SRIKANTH, S AYMAN MD Unavailable Unavailable SRIKANTH, S AYMAN MD Unavailable Unavailable SRIKANTH, S AYMAN MD Unavailable Unavailable SRIKANTH, S AYMAN MD Unavailable Unavailable SRIKANTH, S AYMAN MD Unavailable Unavailable SRIKANTH, S AYMAN MD Unavailable Unavailable SRIKANTH, S AYMAN MD Unavailable Unavailable SRIKANTH, S AYMAN MD Unavailable Unavailable SRIKANTH, S AYMAN MD Unavailable Unavailable SRIKANTH, S AYMAN MD Unavailable Unavailable SRIKANTH, S AYMAN MD Unavailable Unavailable SRIKANTH, S AYMAN MD Unavailable Unavailable SRIKANTH, S AYMAN MD Unavailable Unavailable SRIKANTH, S AYMAN MD Unavailable Unavailable SRIKANTH, S AYMAN MD Unavailable Unavailable SRIKANTH, S AYMAN MD Unavailable Unavailable SRIKANTH, S AYMAN MD Unavailable Unavailable SRIKANTH, S AYMAN MD Unavailable Unavailable SRIKANTH, S AYMAN MD Unavailable Unavailable SRIKANTH, S AYMAN MD Unavailable Unavailable SRIKANTH, S AYMAN MD Unavailable Unavailable SRIKANTH, S AYMAN MD Unavailable Unavailable SRIKANTH, S AYMAN MD Unavailable Unavailable SRIKANTH, S AYMAN MD Unavailable Unavailable SRIKANTH, S AYMAN MD Unavailable Unavailable SRIKANTH, S AYMAN MD Unavailable Unavailable SRIKANTH, S AYMAN MD Unavailable Unavailable SRIKANTH, S AYMAN MD Unavailable Unavailable SRIKANTH, S AYMAN MD Unavailable Unavailable SRIKANTH, S AYMAN MD Unavailable Unavailable SRIKANTH, S AYMAN MD Unavailable Unavailable SRIKANTH, S AYMAN MD Unavailable Unavailable SRIKANTH, S AYMAN MD Unavailable Unavailable SRIKANTH, S AYMAN MD Unavailable Unavailable SRIKANTH, S AYMAN MD Unavailable Unavailable SRIKANTH, S AYMAN MD Unavailable Unavailable SRIKANTH, S AYMAN MD Unavailable Unavailable SRIKANTH, S AYMAN MD Unavailable Unavailable SRIKANTH, S AYMAN MD Unavailable Unavailable SRIKANTH, S AYMAN MD Unavailable Unavailable SRIKANTH, S AYMAN MD Unavailable Unavailable SRIKANTH, S AYMAN MD Unavailable Unavailable SRIKANTH, S AYMAN MD Unavailable Unavailable SRIKANTH, S AYMAN MD Unavailable Unavailable SRIKANTH, S AYMAN MD Unavailable Unavailable SRIKANTH, S AYMAN MD Unavailable Unavailable SRIKANTH, S AYMAN MD Unavailable Unavailable Re-disclosure Warning The records that you are about to access may contain information from federally-assisted alcohol or drug abuse programs. If such information is present, then the following federally mandated warning applies: This information has been disclosed to you from records protected by federal confidentiality rules (42 CFR part 2). The federal rules prohibit you from making any further disclosure of this information unless further disclosure is expressly permitted by the written consent of the person to whom it pertains or as otherwise permitted by 42 CFR part 2. A general authorization for the release of medical or other information is NOT sufficient for this purpose. The Federal rules restrict any use of the information to criminally investigate or prosecute any alcohol or drug abuse patient.The records that you are about to access may contain highly sensitive health information, the redisclosure of which is protected by Article 27-F of the [facility] Public Health law. If you continue you may have access to information: Regarding HIV / AIDS; Provided by facilities licensed or operated by the [facility] Office of Mental Health; or Provided by the [facility] Office for People With Developmental Disabilities. If such information is present, then the following [facility] mandated warning applies: This information has been disclosed to you from confidential records which are protected by state law. State law prohibits you from making any further disclosure of this information without the specific written consent of the person to whom it pertains, or as otherwise permitted by law. Any unauthorized further disclosure in violation of state law may result in a fine or mcfp sentence or both. A general authorization for the release of medical or other information is NOT sufficient authorization for further disc losure. Allergies and Adverse Reactions Type Description Substance Reaction Status Data Source(s ) Propensity to adverse reactions PHENAZOPYRIDINE HCL Phenazopyrid ine Hcl Hives High Shortness Of Breath High Active [facility] High High Propensity to adverse reactions NITROFURANTOIN MACROCRYSTAL Nitrofurantoin Macrocrystal Shortness Of Breath High Hives High Active [facility] High High Family History Family Member Name Family Member Gender Family Member Status Date o f Status Description Data Source(s) Unknown Unknown Problem [facility] ([facility], ) Unknown Male Problem [facility] ([facility] Unknown Unknown Problem [facility] ([facility] Unknown Unknown Problem [facility] ([facility] Unknown Unknown Problem [facility] ([facility] Unknown Unknown Problem [facility] ([facility] Unknown Unknown Problem [facility] ([facility] Encounters Encounter Providers Location Date Indications Data Source(s ) Outpatient Attender: DESIRAE BENJAMIN MDAdmitter: DESIRAE ARTEAGA MD [id number] 09/29/2020 06:21:00 AM EST - 09/29/2020 11:03:00 AM EST [facility] Patient discharged. Attender: DREW SOTO) MDReferrer: Jackie ESPINAL MD 09/08/2020 08:20:12 PM EST [facility] Outpatient Attender: LADONNA ESPINAL MD Main Office 08/31/2020 10:15:00 AM EST [facility] ([facility] Outpatient Attender: PAU TAYLOR DOReferrer: PAU TAYLOR DO [facility] 08/26/2020 08:52:00 AM EST - 08/26/2020 08:52:00 AM EST [facility] Attender: DREW SOTO) MDReferrer: Jackie ESPINAL MD 08/11/2020 08:20:12 PM EST [facility] Attender: DREW SOTO) MDReferrer: N BRANDI CLAUDIA DO 08/11/2020 08:20:12 PM EST [facility] Attender: DREW SOTO) MDReferrer: N BRANDI CLAUDIA DO 08/11/2020 08:20:12 PM EST [facility] Attender: DREW SOTO) MDReferrer: N BRANDI CLAUDIA DO 05/12/2020 08:20:09 PM EDT [facility] Attender: DREW SOTO) MDReferrer: N BRANDI CLAUDIA DO 05/12/2020 08:20:09 PM EDT [facility] Attender: DREW SOTO) MDReferrer: N BRANDI CLAUDIA DO 05/12/2020 08:20:09 PM EDT [facility] Attender: DREW SOTO) MDReferrer: N BRANDI CLAUDIA DO 04/06/2020 08:20:07 PM EDT [facility] Attender: DREW SOTO) MDReferrer: N BRANDI CLAUDIA DO 03/27/2020 08:20:07 PM EDT [facility] Attender: DREW SOTO) MDReferrer: N BRANDI CLAUDIA DO 03/11/2020 08:20:07 PM EDT [facility] Attender: DREW SOTO) MDReferrer: Debbi STEVENSY CLAUDIA 02/04/2020 08:20:05 PM EDT [facility] Attender: DREW BENTON SOTO) MDReferrer: Debbi BRANDI TAYLOR DO 02/04/2020 08:20:05 PM EDT [facility] Attender: DREW BENTON SOTO) MDReferrer: Debbi STEVENSY CLAUDIA AMADOR 02/04/2020 08:20:05 PM EDT [facility] Attender: DREW BENTON SOTO) MDReferrer: Debbi STEVENSY CLAUDIA DO 02/04/2020 08:20:05 PM EDT [facility] Outpatient Attender: PAU TAYLOR DO 2017 01:00:00 PM EDT - 01/15/2018 01:00:00 PM [facility] Emergency Attender: JULIUS LANDA EMERGENCY ROOM-ER 08/17/2015 03:58:00 PM EST - 07/08/2015 09:37:00 AM [facility] Outpatient Attender: PAU TAYLOR DO 03/30/2015 07:23:00 P M [facility] Medications Medication Brand Name Start Date Product Form Dose Route Admi nistrative Instructions Pharmacy Instructions Status Indications Reaction Description Data Source(s) 90 mcg/actuation 10/26/2020 12:00:00 AM EST HFA aerosol inha ler 8 INHALE TWO PUFFS BY MOUTH FOUR TIMES A DAY NEEDED INHALE TWO PUFFS BY MOUTH FOUR TIMES A DAY NEEDED SOLD: 10/26/2020 [facility] normal saline flush 0.9 % injection 3 mL 90327-540-67 09/29/2020 02:00:00 PM EST 3 mL Intravenous active 3 mL , Intravenous, PROTOCOL, First dose on Mon09/29/20 at 1400, Pre-op
flush per protocol, D/C Main IV fluid if appropriate
[facility] Medication administered onsite sodium chloride 0.9% (NS) infusion 0941-6924-12 09/29/2020 10:00:00 AM EST 75 mL/h Intravenous active at 75 mL /hr, 75 mL/hr, Intravenous, Continuous, Starting Mon09/29/20 at 1000, For 2 hours, Post-op [facility] Medication administered onsite iopamidol (ISOVUE-370) 76 % [id number] 09/29/2020 09:01:43 AM EST active As needed, Starting Mon09/29/20 at 0901, Intra-Procedu re [facility] Medication administered onsite 1 ML heparin sodium, porcine 1000 UNT/ML Injection hep angelito (porcine) injection heparin (porcine) injection 09/29/2020 08:55:09 AM EST active As needed, Starting Mon09/29/20 at 0855, Intra-Procedure [facility] Medication administered onsite NITROGLYCERIN 0.4 MG/ML IV SOLN 7096-4780-03 09/29/2020 08:54:52 AM EST active As needed, Starting 09/29 at 0854, Intra-Procedure [facility] Medication administered onsite lidocaine 1 % injection [id number] 09/29/2020 08:52:02 AM EST active As needed, Starting Mon09/29/20 at 0852, Intra-Procedure [facility] Medication administered onsite 2 ML Midazolam 1 MG/ML Injection midazolam (VERSED) in jection midazolam (VERSED) injection 09/29/2020 08:51:55 AM EST active As needed, Starting Mon09/29/20 at 0851, Intra-Procedure [facility] Medication administered onsite fentaNYL Citrate (PF) (SUBLIMAZE) injection 0329-2672-12 09/29/2020 08:51:43 AM EST active As neede d, Starting Mon09/29/20 at 0851, Intra-Procedure [facility] Medication administered onsite normal saline flush 0.9 % injection 3 mL [id number] 09/29/2020 07:00:00 AM EST 3 mL Intravenous active 3 mL , Intravenous, Every 8 hours (scheduled), First dose on Mon09/29/20 at 0700, Pre-op
Rapid push positive pressure flushing shall be performed with a 10 cc normal saline syringe to check the PATENCY of a PIV site prior to any infusion therapy initiation unless resistance is met.
[facility] Medication administered onsite sodium chloride 0.9% (NS) infusion 0920-6389-60 09/29/2020 07:00:00 AM EST 100 mL/h Intravenous active at 100 m L/hr, 100 mL/hr, Intravenous, Continuous, Starting Mon09/29/20 at 0700, Pre-op
Start two hours prior to scheduled start time
[facility] Medication administered onsite Acetaminophen 325 MG Oral Tablet acetaminophen (TYLENO L) 325 MG tablet 650 mg acetaminophen (TYLENOL) 325 MG tablet 650 mg 09/29/2020 06:33:54 AM EST 650 mg Oral active 650 mg, Or al, Every 4 hours PRN, headaches, and non cardiac pain, Starting Mon09/29/20 at 0633, Pre-op
"Maximum dose of acetaminophen is 4,000 mg from all sources in 24 hours."
[facility] Medication administered onsite 75 mg 09/15/2020 12:00:00 AM EST tablet 30 TAKE ONE TABLET BY MOUTH EVERY DAY TAKE ONE TABLET BY MOUTH EVERY DAY SOLD: 10/23/2020 [facility] 75 mg 09/15/2020 12:00:00 AM EST tablet 14 TAKE ONE TABLET BY MOUTH EVERY DAY TAKE ONE TABLET BY MOUTH EVERY DAY SOLD: 09/15/2020 [facility] 1 gram 09/12/2020 12:00:00 AM EST tablet 120 TAKE ONE TABLET BY MOUTH FOUR TIMES A DAY TAKE ONE TABLET BY MOUTH FOUR TIMES A DAY SOLD: 10/23/2020 [facility] Atenolol 50 MG Oral Tablet ATENOLOL 09/12/2020 12:00:00 AM EST tablet 30 TAKE ONE TABLET BY MOUTH EVERY DAY TAKE ONE TABLET BY MOUTH EVERY DAY SOLD: 09/14/2020 [facility] pantoprazole 40 MG Delayed Release Oral Tablet PANTOPRAZOLE SODIUM 09/12/2020 12:00:00 AM EST tablet,delayed release (DR/EC) 30 T DIAN ONE TABLET BY MOUTH TWICE A DAY TAKE ONE TABLET BY MOUTH TWICE A DAY SOLD: 09/14/2020 [facility] pantoprazole 40 MG Delayed Release Oral Tablet PANTOPRAZOLE SODIUM 09/12/2020 12:00:00 AM EST tablet,delayed release (DR/EC) 30 T DIAN ONE TABLET BY MOUTH TWICE A DAY TAKE ONE TABLET BY MOUTH TWICE A DAY SOLD: 10/23/2020 [facility] pantoprazole 40 MG Delayed Release Oral Tablet PANTOPRAZOLE SODIUM 09/12/2020 12:00:00 AM EST tablet,delayed release (DR/EC) 30 T DIAN ONE TABLET BY MOUTH TWICE A DAY TAKE ONE TABLET BY MOUTH TWICE A DAY SOLD: 10/06/2020 [facility] 50 mg 09/12/2020 12:00:00 AM EST tablet 30 TAKE ONE TABLET BY MOUTH EVERY DAY TAKE ONE TABLET BY MOUTH EVERY DAY SOLD: 10/23/2020 [facility] 1 gram 09/12/2020 12:00:00 AM EST tablet 120 TAKE ONE TABLET BY MOUTH FOUR TIMES A DAY TAKE ONE TABLET BY MOUTH FOUR TIMES A DAY SOLD: 09/14/2020 [facility] 30 mg 09/08/2020 12:00:00 AM EST capsule,delayed release (DR/EC) 30 TAKE ONE CAPSULE BY MOUTH EVERY DAY TAKE ONE CAPSULE BY MOUTH EVERY DAY SOLD: 09/09/2020 [facility] 30 mg 09/08/2020 12:00:00 AM EST capsule,delayed release (DR/EC) 30 TAKE ONE CAPSULE BY MOUTH EVERY DAY TAKE ONE CAPSULE BY MOUTH EVERY DAY SOLD: 10/06/2020 [facility] 250 mcg (0.25 mg) 09/02/2020 12:00:00 AM EST tablet 30 TAKE ONE TABLET BY MOUTH EVERY DAY TAKE ONE TABLET BY MOUTH EVERY DAY SOLD: 09/07/2020 [facility] 250 mcg (0.25 mg) 09/02/2020 12:00:00 AM EST tablet 30 TAKE ONE TABLET BY MOUTH EVERY DAY TAKE ONE TABLET BY MOUTH EVERY DAY SOLD: 10/06/2020 [facility] Sucralfate 1000 MG Oral Tablet Sucralfate 08/30/2020 12:00:00 AM EST ORAL active [facility] ([facility]) Digoxin 0.25 MG Oral Tablet [Digox] Digox 08/30/2020 12:00:00 AM EST ORAL active [facility] ([facility]) pantoprazole 40 MG Delayed Release Oral Tablet Pantoprazole Sodium 08/30/2020 12:00:00 AM EST ORAL active M [facility] ([facility]) Atenolol 50 MG Oral Tablet Atenolol 08/30/2020 12:00:00 AM EST ORAL active [facility] ([facility]) pantoprazole 40 MG Delayed Release Oral Tablet PANTOPRAZOLE SODIUM 08/17/2020 12:00:00 AM EST tablet,delayed release (DR/EC) 60 T DIAN ONE TABLET BY MOUTH TWICE A DAY STOP OMEPRAZOLE TAKE ONE TABLET BY MOUTH TWICE A DAY STO P OMEPRAZOLE SOLD: 08/17/2020 [facility] Atenolol 50 MG Oral Tablet ATENOLOL 08/17/2020 12:00:00 AM EST tablet 30 TAKE ONE TABLET BY MOUTH EVERY DAY TAKE ONE TABLET BY MOUTH EVERY DAY SOLD: 08/17/2020 [facility] 1 gram 08/17/2020 12:00:00 AM EST tablet 120 TAKE 1 TABLET BY MOUTH BEFORE MEALS AND AT BEDTIME TAKE 1 TABLET BY MOUTH BEFORE MEALS AND AT BEDTIME [facility] 20 mg 08/14/2020 12:00:00 AM EST capsule,delayed release (DR/EC) 30 TAKE ONE CAPSULE BY MOUTH EVERY DAY 30 MINUTES BEFORE EATING TAKE ONE CAPSULE BY MOUTH EVERY DAY 30 MINUTES BEFORE EATING SOLD: 08/17/2020 [facility] 325 mg 08/07/2020 12:00:00 AM EST tablet,delayed release (DR/EC) 30 TAKE ONE TABLET BY MOUTH EVERY DAY FOR PAIN TAKE ONE TABLET BY MOUTH EVERY DAY FOR PAIN SOLD: 08/07/2020 [facility] 100 mg 08/07/2020 12:00:00 AM EST tablet 30 TAKE ONE TABLET BY MOUTH EVERY DAY TAKE ONE TABLET BY MOUTH EVERY DAY SOLD: 08/07/2020 [facility] Digoxin 0.25 MG Oral Tablet 250 mcg (0.25 mg) DIGOXIN 08/07/2020 12:00:00 AM EST tablet 30 TAKE ONE TABLET BY MOUTH SHAR DAY TAKE ONE TABLET BY MOUTH EVERY DAY SOLD: 08/07/2020 [facility] 500 mg 04/19/2020 12:00:00 AM EDT tablet 14 TAKE 1 TABLET BY MOUTH EVERY 12 HOURS FOR 7 DAYS TAKE 1 TABLET BY MOUTH EVERY 12 HOURS FOR 7 DAYS SOLD: 04/19/2020 [facility] 420 gram 03/10/2020 12:00:00 AM EDT recon soln 4000 U SE DIRECTED USE DIRECTED SOLD: 03/12/2020 [facility] 500 mg 11/07/2019 12:00:00 AM EST tablet 14 TAKE ONE TABLET BY MOUTH TWICE A DAY UNTIL GONE TAKE ONE TABLET BY MOUTH TWICE A DAY UNTIL GONE SOLD: 11/08/2019 [facility] 200 mg 11/06/2019 12:00:00 AM EST tablet 6 TAKE ONE TABLET BY MOUTH THREE TIMES A DAY FOR 2 DAYS TAKE ONE TABLET BY MOUTH THREE TIMES A DAY FOR 2 DAYS SOLD: 11/06/2019 [facility] 100 mg 11/06/2019 12:00:00 AM EST capsule 14 TAKE ONE CAPSULE BY MOUTH EVERY 12 HOURS FOR 7 DAYS TAKE ONE CAPSULE BY MOUTH EVERY 12 HOURS FOR 7 DAYS SO LD: 11/06/2019 [facility] 20 mg 10/23/2019 12:00:00 AM EST capsule,delayed release (DR/EC) 60 TAKE TWO CAPSULES BY MOUTH EVERY DAY TAKE TWO CAPSULES BY MOUTH EVERY DAY SOLD: 11/06/2019 [facility] 20 mg 10/23/2019 12:00:00 AM EST capsule,delayed release (DR/EC) 60 TAKE TWO CAPSULES BY MOUTH EVERY DAY TAKE TWO CAPSULES BY MOUTH EVERY DAY SOLD: 03/26/2020 [facility] 20 mg 10/23/2019 12:00:00 AM EST capsule,delayed release (DR/EC) 60 TAKE TWO CAPSULES BY MOUTH EVERY DAY TAKE TWO CAPSULES BY MOUTH EVERY DAY SOLD: 06/06/2020 [facility] 20 mg 10/23/2019 12:00:00 AM EST capsule,delayed release (DR/EC) 60 TAKE TWO CAPSULES BY MOUTH EVERY DAY TAKE TWO CAPSULES BY MOUTH EVERY DAY SOLD: 01/21/2020 [facility] 100 mg 10/21/2019 12:00:00 AM EST capsule 14 TAKE ONE CAPSULE BY MOUTH EVERY 12 HOURS FOR 7 DAYS TAKE ONE CAPSULE BY MOUTH EVERY 12 HOURS FOR 7 DAYS SO LD: 10/21/2019 [facility] clopidogrel 75 MG Oral Tablet clopidogrel (PLAVIX) 75 MG tablet clopidogrel (PLAVIX) 75 MG tablet 75 mg Oral aborted Ta ke 75 mg by mouth daily [facility] Insurance Providers Payer name Policy type / Coverage type Policy ID Covered libertarian ID Covered libertarian's relationship to bills Policy Bills Plan Information [facility] COMMUNITY PLAN [facility] [id number] [facility] MEDICAID [id number] [facility] MEDICAID [id number] Shaina [id number] [facility] MEDICAID [id number] S [id number] [employer] COMMUNITY PLAN [id number] [facility](MCA[facility]) O [id number] S [id number] [employer] MEDICAID [id number] S [id number] [employer] [facility] MEDICAID [id number] S [id number] [employer] [facility] MEDICAID [id number] S [id number] [employer] MEDICAID [id number] S [id number] [employer] COMUNITY PLAN 1 [id number] 1 [id number] [employer] COMMUNITY PLAN MCDHMO [id number] SP [id number] [employer] COMMUNITY PLAN MCDHMO [id number] SP [id number] SELF PAY ONLY [id number] SP [id number] SELF PAY UNAVAILABLE S UNAVAILA BLE [facility] U [id number] Self [id number] [facility] Health Maintenance Organization (HMO) [id number] Self [id number] [facility] Organization (HMO) [id number] Self [id number] [facility] Health Maintenance Organization (HMO) [id number] Self [id number] [employer] COMMUNITY PLAN MCDHMO [id number] SP [id number] [facility] Health Maintenance Organization (HMO) [id number] Self [id number] [employer] COMMUNITY PLAN MCDHMO [id number] SP [id number] [facility] Ra Health Maintenance Organization (HMO) [id number] Self [id number] [employer] Community Plan Commercial [id number] Self [id number] [employer] Community Plan Commercial [id number] Self [id number] [employer] Community Plan Commercial [id number] Self [id number] [facility] Health Maintenance Organization (HMO) [id number] Self [id number] SELF PAY ONLY UNAVAILABLE SP UNAV AILABLE [facility] Health Maintenance Organization (HMO) Self [employer] COMMUNITY PLAN MCDHMO [id number] SP [id number] [employer] COMM UNAVAILABLE S UNAVAILABLE [employer] COMM [id number] S [id number] [facility] I [id number] Self [id number] [facility] I [id number] Self [id number] [facility] MEDICAID [place] HMO [id number] S [id number] MEDICAID [id number] SP [id number] D [facility] O [id number] S [id number] Medicaid Dental P [id number] S [id number] Sliding Fee Scale S [id number] S [id number] Problems, Conditions, and Diagnoses Code Display Name Description Problem Type Effective Dates Data Source(s) 110130376 Body mass index 30+ - obesity Body mass index 30+ - ob esity Problem 08/31/2020 12:00:00 AM EST [facility] ([facility]) [id number] Obstructive sleep apnea syndrome Obstructive sle ep apnea syndrome Problem 08/31/2020 12:00:00 AM EST [facility] [id number] Edema Edema Problem 08/31/2020 12:00:00 AM ES T [facility] ([facility]) [id number] Heart murmur Heart murmur Problem 08/31/2020 12:00:00 A M EST [facility] ([facility]) [id number] Precordial pain Precordial pain Problem 08/31/2020 12:0 0:00 AM EST [facility] ([facility]) [id number] Dietary management surveillance Dietary manageme nt surveillance Problem 08/31/2020 12:00:00 AM EST [facility] [id number] Electrocardiogram abnormal Electrocardiogram abnormal Problem 08/31/2020 12:00:00 AM EST [facility] ([facility]) [id number] Paroxysmal atrial fibrillation Paroxysmal atrial fibri llation Problem 08/31/2020 12:00:00 AM EST [facility] ([facility]) R07.9 Chest pain, unspecified Chest pain, unspecified Diagno sis 09/29/2020 06:21:00 AM EST [facility] R94.39 Abnormal result of other cardiovascular function study Abnormal result of other cardiovascular Diagnosis 09/29/2020 06:21:00 AM EST [facility] Z00.00 Encounter for general adult medical examination without abnormal findings ENCNTR FOR GENERAL ADULT MEDICAL EXAM W/ Diagnosis 020 08:52:00 AM [facility] Z12.39 Encounter for other screening for malign ant neoplasm of breast ENCOUNTER FOR OTH SCREENING FOR MALIGNAN Diagnosis 08/26/2020 08:52:00 AM [facility] K92.89 Other specified diseases of the digestiv e system OTHER SPECIFIED DISEASES OF THE DIGESTIV Diagnosis 08/26/2020 08:52:00 AM [facility] Z98.84 Bariatric surgery status BARIATRIC SURGERY STATUS Diag nosis 08/26/2020 08:52:00 AM [facility] I48.91 Unspecified atrial fibrillation UNSPECIFIED ATRI AL FIBRILLATION Diagnosis 08/26/2020 08:52:00 AM [facility] Z12.31 Encounter for screening mammogram for ma lignant neoplasm of breast ENCNTR SCREEN MAMMOGRAM FOR MALIGNANT NEOPLASM OF BREAST Diagnosis 08:52:00 AM [facility] Surgeries/Procedures Procedure Description Date Indications Data Source(s) CARDIAC CATHETERIZATION CARDIAC CATHETERIZATION Routine 09/29/2020 9:00 AM EST Abnormal cardiovascular stress test Chest pain 09/29/2020 02:00:25 PM EST Chest painAbn ormal cardiovascular stress test [facility] Chest pain Abnormal cardiovascular stress test ECG ROUTINE ECG W/LEAST 12 LDS TRCG ONLY W/O I&R ECG 12-LEAD Routine 09/29/2020 6:47 AM EST 09/29/2020 11:47:57 AM EST [facility] Left Heart Cath W/Wo LV & Coronary Angiography 021 12:00:00 AM EST [facility] ([facility]) XTRNL PT ACTIVATED ECG RECORD MONITOR 30 DAYS 09/08/20 20 12:00:00 AM EST [facility] ([facility]) XTRNL PT ACTIVTD ECG DWNLD 30 DAYS PHYS R&I 09/08/2020 12:00:00 AM EST [facility] ([facility]) ECG ROUTINE ECG W/LEAST 12 LDS W/I&R 08/31/2020 12:00: 00 AM EST [facility] ([facility]) Results ID Date Data Source [id number] 10/26/2020 12:00:00 AM EST [facility] Name Value Range Interpretation Code Description Data Meche rce(s) Supporting Document(s) SARS-CoV2 Rapid Antigen Negative [facility] This [facility] and reported by [facility]. ID Date Data Source [id number] 09/29/2020 09:04:57 AM EST [facility] Name Value Range Interpretation Code Description Data Meche rce(s) Supporting Document(s) &PDF [facility] [id number]6ZmoUeoSWUZR3aXOQlRWYTSYonLOTIt vci [file] X+yU4PJD3rKEOBGEXfXatBp4BrM+wZUwse/hBWX2ZmVq5hF6/jhCE0zHXmXp4ykJoOxWTILq/p2y/[employer] [file] [facility] [file] [id number]== ID Date Data Source [id number] 09/29/2020 08:05:16 AM EST [facility] Name Value Range Interpretation Code Description Data Meche rce(s) Supporting Document(s) EKG [facility] [id number]L4ydtx4F3Z4oYIdG2NrjOWxv5ozK3OhI1OtQFCrWHJZPL1HxQRs jb2 [file] MDkgMDAwMDAgbiAKMDAwMDAwMDUyMyAwMDAwMCBuIA tfHKSqWMKaPdLdNMUeSLUoGI0mPnVcOZUlGTL9CUPnVQQkCPUrtaHXNQHyTMPaOBo6BWCxCOGxSSGvBZ nxHALpAFQnZIZ5JACkBWMpTB4yUgJmGRVmNHHhXXDpWBDhDCLzxkUYYCMtZOFiAUU6DJJzUOKjZWKaHY ntLLNjDHOmJga5LZPkHKTwXY6qPuQqNCZwMFA8TXBp KPXiBDTtmbREVQDwNPF0TCZrCyNbWVDjZXHlPQszNWBqURCjAeM9ZXLrJUUyTN5qKuMbNAGcBJP2XuOi ELCdMBVhlhGLQZJuDLEoBYP6DcNlRPAtSHXxXViaXJTkITGvOSBqBQR8XXZ9LFGyTdIyDMfbKYEFNXvG I2ThqgEiBzYFV0xkGa7vStCjYOHYQ5Nsr8ImSPVbYNYSHh1+YaJ6SWB7wBDzUgg8YVP9HpgnTXYJCr== ID Date Data Source [id number] 09/29/2020 08:03:00 AM EST [facility] INFORMATIONPatient MRN Name Date of Age Gend*PT [id number] Deneen Ramos 1965 55 years F HOPPT Location Admission Date/Time Visit ID Attending Provider09/29/20620 --- Desirae Benjamin MD([id number]) EPI ID CSN Admitting Provider [id number] Desirae Benjamin MD([id number])Updated H&PPlease see the scanned/dictated outpatient note.I have reviewed the note, clinical history and physical exam findings. Therehave been no significant changes.Plan as outlined in the outpatient note.Risk/benifit/alternative of cardiac catheterization was discussed withpatient/family. Risks included, but not limited to; [place], CVA, , renalimpairment, vascular complication, and need for emergency surgery were discussedand accepted by patient.Desirae Benjamin MD, [facility]AIInterventional Donor Floor Technician Name Value Range Interpretation Code Description Data Meche rce(s) Supporting Document(s) ID Date Data Source [id number] 09/24/2020 10:00:00 AM EST [facility] Name Value Range Interpretation Code Description Data Meche rce(s) Supporting Document(s) SARS coronavirus 2 RNA Not Detected [facility] This lab was ordered by [facility] and reported by [facility]. ID Date Data Source [id number] 09/23/2020 04:32:00 PM EST [facility] ([facility] Name Value Range Interpretation Code Description Data Meche rce(s) Supporting Document(s) Glucose, Fasting 98 mg/dL 70-100 Normal (applies to non-numeric results) [facility] ([facility]) Blood Urea Nitrogen 14 mg/dL 7-18 Normal (applies to non-nume nalini results) [facility] ([facility]) Glomerular Filtration Rate Laboratory test result Normal (applies to non- numeric results) [facility] <content>Units are mL/min/1.73 m2</content>
<content></content>
<content>Chronic Kidney Disease Staging per NKF:</content>
<content></content>
<content>Stage I & II GFR >=60 Normal to Mildly Decreased</content>
<content>Stage III GFR 30- 59 Moderately Decreased</content>
<content>Stage IV GFR 15-29 Severely Decreased</content>
<content>Stage V GFR <15 Very Little GFR Left</content>
<content>ESRD GFR <15 on IRON POURER</content>
<content></content> Creatinine For GFR 0.76 mg/dL 0.55-1.30 Normal (applies to non -numeric results) [facility] ([facility]) Sodium Level 142 meq/L 136-145 Normal (applies to non-numeric res ults) [facility] ([facility]) Potassium Serum 4.4 meq/L 3.5-5.1 Normal (applies to non-numeric results) [facility] ([facility]) Carbon Dioxide Level 29 meq/L 21-32 Normal (applies to non-num julius results) [facility] ([facility]) Chloride Level 110 meq/L 98-107 Above high normal [facility] ([facility]) Anion Gap 3 meq/L 8-16 [facility] low [facility] Calcium Level 8.8 mg/dL 8.5-10.1 Normal (applies to non-numeric re sults) [facility] ([facility]) ID Date Data Source [id number] 09/23/2020 04:32:00 PM EST [facility] ([facility] Name Value Range Interpretation Code Description Data Meche rce(s) Supporting Document(s) White Blood Count 3.9 10 4.0-10.0 Below low normal [facility] ([facility]) Red Blood Count 4.28 10 4.00-5.40 Normal (applies to non-numeric results) [facility] ([facility]) Hemoglobin 12.3 g/dL 12.0-15.5 Normal (applies to non-numeric resul ts) [facility] ([facility]) Mean Corpuscular Volume 90.7 fl 80.0-96.0 Normal ( applies to non-numeric results) [facility] ([facility]) Hematocrit 38.8 % 36.0-47.0 Normal (applies to non-numeric resul ts) [facility] ([facility]) Red Cell Distribution Width 12.6 % 11.5-14.5 Norm al (applies to non-numeric results) [facility] ([facility]) Mean Corpuscular HGB Conc 31.7 g/dL 32.0-36.5 Below low normal [facility] ([facility]) Mean Corpuscular Hemoglobin 28.7 pg 27.0-33.0 Norm al (applies to non-numeric results) [facility] ([facility]) Platelet Count, Automated 196 10 150-450 Normal (applies to non-numeric results) [facility] ([facility]) Neutrophils % 44.8 % 36.0-66.0 Normal (applies to non-numeric re sults) [facility] ([facility]) Eos % 5.1 % 0.0-3.0 Above high normal [facility] ([facility]) [place] % 9.4 % 0.0-5.0 Above high normal [facility] ([facility]) Lymph % 39.1 % 24.0-44.0 Normal (applies to non-numeric resul ts) [facility] ([facility]) Immature Granulocyte % 0.3 % 0-3.0 Normal (applies to non-n umeric results) [facility] ([facility]) Baso % 1.3 % 0.0-1.0 Above high normal [facility] ([facility]) Nucleated Red Blood Cell % 0.0 % 0-0 Normal (applies to n on-numeric results) [facility] ([facility]) Neutrophils # 1.8 10 1.5-8.5 Normal (applies to non-numeric re sults) [facility] ([facility]) Lymph # 1.5 10 1.5-5.0 Normal (applies to non-numeric resul ts) [facility] ([facility]) [place] # 0.4 10 0.0-0.8 Normal (applies to non-numeric resul ts) [facility] ([facility]) Baso # 0.1 10 0.0-0.2 Normal (applies to non-numeric resul ts) [facility] ([facility]) Eos # 0.2 10 0.0-0.5 Normal (applies to non-numeric resul ts) [facility] ([facility]) ID Date Data Source [id number] 09/08/2020 01:00:00 PM EST [facility] Name Value Range Interpretation Code Description Data Meche rce(s) Supporting Document(s) Follow Up [facility] NVJYDz1kOtESTkQfOODfFrjMAYwqOCvuOGFoB9W2DLtpRh9RPJgvwqMaBJItOa9+SOVsJS1ghf8gJZJu gMy 3zJENeEvpfS4ObQSGre85PKYCgYPdIBqPmVuQqTgI3VHj0FSR5CNQ7DlStMeimLT2nVIG4YQCaOExdBU YfVXLgWUO3VVIkFv3iZUvaDFmsBg7VCP0vc8IuLBXcWUAtAdfRAOiiGFzeWIMoSBIzZBIuR882itPlAG 7JtBChYAe6PWKpUkS5XOHsCkQ2MQXpWgTiJdOiEKVu M0Bgq386oqHnpoD9FV7XW9NfTFI9BLz4Y8ewCfClFRSxNSQbQE6fJpU6QDWrUx5JhKjiDVKwJLVdIb9S wZv3YSY7ONElAs4+Pj4+Fn5zboFfAzmKCHEcDI7icf63CB8MdCYvPH6APRheX99dLLkaUu80ZLfiWZZw AqZjHNh1Wc5vDgJed3CnA2HzYNn4R6uFNljbZ1QsHO aeCC9pEBV8DYMvQp6+Dn7jCDBnRT75GJIuIKQRZ9HphmImkjRtKNw8PSSnIc1+Ex3mwkDaSxpUADXnKI 2lve07GC2MUX8vnFxfPwGmYaOwO10plWZzU1kpTrNyN5AwkQcmJHZgKC2xF0UzXVpwFKQhLW1zfzFmcL 3OnOe8XCLeRt1YbAP6PYCiR37nSNGhEZRIEENvx1Ag VR9Lc1yyfhCfXTOqPX7CARAgK3FQK3JiI3brkNxvYXCtBY6ULRkblAEnVCk2FY5FaPZhVAWeM80ptN8q XT17ZJl+MxB6qiTyeF8AuBjdm2GEDP+384h3FeebR7AaC+3nLVJZtWiZ8R6jXYuTZLzbCQt0d6w6xzgA SqzRhfkP0EQDTwiEkDr907vd15LGD9/YVbuqvruqnl bSjquJ0Wc6yKUYXBNHFSOSFC7ZNNKSACIl4QQ7UdC29ha4aBPPOVDXjAHGRVV42Gw540vbODiV+JlZOd [file] Jose Enrique/VbN/nVIKbX4Pj9BMaPnVnBU2GsQRaX3j3Xe2VjxiSfurdGF6NQUrO+4g4nqj6NJlpyVYa6Qeq37f2 [file] oayLypr/3hzuo/rt+8mRS0/Y3Ui3F2tXKyBggcXNralFJbEdi870fCZlGCE4L/Saúl/236zmUwEB3eBBl [file] ebRQbnBfDzJVKn/CYELgQGNFyfLGlrqmmMVmpoafBE KMGJp0SLf1KgDQ8SOeZ1V8ANOM/sg3m0Z+l9zGrXIbTgpuCYV8k9hxavFdD6g5xw9kP8oIXAF65TUJ/u VeD0ep7vRpTkUKfNEcbWrvmyzOAohC/RX7ury2zhxc2gj7LmIBNsRZ+EPHCw0Z4awDKzAsyK7aL5elUr xsia8ArDVViRdPV6fYagsIRtERPxXwbezaoenajwYJ YqszhJx5kPM80fFATEH5XxtKyJkb9kbqxrDQ7xeJZwxrvTiVUT7eSF0AMfE4lC9Vf9euW0zMSsViVbVP 2Be0k71qUM0aw88ZfjByWefAUeGk8OY3LKSc/f6qt8DlSAQZUA5YE7m6mq01U6/EzubGZuiLa02F8MMH 2BoBhJihoGtqzLeFg0w0qVPA9s3X6ZXZbpebxlNN3j JfBZ36+fvqYheNFEegODoXlZMa9pm9j2u63iQexjAmzf9ZWWEoHOMN24R+sSxkv0X2z22NAL8G5+Xj/x fDEq9mdRgtYZi4oskjrYw4MSVXrnZRwsxK4Ydvwlj5IR6HB2UL9itjZ5mAp1HabzZOjkOzAhSeceYvWG 5S1Is4mfjisga3l5oCkpzjDyGbL1boIevBz++ab74l Lxto/Qc4gD6g/kgju6XYc7Fzb+zoP11HJq2kfZitIOxt2A5spZ012PbchCAry1kO93JtJ7mNZK+xoxzc 4KsuR/W+Sp49WlC0MW/Vice President Diversity+2uiC/Lj3CBtsUl3s2fzewulNNB02kmxWs//MnaRorRoZWgEc0wM3m4Toxi cYnT+VGsyI//70P6zOw3U4Hh9tN0YWIE1d0AGVqfBN vvgiR+B612ukYcz0Jv3JcDpP7vSPEgF6q/C5kWHOm+x691ObAC4bSWvvFyE2EiyASflsAZzIF2r9x+Dv H4yWdDiYrgXGGBgOkgru9BkFQyBmuSpOeNcNzq2UQfjNdPJtBFNCVYBKK+h1Ly3DCDHazwKPL3Gj5dtr beZdWNP5Pg+//X8dhqVQcyEL9N02gJ4XGlqz2kg5OC Nxbx1fUUW/UhB29VVcWW9tCNT5EkjmspH52k7jgz9SmVtpqtxobuE1qAdnRBEnyFqjo3QzuZf/SvfI0V R4bZwHpQKQdI0/Kv+mCIiIwfnbmR1L+4x3EZ0BKc9Dued/dgBLqzrzvdWbwXj6uQnsibOKj7bD6zgXI2 E8lHv4UEBbg/BrQwHPfhy4uNxcK9OzUQUhMmKQk443 NfmNOaSYBkOzZw+Kwb/DIcF6o66B3rBfWtLf+TzezGI9ZZ4Z/h8zFj3oR0yL7P6hb5Aij8WIrcq7sJOr YvQOcsZ2xPR13PDCFjXp7x89ne0ynVZrjotuCkrmphG0VL5p0XqFN3menpSkEIJz/dcBlE07qSpMtPWe 5bpa02nqX5pMz70Gu9yEYjQEgJ0is0Nyzig/1Qre1H Elizabet/UUGMJFaTgpXz6fMjMWJst2BTBg0ZLvBmZBUeArCPc2BlmrBcdos3Z53vCipF5yIG0T5BPW222C/v [file] gewGIDrAWvI8kC0j3WKOHRWX1yUkg3eOmkXbUADOFROya3qMiktXtbhJAyLA8NgRk8GHHcHmmEv/systems integration analyst [file] nSOxX7UDqhPakDuXtWwft6f3JbXipC0kyaYDAz5wHOmgs6vdiglo5FQO7Zv5gMWhVJGOA6sc/LaS4+computed tomography technologist [file] Chitra+wnhpOn9RBovo0YAMJeBP2jBM8i9OLcarh0kMDMF/6zljHl2pnsWoZfLpa8A+64uSxcc52LKNFdMmk sgNVd83xjHj137FysBCx5yqak0/LFVL8I7Y+PF2qkG7KUeXYbndpBglVuw68sTuscehbfFxyy048y0mP QQuKhjgnHS3VOr3VdoRgvGH78Gd4bIiPFGWeh7Rz2d fbyO6ep7I0QZ1nHK+kNON+jmBG7/FgfxYOx2636MUdWf2for9LF8cDBOlGx4gjIMCF112oBcJMwxgJjM nZtQLUiVn9aHuYyuUSp+YevqWabNhK75AGlHvCsLZWRvJi1u1/F5QACajkt38jtMgfltJWCJYdxyYbil Sj6QRFxL9nKEL8WekHgdYC4razCxfmr3xSnmbXL+hourly caregiver [file] enchilada maker/1PeSeVdKwlVKqm2Np3MHwk4ZOA8A3GnVajB8iHq+4xpo0jriTrmDuoerA0NpPrKysc8vpMqQkI5p [file] eV6nYPaWYu/+yEC33QvK2ZNKXDp6MYSoICzwF6m7BJGQH8h547735674e60DR+steel welder/Yv+AVXiYxpd68Th pc7qFjODU7tR/oyLxt/N/+BBjnCCBfhLsHO3vTrk/f0ZBr0Fvx4xWz/z/tQI/Daxa+e9xjWTt2nn0MWod [file] xMt1ebzfn9G7pOE6NCbzblsweX5Mx2odTg8cpKpSJ2DcvE9Z9/jose enrique/qLia4t7xKy5T7+LUcrQktbV5OUq [file] mcdqRmR40ssggLJ0z+computed tomography technologist/RQZXJYKc59QGxKGVoI7OhecTMn8n1vx6v54nMjVgRw80e1BpNp5X68IRicS [file] Maria [file] aG0nzR+sVUFkxBUEr4yQvVoi5XyScYSMGlexj0h/Petrology Teacher [file] vGD6U0riqJyo5aBPqvOs199Qqu/sWsjWsQeC8V1XATegs6Fh/JOSE ENRIQUE+VliVO4faFW+Ic/wsaU9vABjRn4Tv [file] Sup5ISn4W1dj8hZhOqArLc7aj32H3uUyEJ/24mObC4DLIvtMRH97YStcLeHys4x5EEjRwW8Bo6W/[facility] [file] YIh3uul0PflwNeoJPwbcY1rNmAzz0p9tkur9iyeTvxdoCMddEJlZD66YyfA1czfU9+ttSmsPzHLk+mine deputy [file] e3DaUXYfIIqkucPwSkzZKIravEIvhMsoKOYIVxBiAPBdWtWFStLmJP4G ID Date Data Source [id number] 08/26/2020 10:04:00 AM EST [facility] DATE OF EXAMINATION: 08/26/2020 8:26 EST MAMMO SCREEN BILAT WITH CAD HISTORY: Screening Based on the personal and family history information your patient supplied atthe time of imaging, her lifetime risk of breast cancer estimated date by theDillanrer-Cuzick model is 17%. If anything changes in the personal and/or familyhistory this percentage could increase or decrease. Currently, NCCN and ACSrecommended adjunctive breast MRI screening starting at age 30 for women with a> 20-25% lifetime risk of developing breast cancer. Comparison is made to prior study dated 01/15/2018. 2-D bilateral digital mammogram in the CC and MLO planes were performed withsupplemental 3-D tomosynthesis of both breasts. The images were analyzed through the latest version of the FreshOffice[employer] computer aided diagnosis system. The patient states that her last clinical breast examination was October 2019. Craniocaudal and oblique lateral views of the breasts were obtained. There arescattered areas of fibroglandular density. There is no dominant mass,suspicious clustered calcification, or architectural distortion. IMPRESSION: No mammographic evidence of malignancy. BIRAD 2 - Benign Findings, Routine Yearly Mammographic Follow-up recommended. 10-15% of cancers are not identified by mammography. This usually occurs whenthe mass is of the same radiographic density as the surrounding breast tissue,emphasizing the importance of breast self examination (BSE) and physicalexamination. A normal mammogram should not delay biopsy if a suspicious mass orabnormal findings are present upon physical examination. Electronically signed in [id number] by: Juan Villegas M.D. 08/26/2020 9:58 EST Name Value Range Interpretation Code Description Data Meche rce(s) Supporting Document(s) ID Date Data Source [id number] 08/26/2020 09:56:00 AM EST [facility] Name Value Range Interpretation Code Description Data Meche rce(s) Supporting Document(s) DIGOXIN 0.42 ng/ml 0.9-2.0 [facility] ID Date Data Source [id number] 08/26/2020 09:56:00 AM EST [facility] Name Value Range Interpretation Code Description Data Meche rce(s) Supporting Document(s) GLUCOSE 95 mg/dL 74-106 [facility] BLOOD UREA NITROGEN 12 mg/dL 7-18 [facility] ital CREATININE 0.9 mg/dL 0.6-1.0 [facility] SODIUM 142 mmol/L 136-145 [facility] POTASSIUM 4.2 mmol/L 3.5-5.1 [facility] CHLORIDE 104 mmol/L 98-107 [facility] CO2 30 mmol/L 21-32 [facility] CALCIUM 9.1 mg/dL 8.5-10.1 [facility] ANION GAP 8.0 mmol/L 5-12 [facility] GLOMERULAR FILTRATION RATE 65 mL/min [facility] GFR IS CALCULATED IN mL/min/1.73m2 NATALIA L FUNCTION: >90MILDLY DECREASED: 60-89MILDY TO MODERATELY DECREASED: 45-59 MODERATELY TO SEVERELY DECREASED: 30-44SEVERELY DECREASED: 15-29RENAL FAILURE: <15 ID Date Data Source [id number] 08/26/2020 09:24:00 AM EST [facility] Name Value Range Interpretation Code Description Data Meche rce(s) Supporting Document(s) WHITE BLOOD COUNT 3.5 K/mm3 4.0-10.0 [facility] 4.37 M/mm3 4.00-5.50 [facility] l HEMOGLOBIN 12.8 gm/dL 12.0-16.0 [facility] HEMATOCRIT 37.8 % 36.0-48.8 [facility] MEAN CELL VOLUME 86.5 fl 80-96 [facility] MEAN CORPUSCULAR HEMOGLOBIN 29.3 pg 27.0-31.0 [facility] MEAN CORPUSCULAR HGB CONC 33.9 g/dl 32.0-36.0 [facility] RED CELL DISTRIBUTION WIDTH 12.3 % 10.0-14.5 [facility] PLATELET COUNT 209 K/mm3 172-450 [facility] MEAN PLATELET VOLUME 9.9 fl 9.0-13.0 [facility] pital GRAN % 52.9 % 50-80.0 [facility] IG% 0.0 % 0.0-0.2 [facility] LYMPH % 29.8 % 25.0-50.0 [facility] MONO % 11.1 % 2.0-10.0 H [facility] EOS % 4.8 % 0-5.0 [facility] BASO % 1.4 % 0.0-2.0 [facility] GRAN # 1.9 K/mm3 2.0-8.00 L [facility] IG# 0.0 K/mm3 0.0-0.2 [facility] LYMPH # 1.1 K/mm3 1.0-5.0 [facility] MONO # 0.4 K/mm3 0.10-1.20 [facility] EOS # 0.2 K/mm3 0.0-0.5 [facility] BASO # 0.1 K/mm3 0.0-0.2 [facility] ID Date Data Source [id number] 08/14/2020 09:27:00 PM EST [facility] Name Value Range Interpretation Code Description Data Meche rce(s) Supporting Document(s) SARS coronavirus 2 RNA [Presence] in Res piratory specimen by ELAINE with probe detection [facility] This lab was ordered by [facility] a nd reported by [facility]. ID Date Data Source [id number] 08/11/2020 10:30:00 AM EST [facility] Name Value Range Interpretation Code Description Data Meche rce(s) Supporting Document(s) [facility] NKFSOn1sTfFZTqUeYLFuRmsDCUqdKWdnKGKjZ1M4INhxLn2NYKssjwKyPINmMw9+MSLaKS6vka0lIZMp gMy 6fRYBdHugyY1OsOMRno83PSZExIFrTJdEjQiCkQuKnIxEsRhV8LEE0EwJwWhzzAW5kJKB0RSAnOVlwLO NaYYRvCyTmRoT8ZW4cPMqmESsuAr5HKY7jy7RxRSLlMCObOvyWPWanMOppXUXsWCErRSDwM081xxGlTH 4UcIIwMXv0WXNeHsL8VGFgGzV8FHFvNxOhKvIuPFDk N0Shy696fuBzbaG9YB9GM3KvDWT8FPw0V7avQcXjRKSrYPOrSS7jVeM2OQRzMh3VaWuhWGSeTPFnLz1M dPg8ULL3QJQmVh5+Pj4+Ep7dfwItNvxTBPDyPD5kfk58HX7BbAVkZB2UMKuiM41sLIvaEb16EQqjHJFs TtScRXc8Vy8kDmQha7JgE5WnJCq3A8rWYqyaB8WoTG eeNX5tFMG4LBSyNu0+Gx7yJWQrWM16JDWdUNSWD7MftzVtrhHzISr3RBQrPo2+Gd4iqcCyBamSZKIjIZ 9hrm33AZ6XDS4hjHswWyj7Fwz3N19dvFVcE5iyMcYoJ2GmeNfwJDDlYJ2cU7PaCHeeUWNaHG3pyqKcgQ 4MkNs7MOJxNa1TwJM8QKUtV30iHKTsOTNNRNThl9Wc DF2Sp7hcgjFrISWrFL9SJASwW8RIB4FnF7oieYniGOFyCD6JTJezqKSsMDb4UF8RfZQqIFFkL87dnW4v LJ32PIk+JhQ4zgVwzM4DaIbav0KYTH568p0E2+QnUk4JpVtMLZOQLPipHIGA5N3GpNcWBAOVg0Zzw1gb 7gwafAYd/OS/1612iD2hryb0tq6upmn00r2D51ui76 [file] jCDIZDSKLp58xRk+Jose Enrique/1Cz27bAGceW3Aw8ToosEFM0RBXy1eQASdYQXOOhKYvlcpqWfM9PeQgt1gejed [file] 3JwwK88Y/Jose Enrique+fkmq+WyCJMxY6n1GA4iMzPZ5guZh5UG51ZQmaJhyMNoQxZnOcrvOrfUMucXoESyKZlie ZhxniFMI4HiSjn2sgP175DTF+WkSnEd/WOUocLI69h+JZI1gv2Y1JBhN6QNAJc7pq5+YDVlHluj+c+Yw hLJmrf6066wku1rINZHenzN2eccTvsnZ2+zKgPCcdt 0JEoay2JPbj1o0mbiugCLhjVzu7lg3JqiSbgeeLCd6FQzI7MO1FrVSn8TY+pFba1ujS1xI4vbPMUbCow CGy246s9GUj70p60QORqdPqba0zhwVF3TRLxGewJpfLpwNG7MrUbcguE26a9wMNsVyMzCsxTYOm/3sW0 SSryEUHG9XwO1DyXDfZc+CaxCT56aqLkbvcSxovkTu CJ6EDhs7uQ1hHIm57m/kcUo46ZLDWXNhRbm0IMUJIaV8IEgdCnJFhvMvbp34fu4mtH/Nx2aD8mrC9uBP IItkxS4j/PfvQlUIsB/L361j0dJRViS+me5DVuAqVR007boOjP4+Yj4f80hYXE87gV+IxXywIZ1Zzb37 +0vxRbJo2I6/OYyyhZsGQgb/1bIGtNX/T9DJJ/RbXw Dat9p+G2AsQiQDzZU8ZvgEe1J37zjDtI0UKpaymvn35KsaIcwk3H6lABxZrjwjc4Fzeu8PSwLs0l9MzJ abVim6Mpzrx/o5O3DJo1pnPC++LgsRxp4ZAAZrkWm7KMUrISOZM3ZQzq5Uagg81//Christina//MJgJjIQxRh [file] zW49S46WfCt8mx/ft99CXPI3ruQGK2z+PROGRAM THERAPIST/wmZHR2Skerp99r+yHBoZ0c4RZWGyvAY2Xpn01cmHt6LAg [file] HPxmYoy89eKrdqECQR8p3vPU7BwjVVlpL2IOEYUcAoyL3xflRy1HtL9MZyRLy1TM8UL/71YD/qEd+probation manager fIU/hmH4d6AWM+qjs/B5M5q95i7UL6dC4FWFVeS7py+Fdr/3tIof+vnQ24yTeCpTuAOgVvj8qinXov4v VyR/wXJ4B9LzgydxdyBOnkab2IPgBozkt5NnpsbL7u [file] P9YAJDEL0HdW75f+HancA6eJs+7h2d2kumgwigEYU5SdzztLIFAKaEriq7NDnoOoTK55SmZ0FWleE+hourly caregiver [file] concrete craftsman/5ZkX2ww9rk2FKgEuZv4yLapo/yLn1uKcPcRPEXsPlPBbA4HENmOxJG7k9EpJKaITosTG8h/k7YleL [file] 01aHaxGS/NfB2wlrFTQjLYL+Mental Health Clinician/Hh7s3n/VZYHH8TLtpg3SBNFyL7XolkzGQb22zf+SSDZc0H5q/yMN [file] YIWnrFTVcBco+director erp+yqjKPXVZdxPJlc056OdKKZz0EcTb/MQejnP+2SelF58x0uDKOuA4CFhEDdymhi9 [file] S/concrete craftsman+6h5GWuYqvBI2T6zaSBB1K+NKVRmvZ6qxsGYTpHr08adPY/NZZPn0EpXvuI0RRbBbsur7eWpZiGo [file] KR/nkyG+AOVItjH7ux6m0ucohu/sLWgGeTCadK3d1xYBIFOuq/Lizeth/gZnKRB+xK+uyK60sSZALpbSXx rSoVej7t66TTdPO2lCk88qqZyybgKog8zIqYiM6CkD+NGI3UYDeY8BdsuDu153MMH02WVG356lplfJoJ hMsR427CORblpewvBywab+GCGtw2TfhbftrxZpxNMU g/AIiFw3rq8VzHlT5+UpOGxaIJTFOpEgAVdvzVLFW57SMHSc3XhShirLs+9E7DQA0npHVU9b8QX+mEL9 K6HIvzg/Ewxc7IKtR3Bv2i5IIppz6PiCTIBFcyr0DKHOniw3t7Dx9YbaKUFH+lUhrXqvYdYDc6wK/visual lead [file] Maria [file] jose enrique/gJAdfXdx2jIYZjwb3G2pwdxRRb9lNAFm7/88P+Rjwr3SNjOU/h3vr6pZNQaO3fazPZCMg9bu8s/sf [file] hourly caregiver+CoVRY8/xjVCl2DSxArhPzqeTGyo3Yp7IXMKl1Yqu6y44gKmqWNC6c4Uu6C11iwH0elmtJ56tSHM9N [file] [address]+rGZC+j+8fxFHYRrdDpp4Z7oWcFav/Qd971WTl0fE96RaUsyafBg piui/JDmwCA3QExfttLEXbJIFTLOwO54vz9/vb0NfJXXoj9RX1NI+1OXEmI+LAAfMcdYN5pR/YmN5e71 lpRk0Nb18t/tMEKXUHpJS30C/mvGPBrD4hdTRymVP8 SBmjQZLOF5UbrvAzohR+8hMFHBfyhxNstfmwmbcM0V+Y5jA3BF96QXv750OK6Srehmp2zw1CZIJPizTF 06EK7yrxTZt5M0LvWFLKxqve+o0EXbECWUu07ybCEj4LZCVfW9U/JZwVnYIjg4Er+kfZa2GztQLIVyeJ HpBgH4lh/1tdBUUsY4hlzQkC/6KY+cN1Wiz9dnTnvB XkRLdBwwEi+BcKzo9YHw35k5DNghHw72u5R+a6/laKJLrqh3WJH8izS81SGmfnH7ioqzctQxmXpMj8rE 6B3V1pWsLZR23adGcMACVsKUbVurUK4Xv4C1TLsxPrYKb/5hg6FYRC01VEVC4WC/fmF0UF9cHKMtQf0C k4uHCK52zMlCLQrob8tql1ihrPX/GyfqO+b9NvED2A +1O/VJO+uojker7FahUk26lFlpT3vWufnehE38XHQxiRA3fXkidGV0cK6z6WC8wzUDX4Nnq7+AKSFqSL X+Gw5f1KYY+p//hhu9VIsQQduDbu+OwICfTzzzUrI6HCs8TpJG816Ly+R5D7JVoB0oFUFPoJSkq2bSJx owwtMpxrFyhcbUE/tkqnIeQgmYXXTPLIOxesaYjxwa [file] kPZpdx3qYBlLNxojwVO+ANGÉLICA+65V8iBThYiyJWQ+QPP [file] 9yYADG1S3f7KRw7RJR1nAQuVSP/d2s4YIW76LKHWjeR/PUjwN5nJ0P6GVDKm1ChWZbZsdrS4ZBo+rubber stamp maker/ sYRg/MdSrcRpawlxaVVo8hOxbpvFyZ9cqszvpgrOFf [file] lJGecDqAaTtO06fcsmbb1tQ+Me3bC7gJry183wHkqzyG6bLHggH1/Petrology Teacher/ZKklXLGqvWikq+4exs4wY8Wa [file] Yr+Jose [file] Jose Enrique+/6IILosXFT1YfDtkSO4gv5y4XyPUD1R3oIVAtYZHr4lPqGi1ltWeGyPlEmEtP3alRs7wI1xe90zFe [file] bcfCT04SwlMC0zpLQTFtfisbrnqRO02oj3pWI2Gi0J60u6PviPGZQCj7RxpgnVoxXvSO4hxzVnUYO/computed tomography technologist [file] 2AlfE26jnJD9qe4YdCDUVswOkXn9/KHL+Hrx8gmaDrnJO6udBd7P5V0FWb0jsuUNXtbG4wtbqA7h+industrial sales manager [file] axRDRDGrS5HN3CrB7Pdr24PZUv2WaDKrJn1qxIef8XYeyc4RlSkw+PEST CONTROL PILOT+rvB73dWhDBv0yqh8TVCaOs36 [file] HBwcHBwcHBwBwBwBwBwBwBwBwB wcwBwBwBwBwBwBwBwBwBwBwBwBwBwBwBwBwBwCore[facility]B [facility]z/x+BOdHZrRB53N74sqGrOcDO4jbWVA5LmJ+UaH5TlEfeerl4teMVI9 [file] TEVyMcxGVUJXQikJPCGEMNtPVBIQCJB5ULRCHBFFJPwQXEsGUg9vBLU9KFJdMNFJZPHVCKC4OcGSHpG6 NKL4PyO9X9LYK8Y4Oy5kVc7ryZCyTTXzLv4EseQzLKUxFBENM6AnbbIzYElxHFljBLZjQWGxVk8PXZtv IDQgMV0+WgG4jkJvvL9EoNcgJBTyXAIpRCJnILLHJB 4XqPiCIHJemGWtkntU82KfueALKVaTOK4Og5+BJG/lNoMLfyirRgODvqdYFZQKBrDGCt2Jit9TAW2jn1 JpSJRwIQyqsnIbBidRKRknfRWgiQfjDLJEYtd4BWosWL5GYMQFY3G= ID Date Data Source [id number] 08/06/2020 02:16:00 PM EST [facility] ([facility]) Name Value Range Interpretation Code Description Data Meche rce(s) Supporting Document(s) Red Blood Count 4.97 4.00-5.40 [facility] White Blood Count 6.2 4.0-10.0 [facility]) Platelets 215 172-450 [facility] Hematocrit 44.1 [facility] ([facility]) Hemoglobin 14.3 [facility] ([facility]) ID Date Data Source [id number] 08/06/2020 02:16:00 PM EST [facility] ([facility] Name Value Range Interpretation Code Description Data Meche rce(s) Supporting Document(s) Magnesium Level 1.9 1.8-2.4 [facility]) Thyroid Stimulating Hormone 1.140 [facility] ([facility]) ID Date Data Source [id number] 08/06/2020 02:16:00 PM EST [facility] ([facility] Name Value Range Interpretation Code Description Data Meche rce(s) Supporting Document(s) Alanine aminotransferase [Enzymatic activity/volume] i n Serum or Plasma 28 30-65 [facility] ([facility] Alk Phos 179 50-136 [facility] Aspartate aminotransferase [Enzymatic activity/volume] in Se rum or Plasma 29 15-37 [facility] ([facility]) Total Protein 8.2 6.4-8.2 [facility] Albumin 3.7 3.2-5.2 [facility] Total Bilirubin 0.3 0.0-1.0 [facility] A/G Ratio 0.8 1.00-1.93 [facility] ID Date Data Source [id number] 05/12/2020 09:00:00 AM EDT [facility] Name Value Range Interpretation Code Description Data Meche rce(s) Supporting Document(s) Follow Up [facility] BSPDJx3kTnHBHsZnJWZwLgjYHUdkGNzjKLTcJ5X0PDvtZn5HRRdlgnDjPOGbOd9+LXXrFO1hsd5bAWWc gMy 3bIAMmCsfbF8KzWMZds01LVRGnRUcYOzWbDlOaDLBuDrX8TmH2TOU8DwYgXqgpII9qEET5PHOiOIxrLH SaFBbqDPMgJVMcKJ3dNAhsLQogIq4RRS8hz7YaUQLeWSGyJzyKZZmrEXgaKOPsBCTbIUPsC763ctIvKT 7PyEEpXLz0IZWmNcI5KBKqCjY0OBBwYkOgDkZiIBOv O0Njz184kbHvzmX0YS9OK5VuEFE4FIc9Z8miAyBgGXByBLIxPT8oJrP1FASaJr5FaKnoFCVlVFPzXp3H oJd3CZN8ISQrMy7+Pj4+Rs5dfmVpGlzLSBPbMJ0qbt88ND6CeXDkCV4XBQjtV94rCYkkXl45ULpxBHWe WkPlBEe8Yw5zLvJjl1SlA5BqKCv6O0pRYjhgJ4LdHG jhAY3cHUP6PTNrLl0+Ge4cMMHdNH78NSVvPXJMP2JodzZwddTeDOr2WMNrPf8+Un5nylAuQknKYRZdQA 1dof89QV7ZYT2gfGqkSwXaBmDoY17doCZmS0teTbGtM0QpnZxcMYWoIN9cY0MpFPhfCVOkVC8cmzNftF 3BjGu6VQOoHb0KnSX2MQYbI31sSTLnOKNQTBWie4Un ZS6Xh6yssrUuLPKsQZ9QQKIrA8OOS1XeU2turFvgGFAlJP0YUKxrkCZjVWv5VO8FgZNaLYAqX16bpO6s HT14JRf+UuV3amKspS4CqGphn9DZVK018c1X3+BsPl6AwVbVHMLAPLobSEYA3E8BhOeKJCNGu4Oxc3hk 7gwafAYd/OS/2120sJ3qpue3rp1mcuw69g3T18ul30 [file] pUIKEHPALe99hAa+Jose Enrique/3Bi07lZFskM8Lf3LtcfRNP3TWJo9wQPZmJVEMWeNOztkarVoF7LsHtq6bpfqm [file] 2RkqY78Z/Jose Enrique+fkmq+ZfIRLtB0h5KY7xSxGC7ehSq6HB73JIylIhiAMiQmWwVdbhFvtUAxmFsLOkEXqxw EdzwwMVD1FqTtp3roJ044WHZ+WkSnEd/KYNfuUJ80l+JIJ4zg2Z9DLfF8CYIBk3in6+YDVlHluj+c+Yw cDLher9662uso0zXFIRhpoL9lzwBrlqB6+zKgPCcdt 8AHyzu0JSfu2a1mpwqjNIcnFcl2bp3NchVbbtcSLi5XTlT1UY4KpSSg0SL+sHsd8anC7iN0pwHWAkWrd WGy553k2WUk25m57XVLqdOznw3jmqGO1ACMkEitFioUwiFE5PxWscviL88y2gVFcRxZaGtrZZDd/3sW0 HNnzICED2PmF0NmCPhVh+OkqUL68uuJuvtvSbhbuWt AS2DAhw5hV3uINt14v/qaPe06AYUZKGlTps7VXKEMzM0EJzgCiVEgkWzbn36ns6vvJ/Nn8xC1gpM3iGJ ZMxuuL8l/PfvQlUIsB/R653e9uABXkV+di7YQzNlOH310muPnJ1+Ou8g43zNYW81vJ+GoQwdRB3Reu97 +5xxTfLy2O4/OYyyhZsGQgb/1bIGtNX/T9DJJ/RbXw Dat9p+Q1QrDfCJjUO8IoeXh8G19idTqH2JWzjrliq19KzwTcse6K9tVOlXjdytf3Hlbt1WTtOb1h6HmF kbStw9Wknlm/j6B8YXv5aqUU++BtuUyi1JEUHqzKo8XUYmENZRZ8VUzg4Tidt13//Christina//MJgJjIQxRh [file] qZ24X46XaNs0lm/sw03JIFD5hoOPA2j+PROGRAM THERAPIST/emEIA0Fpvag97e+mCBbH8m4KPVGsnEB2Epr08enSp1YQi [file] TztT8dd4hxC7/Z/MuF7hlFXJW0xdGp+Angélica/3qBPaqm [file] v0DYwh51BRglOvAo5Lh3RSfx1//broadcast operations technician/w5GJu8neKbXkaM9wdK45AsFtFKBexbfVeSYpBfxowNYv9x0ha [file] Vice President Diversity/fyoS5wNovLh4/G7MtimHM/7Vd9ED32DTH4eUPGPbY/pUf5+P3xy9Zc1KV9NdZTff8g44szHbqGkVM [file] i1uYtS9w80n3PLZP4o7vYjrvsj3mL0e3wK+/Qrt3eIfT9lxtadsjS4ibrcRS9mmlDl3fMHgkd3cyg 8f/nfv/gQ5ErdigUyYBATZwhFpSzmyrReWrFBSBf/1xfjFmKfq0jl7BOMgsavgtO7e8XfvaAlHpmGB9q wuMi0WbP/DkrLEjGEIsAxGbv18zXaoqXt7w6331rFh sgO2O+gj4SoKY+ecpmXbBkIjHwZaeE3fMZi0CKyxIFWHzP/H7X/8Y4fPUGufoyguGHA1Qyi8mJrkbnUf R0FJRMgjBAMN72Hs5YthCnhyCI+SUMVf/pbgyDkAN3kRoZhNo16y277TwCTy0HJbOAmsro7G5/sS6xmt E7G5WYlnHFGQsVwiSkwQVqD5My1sn7wp4kV7GcBpJt YMnIchEUKLnZojaSjdErwqZ3babm4yhng89J+ez/0cZn32rKF7vc0OCNesDNv7MExb0rMA4chaj+ROKV Uf5/29Zrr0tDoG9r02dWhWv0KoexCfTW4hBp88PUNPPPW4aXdQ2Pz/5Bmnmx7O6GguU3UonxeFJO277P C3UAYZ8dq+PROGRAM THERAPIST/tl7NUyxgdkSWr0xFULtHokLr8Yhs2 [file] vtb0yO8wJHmuiz6SlZwY6KaAP8fbmUaZO4+NAOMI/0mu TDrIcgxV5TrDCQ+MDh1Na4wb25y/O/vNWJwhMm+Xn41kqiF+kagOR/dAn0gjZZB3Jh+om77rw+q10gkU 25l4p3oJ3Q6LlHGBgZs7409EJh44khYuXqqB0mZmNijnGbo1ns8NOPF+2/mSwh8V8FGhGIcLMSLaVhdf LWZL/LiEJq3We6c3crC8NvdMvbGY47uc7h0yO3sqZF ZKxn4IDgByiuUU+zdiMhaX5W1anqNopFSWDbgd5PEzL4TIuMgmY+UPVW4/Es9z0kA+IStwKhL79jnn5/ ohIgzp3TvsynEhlK5nmtUUNP/x7h9FVLbI2Oy+WI30mYm+zY3HlurYxyHwA8xk3ci+2ZDIMSKT4AKUgT wlhv9PAVef5ttL8RNGFpGknF36p/P6l6fqjkfV4m3W WJ5EIhyiRoO2sJv3gZ15pJYrnbMQ8v3/K0cDodprkrzV2tJdEV4k5AgMGhVVv4+4qBB/7WTDpJ9aPfVF hourly caregiver/3PhmxdMS2LNWGMHZfgk143/B2tbDtw+hph8jMVNHDf+lAXSstdZKQsYO5S8mExfcOqw6oh4or5mVf [file] l+4k/NTg0KWtlbl0xc1x/QI+R5X7XrtCP0/O9 [file] mvTqp+VIJI/vBj3l9uQIapJYx/s58n5eirozsQHr3gEE97iFxW6XP2lz/5fZzWl5jG9IALT55vTv6fb3W 603GiQDyA6llERLNmVc53uNrm+AKfVDcfFGM4ZYaM4jp4RtSqeyB0iIV7E33mdn2amQMeHwmmCuIQgQv k3HdWens7UWSsg4vf5i/XBxaczxPr7Pief8xU6wQIc 6KVrp/WIzJDKg7upppyiybuQCHosqN1lg3jghQdPU4fVniAGbmhQLOJqBivHcpXxc022LDE2cTf+6xOP gBWzgIEfFE68F/FLbuhhPiCObBQHUpM8L3EB3w08/lIWnTI1HR0ac5FGtWh4eQWQT7LV8t3fvn629zfH IUpRw/L8wpeqc5w6meMG+dAmE4/lX52H1hq7ghgx5k IP9upA9OEmXDc3dOfJ975kfLAv1ABIGn4HRUNtw6EygphK9XXJQU018nsthiVsEIPBDmCK0VBLycBDvM kiSMyP7Qc2aIkBj6ym5Q0WhvG+cF3BM1exSQiH325h1AEwVmSOu/KwvmqJiEJLo5bA4ZNVxXk5Svft9A Cwkn7tGk+Petrology Teacher/43qr80Sgf95YY3XOGC5OgrOST6BRZP [file] t4oqKjySn+i0ZIuegDkCX9wdN+OCeg84uDdMiP+station agent [file] headline writer+NoQDOUFfu4cDFn7rEjUzOERADRu0w1vxhBNe1 [file] 8GV6pL89iZEY8pYYx2mCfpgf/ftCsn5bpe/RRZ/CHIPPER FEEDER [file] manufacturing specialist+D7QnswLfgzHynVrACHKcV0k70p/Ha0dnMP12OVg34s6EgkZQzmKN6wHZ2lxmdHyhpiOPNXtbeZxu [file] p7GiHVJeXSpxfpNfJcmQPDkbtFDnkHfhNCRZMao9SxQpOM1VUZYTM9A= ID Date Data Source [id number] 04/01/2020 11:15:00 AM EDT [facility] [facility] Name Value Range Interpretation Code Description Data Meche rce(s) Supporting Document(s) EGD-[facility] KZFAUw5dOwZCNbWlIETwMgaVXAvbLFldGEUdS6N8LCbqPc9YLTmrvdUzEFDsZo6+JIAwBR5fsc2eUVVj gMy [file] ipKTR8L17q8dWAZyw1syrppLhm3wBKQKTALfqD/concrete craftsman/ [file] JOSE ENRIQUE+sk4DiNYMkNcXk38+4u8fZgi4mQgV3G2n722M8S5 Q4deg8/xWUZDwUg7Mp2/IzQOpk6vTHxc81Jn7nqqAmHmpqzy5Dxla6p5v6JcA+Y3iuOhDvIpjSwBG+vi +lgUD1PBjqW8qQMcygnldKv1ArSMdXq+3yQM0Ddpft4O3Z2aOi9z5j0Mz34TDyI4TNDjjnRXbw3DjgSy mjagncmcKrI4X3y9rcxF3SW3p1WP6twzjsglwoA/3o [file] /69YHGZd2fZVUorXjUjdnxlHm29i+i4wYeE++Petrology Teacher+oU UgryeWc77sfVCj5ts2cSivyXobr2sKiT/MIdp0NqvIgW9BPRcewWbmpzXboY6xBsUpfSRTk6MDaRlzRE cG5ZSG+VRU9yO0iPMEi+A7FlxKKITuXDgOaK8PN+3kd1omZYnnqA0dTJF3A7HiOvZPI+B6syVfeorHLl 8IerCNx5FSrUvMCz1miGIo6gbeC08TGjOdUUC31YRQ n3ZbKlFbBW9VSySBVJncKqBpe5aiE0GMEA+ZtmBvuypw9EPHeddFZu29nk2j8KqhsoS2z1lSNUnH1X34 89MXd8Gnadnap837hIoXn2abD9YheDs8uwLjaAXg0PXluNIMvbh1dDS8ToIqCDp9nBTYTwtJMsWDzn5G W3ZTc6pFwXUfWPicTvP4copkMifM9FudTgRpmhzV9z ek/uid30R7kPsOeXS65oRZyFzFu0o+e8W3q1xKchGojrXhJAk13ra9APc+O5/AvFWveyWwrfButiHFD9 hbWs4CLfvPbzbCsu3s53xoMlngsRM+vXMPgk+o6wfVw6XB3t18zYFJJxI63hXvN2pc4fT3LVixU/I5uJ XNUd9ng/KdofC+DrXgOhAHPeFvLpSlLDZeZ1YCm4lD nP8YnyXLe/Qj5QJYuJxC186djWVIp2vk7Vf+sQ3anHe43RotH1zNINHEXkz3c6nPhA2XgxYqsyxGiD78 gAh1Ck1KNr0/c4knT94LdXXP2xs4YeRAeeOCz29iV++TKuXrUkN+P86hRnLixh8i/IZNNtp9IhFaxX2t mr0ZiMTgJpzw7wLtjlln5Qz9Y78boM7KPo7LMXj3f6 +RD3CZiozy+HrfMeS2Y4IEoZHgLJYWBReHgHhuZ3p72o9uHBdT5EOe6aSMrdbLS2w7+GUILLAUME+xm+oPaJiv [file] 9yR/frame [file] steel welder/Mj8NCLxtbBYrbMbb7Su1EocoO7Tj/4srBXqbKFybrbjqA43GtrJ/8v51ZxkQI2SUhr+fettta0VDu nvqjPjoc9/b1PZ/tdeC7hlW+fE1fARFa8yDysDiMMB 5fHE2EIV26AME2ru4FAWERaJZAa3eqjSLIKJarJ/Ehu1c30NWzzvGTEnohuGeTwQMHR2v1pZWjjqJUJN Cr5lHLINExB6TezoFlQeb0KnaUvnTDZDt3dFAk6LxysfiB1uOLxBwqViIhhmdQRN93HP2b4e2z+pvI1s gCl+bfGqIZf4cJh+u/HDGOOPxNYIylreVKC+jvsKNd 6Wzx6FwQvg517RbK+YshvmaUxp5xRONoW644YjvCALwHuLcU8DKXz19UyW3LLxK+1chSMV8KhNz5xt6t If7+npAQXKHFqRriYMVd96AVZ51TFF36nDJCezyZTE3dgYFHNKjrcEvzh/uyfiui2u5to3ZzIAfeCmPa FLoJXT1/007DDTeNgFjl1YTWbYhEyf0B9O4dC5HXxS R2DfqbAj4Uavv0TdxiYy7+xL1sX3Gh1k2jqW6FiQgh47SSgidxGTXYeK26JKswt1yZCUigtzwrUwLciW YNGchjK5+E0DKbAu0OEnKPzCMb4OORm/B4waa/Y9707B/oFLCNzMBEpxThMYJr6U2gSVrrJT0lmve5xG cristin/aN9UzhyrNyGmP2dCx0zrc2VO/epwQ3ggWML4N7 [file] JNzuQcX7NCyswDo78DMvtLYLlHXwNjeFGbaWApSaCa4iJa+ZnCXhx0xilMPPfoTxGZUVDHdt+6aTe+PEST CONTROL PILOT [file] 0CfoUGecwlPjD7WjaR7i9qhxaO9vlWZ+SPECIAL NEEDS TEACHER+rujaAS [file] 7qnMGszZHO+k65iTIomhX7+LLhQmHKttdFbEmsO+steel welder [file] hPqrVhobYc3/OlfbyKp7srk3Ts/hourly caregiver/oy0756CDbgTafLuKVjTw7vAm6XV8HmCnRYl9EqbfdpB7vIuU0s sMdkx8jJLAXgRlCx1MPE1U66MK9+oN8IXd/2fpgadY ZItYYSOh6dDCjwXezJpo+n2ommN96HFh18lcULCgg7j92IyPqg0OxTmySwHVFVtqyitW8eJs4z5fYNZ8 dixon/flnw2seJampWlgXrVckxYVn6J3KkwRs3bkio31HKTXqY4hf/mtpWqIjGuTpGWjQLy7a5vzTX99y3V [file] Jose Enrique+Mz2pDmEyc3ccBGCvoG6Qxs/Jy+0p15cvIxZ0/zhj+ILHl3wTr8/UGYtDJ6lI1PO0W90k2NHBrf9jr [file] C3tqr1SkqD8ttD+computed tomography technologist+UQrWj4299Y1tNZ0zJqmdmSLGUl4fVb9LJJfIcss4kmC80FXkQmxyV3Cx1FL1q1 [file] jose enrique+Ur9p+35QPP0jbYSdCdaMXkyDepN/nAW3akgULWIm7uUjL2W5+J1eLAAI3wfOMHf0o8sK5z1wkF1nl [file] BlP9RIJOf+QaXes5246xmrFRCMykBHdru+aWdeBwSwmge9vqEaxc43jqnL7Wq2fFrtiap75zH+mZ+Rose Mary [file] QnGA1jvj4EXtA5UFY2tSGtYe5TNKXeWIL2KMapJNIBCg== ID Date Data Source [id number] 02/04/2020 09:15:00 AM EDT [facility] Name Value Range Interpretation Code Description Data Meche rce(s) Supporting Document(s) First [facility] NGSTGy7gWiNFAqVsIUWgIjyUEGjcWEiwSTLgB8N7FLdrLt9GFNhxwrLdFJYoNf9+NWLaBK0iau4jIMCh gMy [file] FterLR/PEST CONTROL PILOT+KB4e0Hvg/qCk/bfrLqiUZSFCoN2zMvKghoU8gKHcmqCu/qaR1fpwaP1DK0O3CHNCZXMV7w [file] vjn7vvq27WM0yDQ/NhttI8TN6nh97YU/SBjHrRvLGp/Q1N/ROACH/dsxFthVxj/88IlEsBajug0lTaANnsO +dwO7WYZHP4mjCQTJwX7OfK8TO/DXuU3di8wUJUT70 +xcTU2VkxCN4zknK2EjrKNDh7kkBrfMALymXnBJ1+vuYS131PHb0d+stze1sQy3Lfpo6ZhhFzpmkYtMu u5gifHmx9ZW9WgBh+KRfVXl9gSrDyEhadXF7okdhfnboXLjuf0QzK/jNsVcMH3XKVQ7g7GMn04hPXv1e Rbm26GkXDo72MwUZJ1ZzLdW7maV0e0jp5IIuYXf3OZ GelS34igpz3amlQ4WHGRHVMPCcGQ85zEI8xz7hE9FJPt1d3lVxJ76BHfNrUqnAjLFB4qlbg734+PAN7C 7/4QGNIpc/gmZ5XP7PA8wwwn6Nw/VHWxd9jsgwpeqHfyqArA1DxgiOfJ2/jfe2ozb58qiYYh1jLQe1Rj dGbGqJHuAnQaMe5ysvoxBR8Gl87I7mY5Gf9eHs7Eo/ OxhOMsdB1jvtZ0qvh7EpH1XIwsbMpKsLeW6+bPSQpvY4tXbHlQKHYZsPwaqT8XG10Uw5CT7plqCLITQ0 9SUTXkFRvoU0DRzkNFe9CjdEvM1nl5FRGgAj7AvM/iQef5/CKatCUapKxtZfhgeGaA3mopzzV0UKdtm9 r+n9PD/4/v6XIRAl16ZZJapKDE7DGkNtKMlpk7HcdD LuPV3DOo9AXSPZcKcEllsC8ZlanO2OIViwPgXg+yEXkWTtpJYIFlnhAzdZPzrkab18vEXAGTmAF0/B32 W2zph3bbvcoAr464+WIzrAD/MYtvOYCufXEbvP/1N1nejWpQmL4ghE7TggXpg842/S1psdiK/J2cqS1A 7W+KBvPtRddGKvVhEzoyWqHImnEpv1QMIvLPiYD3/H y3Vj73Wyclf7a798FE/WU6xWAvA1opFQZ4+wnRq84v7O7X9TppmPW1PWpwoHuyoIHUFlhatj1+FaITs4 4KTlExUkpoie6EpXrWlkMALmNuh5cafINez+ccSWP5NI1f6ovs/DImQj8Fl3zI5Z+PEST CONTROL PILOT+6PdcrvQhMLI9 [file] 0N+3HjXvqzkw00cq5FWVd7Dn33p3T7XsFn1tBMv3NxiYAdX/PROGRAM THERAPIST+iZVqK9cwHMsGubtnVigmGq0p7YTDS [file] Tv/QvAKp3fN9pxAntNAAQtMypj66gDQQSMFhX+VEPBqg7P0jwGmdiJ2Q++performance analyst+t6yaS1lG3T7oRX2SS6 [file] oovSJVwznkNCuALPPcAtSbIfY6xR0polksHiOwyv1z02XYTg7XDrghmDfmQSBJ1Wwm5/Giovanny+vSJedvOT7 JGrI6oH7CvwUqke7cBT8P9pNlwLGf2MvONCxQtlYDJ0WOeHJdPPzjD+BrbwwMGCiD1CVuqzQeaHCw008 jose enrique/H3GReCOYGhazoAhOkoMg4mPvTxYz1zEqdNJzEyg [file] 5TeHVuPrbzij9tyIAeZILP6uU0tMkonUQT+L/ADy6lTQEuC6RtQ48HuBPDyBhfBZKe8seth1XqjF+IRONING WORKER [file] wUG4BjH8dDjXfWpxQgNo3qY+funding specialist/IYi9YvgpImja5Y5VVtnASUKPDL3iambz0vxb4szxuxyN79c0AQgO [file] Shefali+c6sxOu9HjqyhKu/kE+ZJxqXgwjLz1gu4cROsLlTLtkw484NmHsy2CpCiHSC3HwHRRiklCleWKA6+ GSBzs/SUE3GqvtOvqJNpszeBy6sIFP/Nx1+1wlIlV6 kcaVf3VMZt0yhq50E18qg6QNZ48LT3Ws7FTK6HLl221LHsTRtV5B1+f44fO1kRlgLMrJnTNq5FjjSnP0 RKO+nsrM2vol4ZvdaByEvrq3Ki7C4MXxmIBceYh/CeoxJ690EKK/bXJhwXi9E6Zrlco/QWhxw1JAyBb9 Dh0KuJFZiUniWLBTHL9lfdE7q6paWGCeK4pr9eVQeu OdzOrrhCHMC47/RCiFDJ4zDtATlLmwWIUk24moqkzj1BGY2Nm0+et0bWh8N9qC7GP4J8YRGKw4+sSs9o yH+ELtwIi9URjrt4CwmlKmvp0alMH5xoneilB5c+F+wjst1i3imEN0gd0H+P+yF34Sr4rfTnykLHCFB2 MzKOCkrbRCUOLq7yzZZWRK+bsNahDwFBbKTu2RkYxm fHcAfyI9OIO0cWtwDxq9vfsffoANOtibJ7UtuvOCUiox9flpTb8pyTquTKnUpgW7Skq3x8Py4ue1GhwR 5XJiqelsg+Wpf6ma9/cPbEmy6lL0qLvfwzhCiDtlBKMAGXIIXG2uJconWlOdSmmXI3JY7p8VYlGPfT5u software development coordinator+xBriqgeypGJDMWRB4/I/wHbpZYOusRnzN53Wxn [file] director of athletics+WWDb0ujfnSwlTQUApJdkENyEUctPqy2r76CX90 4RJkCv6Kku0JG+ioxDhTHj5YJyfYqrTGW5Bo9TJqds92ZGMW2hTIFavL5Tk5u/f+bykTBi/p3kbJe591 z88A7Kdd8cqkG/vv6xmjccgsNYfpwJwGmpsjrMVu6PasI6Wc229Xba2sYjFqZpVtVYh2iHagEyoSUVY/ EtXxyW8nJ4VrkFFi0T5GgZRQSsYf3JGX9+6XWkpc7e QyWDRrrHKUUHH3sAW92JE6sV4Oagcecf0nwutQO1fpdgI5k8IUvlUpyWriwQ3uBpVIMtJSnb9cq/5wZc MqY7qXnUS477OfrTYYn+PMXKFdV+Lkest2KLRZxKAbOseuaN4ufNoL+nr1EgpN5D6M/P793R5edPohZ1 OGCzTcdVBS/1syoPKm5/b1D/tRbRBP6k9h6iX9hJMf +WGpEHh6/wv+Mcn/+mR6UEVYXejBf8QCb/OGXB2G/lBhF/d53/v6DXIDQC/iLgpF/2+jD2b+3zgl9kxg 2W06G8bSPu4R/q/PS9xWWsTyLyxH9f5/hq8a8os2XZOhevW2FvWkUOVdMKPsydbFDvXxI3Tc2GtrWKvk lZfUpvFdqNYyeiYlgClEhVWTWdr8PBYxkA0gtFeU2n DHMrfmqH1RnVpXC48pA71GM8uB/n312EaBygeX0lq131s18pJe5ZzgAkqwpLdHeP2QaQ1QEIu5P8GGCI Rf3cW8H09M1temWHguwrt/BlWifGTxh2SX43WlLIBEX/Hr2FGeNpG2+F3VW7IDnFv5g709mN3nCUCBiP yb+ZE6+1Z8rr/FOxcaB2oJ5vFHFWQqDThB5pzrR9OV Z9iaM+DfSilvjYL8DF3ivw/kjzOGaPhGa0OL8VKq35y2zNIfcsUN5Sgkga5ZvgAt58uuibAmMsi9+uQ3 U72CGOtPi/Y4c7To125/4d3iXKsfrFN370a0WiOj3hh8z4jGHabN48e41P9J+gp162GzB9Ws2Bl3TI08 [file] Jose Enrique/hUFElmN+75M60m2J8unPNPaMnQywaVYclGCv9x0HNKoqzrDc6VadhOdsG5WF7uKM1AZGOct0dRqEI VQgCar+VhNTV7dhhWtO0qyQpsiAcPByMrgRuHtUCB5 OqTIRPZuk56Aw7y1Bx7VrrVOlUHQywGQuqg/FujpsEH873FNQaVw/SsvZO4mY/m87hJCgYRL8qxF1UdA IVlqtu5dbIM5DSV4oQXbg5Kpq+oBnxmiyhRVV4hRKFH4tK9j4X4z525dFVXIF+np5wpDw5OJCJQ0/Vf9 vNihxb89uEviQvAhXxCa5/o0ihzfUrgJcpl3WbaZTa q3GCUEB7uNrxilOdzAfaAgZPD7cKMJFqdrCKxnjeArok0JCODS6raGcVgmiYyJKKX5Jcpfd8VKyT7jih Sj8F0fspjyt5KiXXqOVzdw1KXtCPslVne3AHJDibcQY5vfdafhQjSf5nNc8/17uCcf2O3hrzg9sWDsoq 6UDaKgd+OMwcSPwpUkvbkQ4nEHoIZYYd2gIA5XEF5H +yNk2gi22y+GiEG2Jul1hqDrt02LwKq4KlbrX6PtpYyM2gtPls0FMBWwk4oOHf2MMTg0E6fWezLHJU3o CdadEGHmmj7+3LAU8OuWGj+0ioSl1YyesyzLWz2rsnAVCy+KrCklEHJI72VIzzAN78EBWiciF6mzOakf Ynag06t1kL0VtqNnV4QB2O2/gqXjcvXzibvHZ7upbt bc+Chaka/T1yd7QDOMqhw5bIdZipmoAEN/LAEEW5I5q02Gb4rQEcDNoEh1Z7UeXlxHipxrMrsOrSCjudRX [file] VQF6OFAZYNYZTm1wXeFv8254ZXPZq4Vx/v6xYYKAs+ n28pfY7n+a97tVNmYhd7k8v79/0Uc24WYZnW8G+q/1H9j+p/PEST CONTROL PILOT+j+n+Uwwg5PCL/INu643isuvsvhvES [file] /Khloe+TW2nNMsFHw1SdYs9NK27TrWAEL6yHxFxXPm5BipPRIN+5Rn/rLFssgBAwEd48/Ey8VlqoNDOJ0xN cd7foPYzS+pd9g7cKLb7LvU9QvuN24snknrsRpokNT T0PsdQV2jRi3vQcLdqBUphpMzjP7SXb7wvyTWTiwgU04Im2LMDmd+OSvd0VQRHvIEbjuT23uhoAObl19 avVH1WrI+6xsVnwfwWVXcBr46qfkPIORuRTovR7xIdZNOqz+31Gw5FvWKy1bLmTfMDC77MOqxPJZ3C3M SmkefbOYXyxfWk9MQip/sH5SQ3de8RHBUtjAt5+A8M 8pq9NCSrSiyrd/w/HKvQ+dD6710ojsj6INb0Pz/K/CrE/g3v591beVO+lmiUTLOvUM+wpvQP3alkXWLL BkKvfyjD0nyM1hEkKFMhTS5Li7XyaXkDUhTl5h4BfBS4kqknuIzYsVHx4UMr7nWgqN42AjQkUdpmGW2Z 2rfptJLRg0KM7TOZbnT4GdFJ2ai6aukmq2u9Q3/35o sC2TVkWXsXllffd8hd9WiDEt03Ow+mBGaNoI4q+/s14gW7rS0W/YlKvcjdbFvced9tmCrb3iPsS1juq4 BFNpFB/ZN2SARPDAfzfOwcf/kd10qfOuLLUTPuDwOiyrGx2IQ0WF/53JCkB6w0KGGI17teo3EUoekaeh AQx9mbA3UMFT+2qU+1q7/RjgvlZ+D42V5JyHKzU+Ag jO67ejmZByMZUYhtELcfx+3GjJo5oDcQs5ZwGb0wOt6iPr/A4XHHqnG8htD/FODgshhORjna3k0T/lmJ 34RlykMdolqKeo9VBx2Ovv1A6YZvF1VOH5tn4aF5JpoWGbT9oi1cOIfuKbrCUXJzJ/cYhhH8fyyqmqiB edORoGic1mCkCQF45hrYlyzAKFPZOFHrTre6/DtbWc DJ2f5XjZ6PgwzaBb8J+WH9Is60dQ1Jt4NTWX25VM7E8Sqa+0JpCkK/DRDjN23C+zMNYycvPTUHTapnG4 jdLvapHObEUI1uRpiZ98uc24LptRJ/Vice President Diversity+Ee/zBCfm4iqoeF8jegts56AwuK1QzUvWjioSAt4Tiy6TJ6z [file] EbUV0wBJs/0c5cyFxG9YsZ52sWFZyoF8XqVHeHSzsOtbda/mNyEYQFvBc0TZdV/H9X7kZmg0FY4W/computed tomography technologist/ [file] IMIl1PGPpO71R+h5LgkwxFGFW1qjpfYx3Frt/hlC8amKVd+ejdg2LmJDRfTxKoD6x+concrete craftsman+ZAiO4aoTEFd [file] uJPa74bcFRxLAEfHvJdi5MMO5iw6RqHDZoMGsmpv XbKsiZJVvprTNjxVxmAIELQww1SJQ2DU2PFCPVN1I= Procedure Social History Code Duration Value Status Description Data Source(s ) Alcohol intake 09/29/2020 12:00:00 AM EST Never completed [facility] Smoking 09/29/2020 12:00:00 AM EST Never smoker completed Never s moker [facility] Smoking 08/31/2020 12:00:00 AM EST Patient has never smoked co mpleted Patient has never smoked [facility] ([facility]) Vital Signs ID Date Data Source UNK Name Value Range Interpretation Code Description Data Source(s) Oxygen saturation in Arterial blood by Pulse oximetry 100 % 100 % [facility] Respiratory rate 12 /min 12 /min [facility] Body temperature 36.67 Lesly 36.67 Lesly [facility] Heart rate 48 /min 48 /min [facility] Diastolic blood pressure 80 mm[Hg] 80 mm[Hg] [facility] Systolic blood pressure 119 mm[Hg] 119 mm[Hg] [facility] Body mass index (BMI) [Ratio] 35.12 kg/m2 35.12 kg/m2 [facility] Body weight 98.7 kg 98.7 kg [facility] Body height 167.6 cm 167.6 cm [facility] Oxygen saturation in Arterial blood by Pulse oximetry --post exerci se 95 % 95 % [facility] ([facility]) Oxygen saturation in Arterial blood by Pulse oximetry 97 % 97 % [facility] ([facility]) Diastolic blood pressure--supine 68 mm[Hg] 68 mm[Hg] [facility] ([facility]) Ra Systolic blood pressure--supine 124 mm[Hg] 124 mm[Hg] [facility] ([facility]) Ra Diastolic blood pressure--sitting 72 mm[Hg] 72 mm[Hg] [facility] ([facility]) large cuff, Ra; 128/74 [place] Systolic blood pressure--sitting 126 mm[Hg] 126 mm[Hg] [facility] ([facility]) large cuff, Ra; 128/74 [place] Respiratory rate 16 /min 16 /min [facility] ( [facility]) Heart rate 64 /min 64 /min [facility] ([facility] regular Body mass index (BMI) [Ratio] 36.6 kg/m2 36.6 k g/m2 [facility] ([facility]) Body height 66 [in_i] 66 [in_i] [facility]) 5'6" Body weight 227.00 [lb_av] 227.00 [lb_av] JASMINE T ([facility]) Patient Treatment Plan of Care Planned Activity Planned Date Details Description Data Source (s) clopidogrel 75 MG Oral Tablet [facility]
[2020-10-29] MEDS ORDERED: POTASSIUM CHLORIDE 10 MEQ SR TABLET PO ONE
[2020-10-29 00:51] LABS: DIGOXIN LEVEL 0.5 NG/ML (0.5-2.0); MAGNESIUM LEVEL 1.8 MG/DL (1.8-2.4)
[2020-10-29 01:45] VITALS: BP 185/117
--- OUTSIDE RECORDS SUMMARY | 2020-10-29 01:52 | CCD ---
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 Name Role Phone CLAUDIA, A PAU DO [...] Unavailable CLAUDIA, A PAU DO Unavailable Unavailable CLAUIDA, A PAU DO Unavailable Unavailable CLAUDIA, A [...] Unavailable Paty ESPINAL MD Unavailable Unavailable Paty ESPNIAL MD Unavailable Unavailable Paty ESPINAL MD Unavailable [...] MD Unavailable Unavailab le BENTON (SINCERE), Og RUSSLEL MD Unavailable Unavailab le [place] (SINCERE), Og [...] Unavailable Unavailable Kate BENJAMIN MD Unavailable Unavailable Ktae BENJAMIN MD Unavailable Unavailable Kate BENJAMIN MD [...] is protected by Article 27-F of the [facility] Public Health law. If you continue you may have access to information: Regarding HIV / AIDS; Provided by facilities licensed or operated by the [facility] Office of Mental Health; or Provided by the [facility] Office for People With Developmental Disabilities. If such information is present, then the following [facility] mandated warning applies: This information has [...] law may result in a fine or assisted sentence or both. A general authorization for the release of medical or other information is NOT sufficient authorization for further disc losure. Allergies and Adverse Reactions Type Description Substance Reaction Status Data Source(s ) Propensity to adverse reactions PHENAZOPYRIDINE HCL Phenazopyrid ine Hcl Hives High Shortness Of Breath High Active [facility] High High Propensity to adverse reactions NITROFURANTOIN MACROCRYSTAL Nitrofurantoin Macrocrystal Shortness Of Breath High Hives High Active [facility] High High Family History Family Member Name [...] AM EST - 09/29/2020 11:03:00 AM EST [facility] Patient discharged. Attender: DREW SOTO) MDReferrer: Jackie ESPINAL MD 09/08/2020 08:20:12 PM EST [facility] Outpatient Attender: LADONNA ESPINAL MD Main Office 08/31/2020 10:15:00 AM EST [facility] ([facility] Outpatient Attender: PAU TAYLOR DOReferrer: PAU TAYLOR DO [facility] 08/26/2020 08:52:00 AM EST - 08/26/2020 08:52:00 AM EST [facility] Attender: DREW SOTO) MDReferrer: Jackie ESPINAL MD [...] 01:00:00 PM EDT - 01/15/2018 01:00:00 PM [facility] Emergency Attender: JULIUS LANDA EMERGENCY ROOM-ER 08/17/2015 03:58:00 PM EST - 07/08/2015 09:37:00 AM [facility] Outpatient Attender: PAU TAYLOR DO 03/30/2015 07:23:00 P M [facility] Medications Medication Brand Name Start Date [...] saline flush 0.9 % injection 3 mL [id number] 09/29/2020 02:00:00 PM EST 3 mL Intravenous active 3 mL , Intravenous, PROTOCOL, First dose on Mon09/29/20 at 1400, Pre-op
flush per protocol, D/C Main IV fluid if appropriate
[facility] Medication administered onsite sodium chloride 0.9% (NS) infusion 9763-2290-50 09/29/2020 10:00:00 AM EST 75 mL/h Intravenous active at 75 mL /hr, 75 mL/hr, Intravenous, Continuous, Starting Mon09/29/20 at 1000, For 2 hours, Post-op [facility] Medication administered onsite iopamidol (ISOVUE-370) 76 % 91530 09/29/2020 09:01:43 AM EST active As needed, Starting Mon09/29/20 at 0901, Intra-Procedu re [facility] Medication administered onsite 1 ML heparin sodium, porcine 1000 UNT/ML Injection hep angelito (porcine) injection heparin (porcine) injection 09/29/2020 08:55:09 AM EST active As needed, Starting Mon09/29/20 at 0855, Intra-Procedure [facility] Medication administered onsite NITROGLYCERIN 0.4 MG/ML IV SOLN [id number] 09/29/2020 08:54:52 AM EST active As needed, Starting 09/29 at 0854, Intra-Procedure [facility] Medication administered onsite lidocaine 1 % injection [id number] 09/29/2020 08:52:02 AM EST active As needed, Starting Mon09/29/20 at 0852, Intra-Procedure [facility] Medication administered onsite 2 ML Midazolam 1 MG/ML Injection midazolam (VERSED) in jection midazolam (VERSED) injection 09/29/2020 08:51:55 AM EST active As needed, Starting Mon09/29/20 at 0851, Intra-Procedure [facility] Medication administered onsite fentaNYL Citrate (PF) (SUBLIMAZE) injection 6281-2531-86 09/29/2020 08:51:43 AM EST active As neede d, Starting Mon09/29/20 at 0851, Intra-Procedure [facility] Medication administered onsite normal saline flush 0.9 % injection 3 mL [id number] 09/29/2020 07:00:00 AM EST 3 mL Intravenous active 3 mL , Intravenous, Every 8 hours (scheduled), First dose on Mon09/29/20 at 0700, Pre-op
Rapid push positive pressure flushing shall be performed with a 10 cc normal saline syringe to check the PATENCY of a PIV site prior to any infusion therapy initiation unless resistance is met.
[facility] Medication administered onsite sodium chloride 0.9% (NS) infusion [id number] 09/29/2020 07:00:00 AM EST 100 mL/h Intravenous active at 100 m L/hr, 100 mL/hr, Intravenous, Continuous, Starting Mon09/29/20 at 0700, Pre-op
Start two hours prior to scheduled start time
[facility] Medication administered onsite Acetaminophen 325 MG Oral Tablet acetaminophen (TYLENO L) 325 MG tablet 650 mg acetaminophen (TYLENOL) 325 MG tablet 650 mg 09/29/2020 06:33:54 AM EST 650 mg Oral active 650 mg, Or al, Every 4 hours PRN, headaches, and non cardiac pain, Starting Mon09/29/20 at 0633, Pre-op
"Maximum dose of acetaminophen is 4,000 mg from all sources in 24 hours."
[facility] Medication administered onsite 75 mg 09/15/2020 12:00:00 [...] BY MOUTH EVERY DAY SOLD: 09/14/2020 [facility] pantoprazole 40 MG Delayed Release Oral Tablet PANTOPRAZOLE SODIUM 09/12/2020 12:00:00 AM EST tablet,delayed release (DR/EC) 30 T DIAN ONE TABLET BY MOUTH TWICE A DAY TAKE ONE TABLET BY MOUTH TWICE A DAY SOLD: 09/14/2020 [facility] pantoprazole 40 MG Delayed Release Oral Tablet PANTOPRAZOLE SODIUM 09/12/2020 12:00:00 AM EST tablet,delayed release (DR/EC) 30 T DIAN ONE TABLET BY MOUTH TWICE A DAY TAKE ONE TABLET BY MOUTH TWICE A DAY SOLD: 10/23/2020 [facility] pantoprazole 40 MG Delayed Release Oral [...] EST ORAL active [facility] ([facility] Digoxin 0.25 MG Oral Tablet [Digox] Digox 08/30/2020 12:00:00 AM EST ORAL active [facility] ([facility]) pantoprazole 40 MG Delayed Release Oral Tablet Pantoprazole Sodium 08/30/2020 12:00:00 AM EST ORAL active M [facility] ([facility]) Atenolol 50 MG Oral Tablet Atenolol 08/30/2020 12:00:00 AM EST ORAL active [facility] ([facility]) pantoprazole 40 MG Delayed Release Oral Tablet [...] Ta ke 75 mg by mouth daily [facility] Insurance Providers Payer name Policy type / Coverage type Policy ID Covered constitution party ID Covered constitution party's relationship to bills Policy Bills Plan Information [facility] COMMUNITY PLAN [facility] [id number] [facility] MEDICAID [id number] [facility] MEDICAID [id number] Shaina [id number] [facility] MEDICAID [id number] S [id number] [facility] COMMUNITY PLAN [id number] [facility](MCAID) O [id number] S [id number] [facility] MEDICAID [id number] S [id number] [facility] MEDICAID [id number] S [id number] [facility] MEDICAID [id number] S [id number] [facility] MEDICAID [id number] S [id number] [facility] COMUNITY PLAN 1 [id number] [employer] COMMUNITY PLAN MCDHMO [id number] SP [id number] UN[facility] COMMUNITY PLAN MCDHMO [id number] SP [id number] SELF PAY ONLY [id number] SP [id number] SELF PAY UNAVAILABLE S UNAVAILA BLE [facility] U [id number] Self [id number] [facility] [place] Health Maintenance Organization (HMO) [id number] Self [id number] [facility] (HMO) [id number] Self [id number] [facility] Health Maintenance Organization (HMO) [id number] Self [id number] [employer] COMMUNITY PLAN MCDHMO [id number] SP [id number] [facility] Health Maintenance Organization (HMO) [id number] Self [id number] [employer] COMMUNITY PLAN MCDHMO [id number] SP [id number] [facility] Ar Health Maintenance Organization (HMO) [id number] Self [id number] [facility] Community Plan Commercial [id number] Self [id number] [facility] Community Plan Commercial [id number] Self [id number] [facility] Community Plan Commercial [id number] Self [id number] [facility] Health Maintenance Organization (HMO) [id number] Self [id number] SELF PAY ONLY UNAVAILABLE SP UNAV AILABLE [facility] Health Maintenance Organization (HMO) Self [facility] COMMUNITY PLAN MCDHMO [id number] SP [id number] [facility] COMM UNAVAILABLE S UNAVAILABLE [facility] COMM [id number] S [id number] [facility] I [id number] Self [id number] [facility] I [id number] Self [id number] [facility] MEDICAID [place] HMO [id number] S [id number] MEDICAID [id number] SP [id number] D Managed [facility] O [id number] S [id number] Medicaid Dental P [id number] S [id number] Sliding Fee Scale S [id number] S [id number] Problems, Conditions, and Diagnoses Code Display Name Description Problem Type Effective Dates Data Source(s) 704995719 Body mass index 30+ - obesity Body mass index 30+ - ob esity Problem 08/31/2020 12:00:00 AM EST [facility] ([facility]) [id number] Obstructive sleep apnea syndrome Obstructive sle ep apnea syndrome Problem 08/31/2020 12:00:00 AM EST [facility] [id number] Edema Edema Problem 08/31/2020 12:00:00 AM ES T [facility] ([facility]) [id number] Heart murmur Heart murmur Problem 08/31/2020 12:00:00 A M EST [facility] ([facility]) [id number] Precordial pain Precordial pain Problem 08/31/2020 12:0 0:00 AM EST [facility] ([facility]) [id number] Dietary management surveillance Dietary manageme nt surveillance Problem 08/31/2020 12:00:00 AM EST [facility] [id number] Electrocardiogram abnormal Electrocardiogram abnormal Problem 08/31/2020 12:00:00 AM EST [facility] ([facility]) [id number] Paroxysmal atrial fibrillation Paroxysmal atrial fibri llation Problem 08/31/2020 12:00:00 AM EST [facility] ([facility]) R07.9 Chest pain, unspecified Chest pain, unspecified Diagno sis 09/29/2020 06:21:00 AM EST [facility] R94.39 Abnormal result of other cardiovascular function study Abnormal result of other cardiovascular Diagnosis 09/29/2020 06:21:00 AM EST [facility] Z00.00 Encounter for general adult medical examination without abnormal findings ENCNTR FOR GENERAL ADULT MEDICAL EXAM W/ Diagnosis 020 08:52:00 AM [facility] Z12.39 Encounter for other screening for malign ant neoplasm of breast ENCOUNTER FOR OTH SCREENING FOR MALIGNAN Diagnosis 08/26/2020 08:52:00 AM [facility] K92.89 Other specified diseases of the digestiv e system OTHER SPECIFIED DISEASES OF THE DIGESTIV Diagnosis 08/26/2020 08:52:00 AM [facility] Z98.84 Bariatric surgery status BARIATRIC SURGERY STATUS Diag nosis 08/26/2020 08:52:00 AM [facility] I48.91 Unspecified atrial fibrillation UNSPECIFIED ATRI AL FIBRILLATION Diagnosis 08/26/2020 08:52:00 AM [facility] Z12.31 Encounter for screening mammogram for ma lignant neoplasm of breast ENCNTR SCREEN MAMMOGRAM FOR MALIGNANT NEOPLASM OF BREAST Diagnosis 08:52:00 AM [facility] Surgeries/Procedures Procedure Description Date Indications Data Source(s) CARDIAC CATHETERIZATION CARDIAC CATHETERIZATION Routine 09/29/2020 9:00 AM EST Abnormal cardiovascular stress test Chest pain 09/29/2020 02:00:25 PM EST Chest painAbn ormal cardiovascular stress test [facility] Chest pain Abnormal cardiovascular stress test ECG ROUTINE ECG W/LEAST 12 LDS TRCG ONLY W/O I&R ECG 12-LEAD Routine 09/29/2020 6:47 AM EST 09/29/2020 11:47:57 AM EST [facility] Left Heart Cath W/Wo LV & Coronary Angiography 021 12:00:00 AM EST [facility] ([facility]) XTRNL PT ACTIVATED ECG RECORD MONITOR 30 DAYS 09/08/20 20 12:00:00 AM EST [facility] ([facility]) XTRNL PT ACTIVTD ECG DWNLD 30 DAYS PHYS R&I 09/08/2020 12:00:00 AM EST [facility] ([facility]) ECG ROUTINE ECG W/LEAST 12 LDS W/I&R 08/31/2020 12:00: 00 AM EST [facility] ([facility]) Results ID Date Data Source [id number] 10/26/2020 12:00:00 AM EST [facility] Name Value Range Interpretation Code Description Data Meche rce(s) Supporting Document(s) SARS-CoV2 Rapid Antigen Negative [facility] and reported by [facility]. ID Date Data Source [id number] 09/29/2020 09:04:57 AM EST [facility] Name Value Range Interpretation Code Description Data Meche rce(s) Supporting Document(s) &PDF [facility] PNOBPg8jCpJMYjWg20/ODAytQQKam4ZbRJeuBFg8OPepQONsF4VciYhtXXYVX2iIWUmQMWKUTpqVZGWd vci [file] Sm+wZlSVqWa/wB26YcRFN1B2UPwL35jHdo0jHC4OKbweQXjOQpaQYRpW1Q8R4bk1pb5uISybR1H/[facility] [file] Cj7Jk7CryoM9jaBhPTp4JGJ2ZW5KCEQQI0FQSy== ID Date Data Source [id number] 09/29/2020 08:05:16 AM EST [facility] Name Value Range Interpretation Code Description Data Meche rce(s) Supporting Document(s) EKG [facility] IOIXBo6uXkGQXwLov7XeRrVnZBYiIB5rbch3K7B9kOCwI9IvtFFrm8nmW5WuX2AzROKqNUWXUP4ZjBNv jb2 [file] MDkgMDAwMDAgbiAKMDAwMDAwMDUyMyAwMDAwMCBuIA gfZQLiIJOjVqXjWVEbUSNyXI9kElRfIHOqMBP4TLDsNVAjSVAewcUTYFLoVMVqPRe0RYUaEVDzETDuSX coUUBwGBJbWYJ0OFUdQUJkBX0qCsBvZOJyAFVjNSEsDUJlYTXmxnPSHMPzKQHfMXP3WAGfVIZqXHZxUE nvQDAaZADoHko1NIEmWYUiOC4gLyGaODHvPTI8GXFa MZJoNJNmgcVMETZxNEA6JRGzWpRhEIPrLNHgBYuuYRDyHZMpHrL2RWGtWTTrCO3kOiTwEYMsLFO1LoXg OKWfLHDmqeLKRWFcXOGhVUG7UjJlOZUxRTUcZVobQTPtQBQiUZKdFIC7QYL8HFRpTiXyWTpaBSVXCDpY P1RwsgAyXrIAL7mgDu3vLaZpVYQNP5Zqx1DcUNTrUGEAKn5+ReN0ROE6lBKvSuv4IJM6EfsoNGVUXy== ID Date Data Source [id number] 09/29/2020 08:03:00 AM EST [facility] NT INFORMATIONPatient MRN Name Date of Age Gend*PT [id number] Deneen Ramos 1965 55 years F HOPPT Location Admission Date/Time Visit ID Attending Provider09/29/20620 --- Desirae Benjamin MD([id number]) EPI ID CSN Admitting Provider [id number] Desirae Benjamin MD([id number])Updated H&PPlease see the scanned/dictated outpatient note.I have reviewed the note, clinical history and physical exam findings. Therehave been no significant changes.Plan as outlined in the outpatient note.Risk/benifit/alternative of cardiac catheterization was discussed withpatient/family. Risks included, but not limited to; AK, CVA, , renalimpairment, vascular complication, and need for emergency surgery were discussedand accepted by patient.Desirae Benjamin MD, [facility]IInterventional High School Social Studies Tutor Name Value Range Interpretation Code Description Data Meche rce(s) Supporting Document(s) ID Date Data Source [id number] 09/24/2020 10:00:00 AM EST [facility] Name Value Range Interpretation Code Description Data Meche rce(s) Supporting Document(s) SARS coronavirus 2 RNA Not Detected [facility] This lab was ordered by [facility] and reported by [facility]. ID Date Data Source [id number] 09/23/2020 04:32:00 PM EST [facility] ([facility]) Name Value Range Interpretation Code Description Data Meche rce(s) Supporting Document(s) Glucose, Fasting 98 mg/dL 70-100 Normal (applies to non-numeric results) [facility] ([facility]) Blood Urea Nitrogen 14 mg/dL 7-18 Normal (applies to non-nume nalini results) [facility] ([facility]) Glomerular Filtration Rate Laboratory test result Normal (applies to non- numeric results) [facility]) <content>Units are mL/min/1.73 m2</content>
<content></content>
<content>Chronic Kidney Disease Staging per NKF:</content>
<content></content>
<content>Stage I & II GFR >=60 Normal to Mildly Decreased</content>
<content>Stage III GFR 30- 59 Moderately Decreased</content>
<content>Stage IV GFR 15-29 Severely Decreased</content>
<content>Stage V GFR <15 Very Little GFR Left</content>
<content>ESRD GFR <15 on CUSTOMER RELATIONS ADVISOR</content>
<content></content> Creatinine For GFR 0.76 mg/dL 0.55-1.30 Normal (applies to non -numeric results) [facility] ([facility]) Sodium Level 142 meq/L 136-145 Normal (applies to non-numeric res ults) [facility] ([facility]) Potassium Serum 4.4 meq/L 3.5-5.1 Normal (applies to non-numeric results) [facility] ([facility]) Carbon Dioxide Level 29 meq/L 21-32 Normal (applies to non-num julius results) [facility]) Chloride Level 110 meq/L 98-107 Above high normal [facility] ([facility]) Anion Gap 3 meq/L 8-16 Below low normal [facility]) Calcium Level 8.8 mg/dL 8.5-10.1 Normal (applies to non-numeric re sults) [facility]) ID Date Data Source [id number] 09/23/2020 04:32:00 PM EST [facility] ([facility]) Name Value Range Interpretation Code Description Data Meche rce(s) Supporting Document(s) White Blood Count 3.9 10 4.0-10.0 Below low normal [facility] ([facility]) Red Blood Count 4.28 10 4.00-5.40 Normal (applies to non-numeric results) [facility] ([facility]) Hemoglobin 12.3 g/dL 12.0-15.5 Normal (applies to non-numeric resul ts) [facility] ([facility]) Mean Corpuscular Volume 90.7 fl 80.0-96.0 Normal ( applies to non-numeric results) [facility] ([facility] Hematocrit 38.8 % 36.0-47.0 Normal (applies to non-numeric resul ts) [facility] ([facility]) Red Cell Distribution Width 12.6 % 11.5-14.5 Norm al (applies to non-numeric results) [facility] ([facility]) Mean Corpuscular HGB Conc 31.7 g/dL 32.0-36.5 Below low normal [facility] ([facility]) Mean Corpuscular Hemoglobin 28.7 pg 27.0-33.0 Norm al (applies to non-numeric results) [facility] ([facility] Platelet Count, Automated 196 10 150-450 Normal (applies to non-numeric results) [facility] ([facility]) Neutrophils % 44.8 % 36.0-66.0 Normal (applies to non-numeric re sults) [facility] ([facility]) Eos % 5.1 % 0.0-3.0 Above high normal [facility] ([facility]) [place] % 9.4 % 0.0-5.0 Above high normal [facility] ([facility]) Lymph % 39.1 % 24.0-44.0 Normal (applies to non-numeric resul ts) [facility] ([facility]) Immature Granulocyte % 0.3 % 0-3.0 Normal (applies to non-n umeric results) [facility] ([facility]) Baso % 1.3 % 0.0-1.0 Above high normal [facility] ([facility]) Nucleated Red Blood Cell % 0.0 % 0-0 Normal (applies to n on-numeric results) [facility] ([facility]) Neutrophils # 1.8 10 1.5-8.5 Normal (applies to non-numeric re sults) [facility] ([facility]) Lymph # 1.5 10 1.5-5.0 Normal (applies to non-numeric resul ts) [facility] ([facility]) [place] # 0.4 10 0.0-0.8 Normal (applies to non-numeric resul ts) [facility] ([facility]) Baso # 0.1 10 0.0-0.2 Normal (applies to non-numeric resul ts) [facility] ([facility]) Eos # 0.2 10 0.0-0.5 Normal (applies to non-numeric resul ts) [facility] ([facility]) ID Date Data Source [id number] 09/08/2020 01:00:00 PM EST [facility] Name Value Range Interpretation Code Description Data Meche rce(s) Supporting Document(s) Follow Up [facility] VITYHp9hUtXPPuFdNJEwSdmOZJkeDRehJJKgB1K7BCiqDq2GPIubptSdPZRdWb4+TJRoZY3tux4zOZTt gMy 6vWNSiDoowC1FkIXGdu69SLXWdPDcMLxPfCjEvXuG1JMc4BNY0XOD0BpCvNhwbNV6bDRS2MCSnAOiuKC EoQJThUIQ6RIAbCw3mJFztZZdgCt9QKO8qi6XqPILqMLZoQpqKYVhzHZjrGLTsSOXzFLUbM827wgKeJN 1EcWRwJJx2KEJpVmB1ZSKhXpJ6YUWvOrZuPuQaPJVy A2Cff291xeMjfnW4XN0FL8GxNPT7JDj5M3gjQiMwWADhRYTlNY8pOoD0XSIzSq0BpGkmIGHtROVtDg0H jYt1JXC3FKIlWn8+Pj4+Et7zaxBoQniMUCHkAH5pqv78YC0AeDYrRF3WEDhoW20kMTdwLe65NKdcIMCz YxBcLYp2Ha6zHqFti6ZnS5YaUSr1L5qZBeamJ1UcLJ jbTL6tGRI6PMUvRy6+Ek7hJSLnET49VHImXIWJB1UtqoNajxUgMTv3QHWbMk1+Xd4nvkGoYvlGTITgHF 6xll55PS3LZP2pvFzxHuJlAvUvO87igLQzJ4lgGvRsK3WprUqfDZEhXS0xU2AeONirFQOkCE7pcyFtoO 5VjDk1BTJjYh5QaKQ4HOEvC95aQIPyUOHDJBSkm4Ha PJ5Dy2ozcnPyXXYpRD7NXEBoG3DOR1ZbW5ukiQlhGKDoZA4QTNwwaSIpELo1FO5SeRLjHFRlX94mqO4r TU39QGo+RyZ5nxMxyG0RbHfkj4BZCN+531z5KafwA0TuP+7aGVLCjKsP9H0nXUgMIQorNQm3g3w8llsB TonYoiwR8PLVBqvJiBd139ps43ZWG0/YVbuqvruqnl jOjtrL8Vj2kWZZMAHNOSFSUV5ZPDFVZSLl9VF1YvJ91am2kAYEWFLRkKIBMAZ23Pa788lyEQkV+JlZOd [file] Jose Enrique/VbN/nPBJmA7St9ILbQdLqNZ6SyPThG3s3Bq8NcwaEhgvzNW9ZSBhX+9w4dqb5ATrvgBFv5Mjg87w1 [file] oayLypr/3hzuo/rt+8mRS0/J4Ag7Y0uNFsCzgwGPrynMVhHsy139uXQbMTJ9H/Saúl/847fnDiEX0eDFe [file] ebRQbnBfDzJVKn/CYELgQGNFyfLGlrqmmMVmpoafBE MDWKo6IUg0NvRE5BByR7T6MIJZ/sg3m0Z+x9fCeUUeUxtzKPA2w6lthcPdQ8b6fn8pR3fVXIZ52GQV/u SeV2xv2pMqHmVRqZWziBydxvfOEgoR/FK0fyw6tinc4se4GdJIMtSX+ZLBVv4N8ptPAoNvxE8kW9obTq zxgt6ZqBJUbDcUG6kEmcuFZkOWSwCjqfcfzomezsJM UuzlsCd7hIG10wBNYKC6LakNoOtt1amfydDP9atNIcdpbNaATW4fKN4AZvV1yY4Vg0osC1kNApWrBiKF 8Vs7v18fMZ3zx11NqeGvArtZBuPm5VZ6LOJp/k2zu6VqUNVPZR4VX2e3rv65R5/ZlyqUTgoNs18S0SCF 2OlMpBaxfCrogXkAc9q0nCUN7g5Z3FXFmbifvzCE1a JfBZ36+gaoTudXLCitNJaOmFSr5ks2s3k60lLfptIsvr9OAMOgRBCV81S+vOvib7B3k21HWZ9E7+Xj/x yEIf7zwZdqBZq3hmwnqJg4UYWXurUJiwaU8Udpeiw5UJ8YB6WW2dwkZ0zHn1GcsnLQskHgVfNysgAvIK 6F5Pm6ssmylqi0x0zFpztpGnGlU7ppIewSl++ab74l Lxto/Bj0oH9s/owme1BYe5Wfq+lfB15QMi7rbCibRPoq3V3qrY971UanwNBnl4oZ09UkO7sHYF+xoxzc 4KsuR/W+Lu16SnN7PG/Director [employer]cast+2uiC/So3OFsgCy2p0otwzfjSHW93tdyIk//DkxMmkMkDQhGi9hV8l4Wwbp cYnT+VGsyI//02L6nNh5M0At0nX7BXVQ5s0XGZmzMB vvgiR+O268vjCwb5Wi1BiPdW2sPJGeN6c/J2oEQNb+m545GxOZ7hCAymJiQ4XamEElriGOcAE5g3r+Dv X4cHdRdPdsCLJVzRlmcx7JvDWzQzvXwBoUxLsa7QQeyTmLAaIWDKFSKMJ+d7Xy5QAHBmgoDIG6Pf1pmg oxMeLED3Yn+//Q6cjgJPkfCQ6Q46bM1HOzpj3cy3RD Zvym1bMUO/ZgA75QUpWM8bJGM0ZwxzvbH20b8sgh5IaHmlxlgawvO9vQffLUFuoSbqw9KqnFb/SvfI0V L3dBmTxNFNnN6/Kv+jMAfTwzaazE5N+8z9SF9LKt5Ekff/uiTTorpqgrDmkOo5fEndvuGYr1jH6phRM0 O5tVo8GIAbh/QrDkBTdqb7bDevJ1ZqFWFiIsTIm019 NfmNOaSYBkOzZw+Kwb/IPvR6f71U6kAuXyEo+QsvtUU3VY2M/q8nHu7xH4uM5H9yu1Tug9FWdwc9xASj VkDFauM0fNV33GFMQoYp6d24ho3myTHgkmnmFkgtloO5KX0e0HkNA9mlvkNjUBSc/fjBbR10nQpZaUVg 0qrs06kxH9mWj08Gq4wKIoECdJ3le9Mhizt/1Qre1H Elizabet/TNFBROfQrnSl2mPcHRPmf8BKPg7FAjGzSKCjWqGNg1SzddMvgbv4D31aDwqE0bQM0E1FJG114K/v [file] oqgSFRbBQcD7fI2l8OXSQPHK5fYdj2aBvgJyXIPLEURul8mVkivUqtzAMmNT3TpNh9OGNgCfsGf/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 [file] analytics [file] Chitra+xexePp1HZsej9HWSSnXR3dBL0d2HNfkpy5eGSVB/4gdxCy1irxInNaAtn9S+67bRncl37WZHHnVca zwYNk88rlOw791OggXVl8ehcd1/EXZO8X9L+RR0vuC9VErYBpzukZsrOha80tFsqyvkwpDxew523l6vF DCcSjnrpGK2JPa0JcgNhfDT57Qb7yKyOBTXon9Uh3f jgxD3gt4S4TS1bHD+kNON+jmBG7/KfhqKJy3258TQpTa7dty2CV9wHWJtXg2ciLBTS611zKbGImprWpN rLpPABbCl0pWmYbxZVf+ZcvcLbwGdB07RLsOlPnKHWSgYy2z8/U7RBOxlqa44udHiwdwSSGTWmzgRfik Do8DBUvU9wBZL4BygCevSN9knfRchlf5zPuqeVI+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/4OyHrMpAguNLer1Bi0MUgl3FDB6A2CjSatV8fUl+4ctj7vbhSyaUqcuuY7StGbKinb9zsFiWhA1q [file] vN8iGJaLVe/+xWO63PvM3DRHHBo5CVVdSCimW3f1QLRAZ4t993455021l46HK+linotype machinist/Yv+CSNhQcmj73Ao kp0sKyCEN1vZ/oyLxt/N/+IAffRNUecIgXC3lIjn/q7GFq0Hla7yEs/z/tQI/Daxa+e8yiZXa1db1HHvc [file] qTl4visvw4C5rOL1GRkrcayrmE8Mh6naWr0wjAbRN9MqxN1P3/jose enrique/oCnr3c8aTp4W4+FEvkXdosJ7MZw [file] whlmSvE04guzhGD8s+vp analytics/RMYQUSIi83BSuWJIjC6QhovCBg8g5mo6x92wSlLnZx37q2LqBt3T71IEdhC [file] Maria [file] aG0nzR+sVMMbjLFYa1zTcZnp6GzRhRAHLruro5q/Mechanical Sound Technician [file] jGL4R9qonWbs8mFHveLa112Iiq/vLrzZzWxW3M1QLCxbf1Uk/JOSE ENRIQUE+VqwPZ0mxWO+Ic/abhE2dWInXa7Yo [file] Gyx5VRh9F1hl8fIvDkByZh8td57K1tMeEH/89qTeV0LHDazPRK44JYkuHtAbo8f1TOfYuL8Ev2N/[facility] [file] TKFdURAnSLNxoa62fHY9CZq25PWdac+pqvcqRVBvZSwfzk1qPgCiYlvstjpxqjgw0X+QMIqhwNVw+appointment clerk [file] i1RaBFYgVToglgSpCwpFUZtdvPMcxGzfEMTPOcMyVIPwUdHYTiUeGG0O ID Date Data Source [id number] 08/26/2020 10:04:00 AM EST [facility] [...] analyzed through the latest version of the GlimpseD computer aided diagnosis system. The patient states [...] rce(s) Supporting Document(s) ID Date Data Source [id number] 08/26/2020 09:56:00 AM EST [facility] Name Value Range Interpretation Code Description Data Meche rce(s) Supporting Document(s) DIGOXIN 0.42 ng/ml 0.9-2.0 [facility] ID Date Data Source [id number] 08/26/2020 09:56:00 AM EST [facility] Name Value Range Interpretation Code Description Data Meche rce(s) Supporting Document(s) GLUCOSE 95 mg/dL 74-106 [facility] BLOOD UREA NITROGEN 12 mg/dL 7-18 [facility] ital CREATININE 0.9 mg/dL 0.6-1.0 [facility] SODIUM 142 mmol/L 136-145 [facility] POTASSIUM 4.2 mmol/L 3.5-5.1 [facility] CHLORIDE 104 mmol/L 98-107 [facility] CO2 30 mmol/L 21-32 [facility] CALCIUM 9.1 mg/dL 8.5-10.1 [facility] ANION GAP 8.0 mmol/L 5-12 [facility] GLOMERULAR FILTRATION RATE 65 mL/min [facility] GFR IS CALCULATED IN mL/min/1.73m2 NATALIA L FUNCTION: >90MILDLY DECREASED: 60-89MILDY TO MODERATELY DECREASED: 45-59 MODERATELY TO SEVERELY DECREASED: 30-44SEVERELY DECREASED: 15-29RENAL FAILURE: <15 ID Date Data Source [id number] 08/26/2020 09:24:00 AM EST [facility] Name Value Range Interpretation Code Description Data Meche rce(s) Supporting Document(s) WHITE BLOOD COUNT 3.5 K/mm3 4.0-10.0 [facility]LOOD [facility] 4.37 M/mm3 4.00-5.50 [facility] l HEMOGLOBIN 12.8 gm/dL 12.0-16.0 [facility] HEMATOCRIT 37.8 % 36.0-48.8 [facility] MEAN CELL VOLUME 86.5 fl 80-96 [facility] MEAN CORPUSCULAR HEMOGLOBIN 29.3 pg 27.0-31.0 [facility] MEAN CORPUSCULAR HGB CONC 33.9 g/dl 32.0-36.0 [facility] RED CELL DISTRIBUTION WIDTH 12.3 % 10.0-14.5 [facility] PLATELET COUNT 209 K/mm3 172-450 [facility] MEAN PLATELET VOLUME 9.9 fl 9.0-13.0 [facility]ital GRAN % 52.9 % 50-80.0 [facility] IG% 0.0 % 0.0-0.2 [facility] LYMPH % 29.8 % 25.0-50.0 [facility] MONO % 11.1 % 2.0-10.0 H [facility] EOS % 4.8 % 0-5.0 [facility] BASO % 1.4 % 0.0-2.0 [facility] GRAN # 1.9 K/mm3 2.0-8.00 L [facility] IG# 0.0 K/mm3 0.0-0.2 [facility] LYMPH # 1.1 K/mm3 1.0-5.0 [facility] MONO # 0.4 K/mm3 0.10-1.20 [facility] EOS # 0.2 K/mm3 0.0-0.5 [facility] BASO # 0.1 K/mm3 0.0-0.2 [facility] ID Date Data Source [id number] 08/14/2020 09:27:00 PM EST [facility] Name Value Range Interpretation Code Description Data Meche rce(s) Supporting Document(s) SARS coronavirus 2 RNA [Presence] in Res piratory specimen by ELAINE with probe detection [facility] This lab was ordered by [facility] a nd reported by [facility]. ID Date Data Source [id number] 08/11/2020 10:30:00 AM EST [facility] Name Value Range Interpretation Code Description Data Meche rce(s) Supporting Document(s) [facility] IWEORo0eFpXUHvTnKRNqIyvYPRkvEMbeLFDsH9H8NInbPk2HCUkzgmPhMPYxCj2+SFPdVY0aic9oPJIa gMy 1oADGwNhtmT0NnLXLxk26QLXJcSGsKQcRiQhYzQhDaOzUkAfV4DTS6JkCtOeqlLY2jTNA6LKLbQVulXZ QtWIQaMdHuTdY5GZ8vXIkjOHtcYh9XFL5ud7DzHFPhLKZsHwzQSLqaJKamWGNaLWKqYCTiQ757klKuDP 5PqSEoCWa2DGYhLmV0KWQpPdI3OEOuJwRaRtUsSBCy Z9Awk689reKddoE7KC7FB8McLEN1OCw7V8pfCyZyHNEsIGBfKT1tLdU4BRFaBd4CfJaeTOGhBLTlGe2S gPk8TQU6EQWqWu3+Pj4+Mo6ygmTmCowKLAFmXB3wxo32KV4KcQWfDK0MNQsgU45pGXvlHc80XOfcEYNh FsTxEMg7Pw4qLoAps0VeZ0PwXJv7N7tGUgaiY8CcZS siFA2qYUT5GKUdAl2+Va2cHMGjTM70LJXwASKKK5DlugRwpnRdUDr9DOMrBb2+Jp9byjClSptLSBHcLQ 7yug03YO0RTP2fmGabUpq3Rsr1M50blPQhN2uzSoSwY3SysVbmFCXzQB5aY0NbCJanPWMrYH7bfpKqaY 7ZbVl4UCDkId8OtLC6PNRmM35yHPVdQFWPKCQnp2Yu MP1Ge1abfjAgSVKtSS2KYXLfL3UUE3CwY5xtlHgdNXLkCZ8EZWnuzYWtPAd4UZ2XdLNmUYEjW28rjA6l LW00QYf+GyE7uiKgmQ2GqBmyd3ZKZM540j0Z6+AuUf6QzWjIPIVMWGskWAOF4H8QtFrGLSTIs1Sjg5ve 7gwafAYd/OS/2956mN5rgmh4ty4uetf96c3K96io25 [file] zFIUHIAJHj02eUk+Jose Enrique/8Xc41bKGgbW8Ff6UydrKID3CCJd8rRQKbLCCYUxLQpvbizUiC2EgQfn8fswne [file] 3YmvO23G/Jose Enrique+fkmq+IwPCEyE5j0AR1vOiZC7tpIr7EH15MJyqXazMCeHrXwYlepHdnHYxxBpEGyDSfwk FmpgsLAJ9WgJbz4auX842WYK+WkSnEd/ZIYqhZY32o+AJF8tu7I7QCeQ4OPVMo0jy0+YDVlHluj+c+Yw nWHfaw4750owo5tQQMCqegH8sxkFfkhI9+zKgPCcdt 8EDiwe4HKlv7f4abpwpWWrwRfi2ec2VwlGaiuiLUf7DWhN2JO8EgLEi7MS+xZwg7yuD9sP4tvDCUoOiz SWw461w0CYx89a20FGCwbUgyd1mdcCJ7ISDlBblIedQlkKI0QyBaerxZ87w8hYSlXmEdElxQRSz/3sW0 IOeuAYDJ5CcA3ToFRaTk+XhaIJ95nqHhqvcSdjmsQm XH2OZss9dG6jUUd90q/kcNh53AJNHLZmQhk5FKYVWvT8MPmvWzYAqkEniw88zf5xbQ/Fo3iC0tqA5jSK WYcptI3f/PfvQlUIsB/U867z1nEQWcP+yl3HEnSxMR529odRvW4+Gt4t93tHIH56wQ+HoIulFC6Dit46 +4wfWhNu4X0/OYyyhZsGQgb/1bIGtNX/T9DJJ/RbXw Dat9p+K9LyUkSAhBG7DevOf7P46amGkN8PNklnqpk91FugBvjc2I4pBIgIqfrpl5Aomp0HUjKr1h8BgX iiAjt1Xekjg/z9F0POs8pwUW++DivGgk0CXRJufKm8ABIvVHAMS7CWua5Stml81//Christina//MJgJjIQxRh [file] bX82P09XzTy3wb/xx62ACXK6krQZT0i+VISUAL INSPECTOR/dgODF1Lzxxu49j+iPGsX7c1AZULkmXT4Wvz58bcHu3UZu [file] instructor fIU/ooF9z9JCR+qjs/L2W2y28j6LP1cZ8HNJQsL5vu+Fdr/3tIof+fsT37wEnFkMtQZnRnr8ifsNih7m VyR/sBO7G0OpktihmoECpzvt8WJuDnrwh0KrqcxF1u [file] U2EFNLVZ4ZmW54v+MqmfF5eJh+6d2n1zppjhnpJVP7KpdkpIKUSZaCkfc7BXxjWrHI56EsC9OEnaT+pumper gauger apprentice [file] manager inpatient/6QiW8gt1xq2VAnNwPe6xJpgr/pUe7zWdJnTIFHzQvOYrK6TDDzDqHJ4f3RaJOkZNdxFS5h/k7YleL [file] 01aHaxGS/OwB9encVKXqKKC+Conveyor Tender/Hh7s3n/YVERL5QNngp4YJZQyO8EyqacHHx62sg+MINHv6O8z/yMN [file] YIWnrFTVcBco+lap runner+jkzOOHMKjmYQne258BzBAUy1JzEm/MQejnP+5TyxA51v0dAPAdG6XDqJFstsxz3 [file] S/manager inpatient+7e9RTxQftSX8F1woJKQ6L+KFQVsdO3uqcXAYrAx53ciSU/EELZq2XvOryP5IYdSpfyc6bEvVzPi [file] KR/nkyG+JXWFymW1mj2a0rwihp/tDPyIcZIjhZ6d3jULRIHtj/Lizeth/gZnKRB+xK+fvW44jXEUMkvVEa vNzGqn8l75JWgVI0oRd49kfVhelsOdh0mFsDlS9SaB+YZI8VFVcV6FhonGg409HXM82FFM022icjwEsC mLdO995ARKswugjjKlalo+RZPex1JxzdnuaxSxwDAW g/XYyKz7yi0KzPpM9+PrJIieTVNBGsRbYCednXMKX91CVBBw9YpOuxgYt+6U1TBE7hsGCN0c0GN+mEL9 V6MPvkx/Exop5KFvA9Eq9r6PKban2HdPMYGBmmg7SCGYymc1e6Oz1PppRHGX+hCgnSevNkBTo0lL/pilling machine operator [file] Maria [file] jose enrique/bXGihGmr0oUJKsqu7D6tuusOZf2oVXVf2/88P+Jbhv5DVjMS/h9cg3xIRReU6azxFULUt5zn7f/sf [file] pumper gauger apprentice+CoVRY8/fiKQs7WZwSabFhniCIfl3Tz1YLSUu9Pjs7l77yIiwKIT8a3Uk0Z64diZ0kqknZ99zMPW0Q [file] [address]+rGZC+j+6zkVYHFtgJwm0J7jVbYbt/Mm860HVj3lT16HhUtcugFb piui/UBzyNJ6KMxgunGQYwYRKTYBtL06bg6/tx5HsGRLgt6YO4MZ+1OXEmI+GKCfMgcMI8nJ/FkI2y79 cySd1Ii88e/rHLHLPIlWG16J/iqZQGyT6jiNZguLC2 OVxcFKOJU6HpryUoliW+2uKDNRqezbYarxvbnkdM5Y+M2wA4AA39PLp680EN3Gkagdy6gk5ZDBZXwmFN 05LZ9lunYSq8H8AmSHUJnjko+e5ZZhVSDYt51wbDVe1UKIScI3V/HTqRhUCma2Mu+pxNb4UbsBXDZkgT BoGgO5gb/7qsWKOtP7hxtGuH/6KY+bT5Lke2ecHvtJ XkRLdBwwEi+UqDsx3HQg72o4DAqcLz36t3S+a6/ztDCBsqo3EHR8ulZ49THapbJ9llnxnuDebVpYj5tG 8F2J4jIwTWN53kkBzCATAiJBwDmbVP6Gc5E2MCijQxBHd/8tr8JCUN46ZTMQ1UK/ybF7EC3uKYEnBw1M a6kYWH51vUaAGGyoz9ini6npwOB/GyfqO+t7HzQH9W +1O/VJO+qiqatt6OqgOt78gJhvC4aVcrfjcH95WMCbuST2pTcizHK1aJ1t1IK8bzGUP9Qnc6+AKSFqSL X+Uz6f7SZW+p//kva1BNzPKowLdl+DkGJkLkaxAnN9BAg6EzCP938Zb+S7S2WDeU2bKRIViOFwo7xASw owwtMpxrFyhcbUE/tkqnIeQgmYXXTPLIOxesaYjxwa [file] jWRkvf3uXJeSInfhaGF+ANGÉLICA+32C6iUMeBnqHIH+QPP [file] Hill [file] 6tXWCX2H3k4MZz1URG3kJIjWJM/n1l0CVC61ALNCuhL/CEmqN7nB7X7QNCOl9TnKToDlojJ4SIg+deicer repairer electric/ sYRg/PjAjoKtulxgjGYf7xCiahvVdI1vosmdratOBx [file] gJUptNyRlKhM73czplmv9nF+Hh4bH7sWsp790eLmzwqP6rRBokU5/Mechanical Sound Technician/ZKklXLGqvWikq+9ejw0yR0Lc [file] Yr+Jose [file] Jose Enrique+/4YUCcyDVG6OeKzpPB4ho5e5RqSBI2R0mIFDcODVu7nWmCu7pfXsUzFpVbTnA2fvIa5rW9rg50dJv [file] analytics [file] 5DibT89yqCF9np4WyQGCCtkWsHw1/KHL+Dyv7fquRjkSH1zlYn7U0V7KPx5gcyJFVxmT8ugbiV5x+general superintendent [file] aqXKQMPdP6AP0NuC9Ubn29RSCr7VyQBqAa6zkGut0ILsge4XfOef+PROJECT FINANCIAL ANALYST+scY27vBmLLd9sxj4BFHvPv95 [file] HBwcHBwcHBwBwBwBwBwBwBwBwB wcwBwBwBwBwBwBwBwBwBwBwBwBwBwBwBwBwBw[facility]z/x+WFhGGsZG60H19uwIgIeYE0jfBKC1MvI+JrN4CtBwljhm0psQEB8 [file] XDHbAgnKTZUSKswVSZUYEEyZFQWTHWN0BFJDLWWMYIvVCPrBDl6gFAL6XPUhCYBORXUWKUG8RqDPFmM4 ONK5RxW9T4GOI2Z9Bj5cNu1ljTUoTAQeNf2OteIeAKLaAEBVY7NfqbKgCDznWCoxICCdTYEdVp4NSHiu IDQgMV0+WwC1btBcnT6UiOpzHGUyOZXnKWBvUHMXRN 2LxVeOVNXkyKKivbjP77TqctDHQOxAFD8Ed1+BJG/aApTGmfqxQpYOiibPCWBQXvWKJa4Gws4DGR4ta4 OaTKFrLLvbzpAsFysNKIehmFJzfXrdOUTBTln0TAcpVR5GDGDDK4W= ID Date Data Source [id number] 08/06/2020 02:16:00 PM EST [facility] ([facility] ID Date Data Source [id number] 08/06/2020 02:16:00 PM EST [facility] ([facility] Name Value Range Interpretation Code Description Data Meche rce(s) Supporting Document(s) Magnesium Level 1.9 1.8-2.4 [facility] Thyroid Stimulating Hormone 1.140 [facility] ([facility]) ID Date Data Source [id number] 08/06/2020 02:16:00 PM EST [facility] ([facility] Name Value Range Interpretation Code Description Data Meche rce(s) Supporting Document(s) Alanine aminotransferase [Enzymatic activity/volume] i n Serum or Plasma 28 30-65 [facility] ([facility] Alk Phos 179 50-136 [...] [facility]) ID Date Data Source [id number] 05/12/2020 09:00:00 AM EDT [facility] Name Value Range Interpretation Code Description Data Meche rce(s) Supporting Document(s) Follow Up [facility] QDYINf9mZjXISvFuCJRwUcuIPBygRRqrBAQsT6B2ANcjTr4ODBcjebUxYSJyIv8+ACOvAJ6xci0yMWQh gMy 0gRXWmTjklE8VmJUVsi87CYVBlOSiPRiFdSlQgCBAaLlG4SfJ2FDA7LyQdWkjdFR2cNMN1CKOsHZfkWJ WbMLcaGBBnJXWqNB2aAQhkVTuiNa5CBB5qj3TbGNGgGLUoRjdFGKccMClcLQDbLLWnIGNgB445rgJtIG 0VmPAiBIl6ZEPnAzO7GAUwBkC4IOXaRdJqEpRxOFXd A2Bfc876wcLhswH9EI6VH4FyTDF7BJz2U5bnYsAsZIYkPRDzVT8wCxP8NTCdRy5PiXfrEIMuRYZnYh0O lFx0BPB1BMPuFo4+Pj4+Eu4abgDmUbeHDHRuOE5krb53IQ3WfJAhEE0RXBcrA33jVHhcGx90JCtyLOAl DaDyTWd8Eq2uFeHrq3QbE0JyOXp2Q4zLBhuuI4GpRC pnYB6pEZN2PMJeXa6+St9sZCKjWH69VGWyOUOIU1ZewuIxtdZwKBn9GNHqNm2+Ah7uvtTtPnjAZEHgMF 4wba13PH4YXN8uzEacJqJmJmVpZ81pwQQxM5htMjVfO0OaxGaxHSTgEF6mU7HhCZnuVTJfWM0boeVsvR 0NoMk3HPMoPo7DmJG4TQUaC24wTMBlJQDIUOMlp4Bk XG7La4rtueSvXPJkAP5OAAGiS3WZR0VdK4oqdBtqMKMyQM5MQNkczIMkLXx1GQ7EzQMpGPBiY10prK6d JU03NYo+KeQ2cbFieJ0IwBstx3UJEC153k9D1+XoGb9OzRyKVIJICCibYKBT0H0HmHlIAKHPc2Hgb0ry 7gwafAYd/OS/5754xT7seyy7ec6elec31x9F89gn23 [file] dZZAVEAWAr86sXw+Jose Enrique/8Cg63pFCavQ4Ew4IyygNLC1SVIt5pTYShGXTQOsOFltemzDqB3DzRrd7mmvpx [file] 2KweO28M/Jose Enrique+fkmq+JvFSIlQ6l3DU5oDmCY9loRv3ET20IElvLwbGKzWnKpCwvdNgfLFqkOtLGsNFqpk CouxeXEN1MwGms7gjA958DSH+WkSnEd/TCQqvFE52u+TSP9zg3Y0WWzN2KDQSf2qs4+YDVlHluj+c+Yw mMVcrm7852yod2sEEGWzxfN1ekiDyymG3+zKgPCcdt 8EHqtw3HWtr9q6trnwlZFxrCfw1mw1JzeDrvolOOu8UIcI4LP1LpDCx9CM+vOsm3qaC5kJ2gxRZStZxy RUv020j7DVg79b51GITvjSggr0rqkCK3GSDmScwEoyVjzLV4LqFbqokQ89m6mDLwHwUmRroBCTx/3sW0 XDyiDQAL4FnH3ErCZcHm+DobTH11fyXoljxWnqrpYm PJ3OMii9hY2sXXu22g/xnYp87QNMJQNwRbt1YNFMUcW4JYgcMvJHcaAydt67hv3suS/Uz2kU1saE4fFP OEonqW9v/PfvQlUIsB/N787l1tITDlK+ue0NXpDxEN420clJxR9+Hp5u69jJAL99zX+EqOnxSX2Ljj01 +2htAuOv6U3/OYyyhZsGQgb/1bIGtNX/T9DJJ/RbXw Dat9p+P2UjDoPApAH5PprWg5H93zmZzH3SUamuysu15VlkSiti7N3iXDeTnwshe0Jami7UAtSm4q9YwS djAmy7Zokfi/n7V9JZa7unWS++OvvTdy3JZFYinNl1TVQnVWNSW1SCfi4Pvnk26//Christina//MJgJjIQxRh [file] bG26T46ViPl7qx/si21ZHYP1btIUU2h+VISUAL INSPECTOR/pvKSQ2Fgxbi40a+tNFiX9f1PFLChaIC5Sby62hrTx2EOf [file] BhdV0mq4bnU4/Z/XlV3wiMXOH5irRv+Angélica/3qBPaqm [file] h5EDoz34XEuoGmSq3Oy9IKyy4//machine precision engraver/q5GXq5hvBfKcfS2vnP56TrFoNUFmtplHnXQeVjgqnNBa5d4at [file] Director Operations Broadcast/dqzI0bAiuMv2/T3SowzHM/2Si2CY42YWZ9jUJIIsI/pUf5+D1nd7Vj5XP4SeZQer4f54ytRepVcYB [file] f6rMnI1d68l1TBFL5y7kNstoyz5vJ2b6yI+/Ies2zTmT6akmkohgO7rgqsMD7emzQy7qNXnhv5pjx 8f/nfv/aE9RgwazDaTJDOSxhKkGewanPsFfVNFHs/4inxUgOgf5iu0XGJfdsqrwQ5a8ManyTlNroXE9x ikUy9PgR/NvqNEzGSGcEiRui80qEmcnDp2a3103yYo sgO2O+cg6ChMP+tztcYyWtVzOmLybR3gLZv7AFycGJCZwR/H7X/2F8yRLMakkcedHCU5Zxa7mDfdiySl K4VJTPofEWKB65Hv4YcfXmgbZF+SUMVf/jbstJeTH1oSmPfYa74m242LwUQy5QVkIIpppx5H0/sS6xmt O2W8VGpmGXJPiQgtGvaYNoX8Qd7jv0bs4fB4XeWcEv YGgFatVDDCaMbvaIrvVrfgM0nyon5eotj50T+ez/8bFt66iRT1hp8HLPfgVDx0PVgo4gIG6xxsz+ROKV Uf5/39Hxp0cKhN8p93qIyVg7OughDkLG1rZo16VDOBTRE8mEtP9Pe/9Vhhib4R8KtpM5BgabsXPM763N K2UVZT3td+VISUAL INSPECTOR/vo3NLwkddkRRn2nNZBqYxgOc3Ipb4 [file] mvs2eK9iZQkovf9HeBnQ0FsEZ9qrgUiVI4+NAOMI/0mu TDrYrocH6NkUEJ+VQx5Og4wn44d/O/vNWJwhMm+Tk28edxK+kagOR/wKi0axQRT8Ru+om77rw+q10gkU 37g9r1aH9V0VaHSRgIo2079DOh34bhKnQseX1qVxHsqgCfw8fe3TWMC+2/qKve3K0GSbLBnQNTUmTlob LWZL/YfRMu9Lp5p0ohL5VpmBjkQM83nt5m8yV3hqRQ LEpm6LHuEyadBH+cyfWeqB2M6isdBilXEHXdpo9JZcN3WRqRddP+UPVW4/Xn4z4gK+MOyiMoJ60qju4/ aqItvv8FcqstFfpQ3zpeTCRM/i4k6CVYlV4Ba+YX25cKm+bK4HfywZgwWtW2uk0qu+4ETXNVAB2GYRnZ sdri5AJOxw6quD0HWGSwZhoP75h/L2y0cjoemT2u3X EK1ZQrfrUtT5qZr0zQ73cNMojjFG8e9/S2qIohcmahcZ9nWoOI6h4PwFBkGNf2+4qBB/4LUCxP4aZeZD pumper gauger apprentice/8JkbbuGW3TRKBLTLtzy385/R9gjBfb+urn8qJYIMNt+kLUHuxuYYEhAD2X8oMsrqJkk5ww3vp3cOz [file] l+4k/HEb0EKgbas3ti3t/QI+I5G3GweJK9/O9 [file] mvTqp+VIJI/hEk1o9xEEucJEy/g12h6mbupzbDXp2pHG43mLdS5UO0jb/3wDqLz6tV0UYPX18rEf3el7L 584CgXRvG4nhUWDXqWg99rJhd+FQoVKinHKE2KCxD2hm3XhZlolP5fPF2Q02mqk6xiYXrYnfgRrIPqAd w4AaXela0EBFnd9yy7h/DYzyxfnDp0Cfun8nO4nGMr 6KVrp/OAjMXIc3yuukhcpmmVPYthaP9lc7ldtQmVW8kYbjNOfvnLSVZqRzeWmpVcq010PLU4uHg+6xOP kGZswJXcLF88R/TKgsnwFoEDoZWGEoQ0M7QP3w72/wTVgLF4MU8jo4EFaCi6zOCNC4TJ3p5chy105wtU IUpRw/Z9eyxak6e4qsYK+dAmE4/zA07Y3ph9eoas8v SH9ccR0TLlJKz8zTtC664soXYc1WQWVv3TXACgr2QmqrnO2HDKCS923bbnxyNhNNPTQbOR0ORPoqEVfM ppTBcJ8Ay5iCsAo4me9Z5OlsA+dZ5ZD8ccEWqB433q8QXaPhORo/KmypdSvUCFl2rE2LSQhSh6Yywy8D Pcfo9eXp+Mechanical Sound Technician/33ng08Ibr18TD4RUDP6GlmBSG1ZKTN [file] f0wyBawPc+v9NBwijHuKD2ivY+JFva49hPpYhX+photocopying equipment mechanic [file] food service worker+BsTDQFOvs3yFHz8yYhUbXQBTLNo9j2unfEIp0 [file] 6LK1cJ53zPIK7dSEy8tHiyop/nqAed9stt/RRZ/HOTEL CASINO FLOORPERSON [file] quirk sander+P9XvulTazaNezXpRGFKrX5h44s/Mi1cjAR43PWw52w4OhbTBbsJJ1xMK7falrZxdrsOQXFxniMvg [file] y4UyMDXmMVuirdAnOjbKXMmxtOQiyKdrYEWMLzz4CrQfAI9WFXOZE4C= ID Date Data Source [id number] 04/01/2020 11:15:00 AM EDT [facility] Name Value Range Interpretation Code Description Data Meche rce(s) Supporting Document(s) EGD-Colon[facility] MOWWZg9bKiCAPwNrMEEoDmuRYYknRCeoAHNwG3D6TVyiGq3MVBfwavQeVSBnJf5+YWYxBS3fuu4nGXNa gMy [file] rtOSG2Z60j2qNALhg0kfubxBlb1iSGVOLQRlhV/manager inpatient/ [file] JOSE ENRIQUE+bs8WzPIUxHyCz68+2n2zVka9dIzW9B5t847B2P3 Q4deg8/zQRCKoUx5Qo0/SfIQhc5oNHjf45Ay8dpcYcFcogpl3Zest8o1h2MtY+F7qcMfXqIioVzFC+vi +iqLW9XYqbI5cNKhmpvtmKm5FiKSuZq+8pIU2Vwjts0J1B4qCf3g4h8Xv94YBoD5BUIhleVQea6KrbIu lfiunxnbCnY2O0n7ylmZ8HW1s0BU7dvmelvcwmC/3o [file] [facility]/dYqPs47ClAfaGgKbssk3eQjxIZ+E2TIOM132 [file] /92BHMYs0qUGXqrPjUwcwprLw45o+i4wYeE++Mechanical Sound Technician+oU EypugNr46hfHHe5ii5zLzqaVtfq9sKdO/TRdj4XizLpO5IAVpxjXkgsdCzuX1gWxFitJZDu4JGeYfpMS cG5ZSG+YNC8hC7iIMFl+E0SzuOYIFaTAzGdA0OT+5qs0yaFCuhkI3kSXG9S1OuRgKQI+F1tjLhvpiFBb 3DhoASn3BVoDhQDa9kmEKb1vivB46VYqBoRXJ72TJE n2VfXcCdPN2JFkUJMRhtWyTpp2whA9RLIY+DnrTkvybb7HOWkdjDCm84nu8e6DgvbhL0u8aIIRjC0F35 52TTs5Xtbslir124xYoQg2dkR5KejUm1kxBewYFp5YOpuHFWvjq5tJZ5YjWbHOt1qTFZTutMFlDLjj0V P6SMl5fBwZRjSGrtYkE6nossRjyT2CmjEqJlmqeG2g ek/mzn15U4rQhDwBG74hPQrNqBe3e+v2C8k3uJimLvuzDhPVc04gx2ORw+O5/AvFWveyWwrfButiHFD9 llIc9QQhqIzauFsb2l97ctXfcuhWM+vXMPgk+m0tfRz2LW6r90sFISFfT24tNpG9qn7xZ0DJsmW/I5uJ YPDh4dw/KdofC+FxNdOgYBYqMtOjCkWUIfV4TBi9uW uW8JywQYr/Fr1WQXyCxU899oaKNIu3xq7Jf+dL3yeDf13JssG4jMDWQPOpy9p0hDpB8AltMyidyMqQ54 dHd5Gu6AMf1/u2sxK84KaXGB8ef2EkSNwwEPd86vO++TKuXrUkN+K85rEvQbhh6b/MLPGnp7LuOrtK2x ic0LkWXzDupn7dKzvssu6Gm3D44ndQ3VBq5QAFf0l0 +LQ4QHdctc+TfqAkN5T1XZxFPuGCKNSFpDgRhdG0a67g0tAUmB2FTl7kAUfsiUH1h8+GUILLAUME+xm+oPaJiv [file] 9yR/room attendant+tL1AQjt69+BpsE0vtRpFav8sW0ZR8N+ci1f8nxavuIK2TodUqH/we08G4E8DuRj8YJuPhwMW [file] linotype machinist/Py1VEKustBPirNcc4Te1MhyxM4Mp/8sfQLnzOEoqdqyuC40XymG/0r10XytKQ2BSyx+wiqkzy3LVv nvqjPjoc9/b1PZ/exeB3smG+sT6aBRAg6xSmmZaHVO 0sSU5SXG92HTB6po3DTHIGyWDZu0csrLTYIIwsJ/Khx9b87JFrrcPBVombdRhPbNNGQ5r6zWFqzeRFAZ Qx3fCGIWBmM7AahxImQts8PoqPizLIAOv2bJUa6DvlzggH5dBEuLcfVbDwdrsGCS09CR5x3s9g+pvI1s gCl+jdRfVPu7wHp+u/HDGOOPxNYIylreVKC+jvsKNd 2Ato5BqOwy861MtQ+CderaaEbc7bWWYvY834NpgOZFjBkTcF5LYHt07UtX4PFtA+5xsLKE1ZjUh0xq3t If7+eeAPNBHRyPklMZBk54LGV95MSF42qNTNftpAZR3ygEXVNCsvsWutc/wgrbqt4n1iw8EjKGvyZkJx FLoJXT1/562IRFfFiEnj5XGZuKaYeu5Y6O2cN4SArJ H7RvptRq1Bdrx2FdjiNx3+vX9nA5Wy5y7paG5BpGip47JJqzmmNYZDrD47UAnyh0xALQrupdmxRoAyxN YNGchjK5+V9GLjAf5RFgTZqZTo6XMQz/B4waa/I5214A/kXWUPwTNJrxOtPNIb0A1tSUerVO7trgq7aM cristin/rJ7QplavNcJzH3wTf3yjw5KR/qvpT7pzUNJ3B5 [file] BKwuNlK3ORmzcCb59NRuaSOHrJDwLhbAMblUTeCxYv7dBc+HiMYvx6velGMLcbYzMBWPBAxi+6aTe+PROJECT FINANCIAL ANALYST [file] 5KxaFLxgofAtL2VaxS6p8crylJ8jtXN+SLABBING MACHINE OPERATOR+rujaAS [file] 7qnMGszZHO+d87pRTqscI2+LLhQmHKttdFbEmsO+linotype machinist [file] hPqrVhobYc3/WiiolKj4spp8Tb/pumper gauger apprentice/wj7026SNpxExnMvJPoWg2wUj0JX0LdAzFHc4LxxkqdD4rDhY9v wUojh3ePNNEnInGt1JED6M44VX4+oN8IXd/2fpgadY CKsJWIGw6aUKzuMmaGhf+i2hdqY67VMq99izACCfg9d12EfWku5SnSqbXqRVAUyffuhZ3jMk7s8kLIZ0 dixon/kemd4klAmogDdwUsUemvVZc8E7EpbVs0lfxr01XWODxN1rf/eywJxZpZzWgMSnLXj4o9emOL83l5N [file] Jose Enrique+Vn4rLqTvv0ifGZUlmI5Kwr/Jy+6h37biXiT8/zhj+DMMg8dEw3/OAOqVW0yH5PD3M66y5KOMev6wf [file] P0hne4XotR1zsD+vp analytics+MSzVk0681H3pOI6lXransRDMLr9jCk9IKXmHrxd4wgY93ONoFkbtQ8Ow0WX8m2 [file] jose enrique+Ur9p+87FGJ5anYZdMczZBwiSuiS/sVR6oweUQKUk9kYmJ9P9+R7oGVPQ0jaZSIq1o7fR1t6ayS1sz [file] FqJ5RATKi+BlUcj4071ulfWGORgtOMwcl+gSdzRaWqamd8udBtwd35rvkV6Gz1uFqndiq00yD+mZ+[place] [file] NmOC7dvc4IIrW8TJY9jGUzVe7UMYTrYIH8EPozZENOVt== ID Date Data Source [id number] 02/04/2020 09:15:00 AM EDT [facility] Name Value Range Interpretation Code Description Data Meche rce(s) Supporting Document(s) [facility] UVRJIx3cZlRGXsZrZXHfZrcLYRnwUKhbDPEaI7U2SYopPw0RXXhxzlOmFRCfLx5+VOAjWU0lrk7gVLXc gMy [file] FterLR/PROJECT FINANCIAL ANALYST+HH0q0Qmy/qCk/ijfSzqIEUWPhB1dXmLewzH7cGYkffFb/dsI1rtwfZ7MQ4X3BTPHRYKS1i [file] tdz2nce61NQ6qZZ/WwclD3EQ9lk71KH/SBjHrRvLGp/Q1N/ROACH/dsxFthVxj/02WiOpFsenm7uKrHEbqS +oqC7HXVGH3jqLKVJyI1ZvK9AJ/RChQ8kj1qSDQD10 +vbOG5XeuGU7inzN2KlcUOSh7coKawCUDruKrWS7+ykTO051DLt0t+aebi0wRy6Amig2RnxQhzixXpKw i0zluBwa0ZA2WzUs+FSwCHs2hDoZdCsdaBZ8nrzpbaphBZgnr9QgG/eXaXvRK1KPZC6x1RFz12hYBu7x Aos45IgQTf18ChBUZ8CaIxM6kuG6j2yg0VLaMNp9LP OqbW44pkag4mjrV1COUTKTFKPvKP17uLA4tu7rV5NWNq3y9aWyV06ZKgVeCveNjKTY3axmt016+PAN7C 7/4QGNIpc/prM3YD5TW2qmtx0Ji/JOIkk0wqtunjhFhodDrV9PxkxVcI8/bzo6yav80edOLl2dGNm3De iBbEfYLfYxWwBg0xcietVO9Rv66Y9lB7Pk4pDg3Pq/ BjtSTuiH4zqjW1xsb2MsR0AChdlLlKmQnO5+oBZCsqJ5wXnOeUAEGGrVektO4DY98Xj8VK7zoxZZEHK9 7IDPJuJSliH0GXlqHHk1NtwLnW8zm3IEMwCe8NrO/iQef5/LKwcESkzRhtBgfyuGgU7vugksP1YYwej9 r+n9PD/4/h3INQPd14BLJauBGX4SEmPhILyfq3DicP VwNL0NLe3PYXPVuJfMngxE5UubcW4JBFbyEjCy+uSEmJOynNSHVqmmIrdEWddrjq97qSEQSKpXU7/B32 J2whm6ssegoPj757+WIzrAD/MYtvOYCufXEbvP/4P5zgzPiQdL5umL2TgcGvn970/F2purcO/M4shE5D 7W+TWcClUkxIYsZaCysqXaZUcpXvt6WJQsOMiDL7/H y9Ze29Aiovx0q280SY/VH7bGSvH1ieNPT8+boPf92m8U2G8QczsPS4MUpwzCbktUNNMplxyj3+FaITs4 8CXdNbYymron1JkRfOxqBCKqVkf6cvtDPff+qvLHG8KP6o5jjl/YXeFb7Lt8tQ4Z+PROJECT FINANCIAL ANALYST+3EaaqsKbRCL8 [file] 0N+7GyJranvt29tg0JFVl0Nt29e5I0NdHp3lPXg0BtuVAqB/VISUAL INSPECTOR+fHOdS8fuMApFefdtTsngWs7z4FPDW [file] Tv/ZtAWm4cU8vsPtfJUUYsNact02tCQPJPAwW+WEYMqb7S3faTzeeT3S++university counselor+q4chZ4dA8A4xWQ4OE1 [file] vNER5CzaU+8JGAwZsNj46vBgWo/8e0is0weYW/refueling ramp attendant/ME9wMFksDZLAKGeD4LBYCwSjO7Oo3sLlw9SCWa [file] viiVULrvqfQAzVYVZgHcRlDtX5iI6qmhkuAyKusv8m68HDNt0NVpvvtLrrTUIG7Sxb5/Giovanny+vSJedvOT7 ADqV2bT3LpcVxmg8aXG9T9sIotOZu6OqFOMoSrgARD4HObZZsXZjuY+WwftpSDFgL5RUyoaFpoRNv811 jose enrique/P0ANsYTTYkvioCsVrlGu7fUpBnJt4yLrkWGtWaz [file] 5UfYHgJwfzrh0euYWoHLKI1aF3rQgcjWVJ+L/GQe8iTKPcV5EqK32BoDXGkJopHNTq5dfbj7XtaR+CONTROL TECHNICIAN [file] dXD5JgG9mYcZbCuxSaNx0uJ+manager of employee relations/WUj1VxzhMrad3H8TPyoOFBMKZP0fovwx2lfr0scdyhqV71n2MQbE [file] Shefali+x9jlHm9PdqcaTo/kE+JNpcZcmjVm9fa3aISnOqHPfev779XuEiy4UnIyVYR4QhPOThyzVdbIXU6+ GSBzs/IGG8XuqxSrfNDxyfpHk8yKPX/Nx1+8dgPxA3 aerYp1RVEg6wgm65Z82is2JVO91HC1Kk1CVK9FWd081ILtJHcW1B5+q08nT1cDdkKAoNwXWy7GcuTjJ4 RKO+qrnK3plv7SfryJkMrdh1Qo4E5FJfsPMxwSd/RrhqL318DKN/gNQjsLs9X2Ucuch/FKtvw1KOqGb3 Sf9DzVTCwYjqVXEPWT4lzgO3y7dsQKNaH6cn4tRBcn HapFnoiJVBR88/NMhCYN2dIwUHySihQRGk66naxvqs2ZQO4Vj1+uy4bEq5Y9rN4BP6C0LVGYj3+sSs9o yH+UAtzSq8LVerc5GjenVtms4ooGK6hlygotA4h+F+aete4d0kwFS8ct9O+P+fC84Gn7fjPqfhHDRZM5 OgKPLcyuTZTRBl6jlBHQXB+wySpmEtLJqYXj0KlFmc sPsCirQ5MIL2kPfzVsj9gaqosgHJNjezD6ZumxPTQdwo1ysrDg4jjGfzPGjCneB8Zqd8j6Kr1xp1AjlO 5XJiqelsg+Qjs6iw3/yDqZjg8wC9cQiknqnFzIfhRTYUYRNVEM9nQcagRdOlNyiWP6WB1i4TSnBKsO6b bun icer+xBriqgeypGJDMWRB4/I/yEqyDLUrgYcgD22Mfs [file] navigating officer+NGXg0hsicXkdNGYUmIqqTCfYXleTpp5d28OT20 8YFdRm3Zfd5GV+gvzIuDPm1BQvhIfdDHG2Np2STftj08QLSF2nTOTfnR4Lh6m/f+bykTBi/l1cuIp043 f28L5Btr6ovnF/kj4jjnvysfCEkuuEvJgtxmxBAj2CwuZ4Tc242Eac3iFjHeLcCbNFv0rPxiYgtVNVW/ ClAhyP0mG2JvvDQo7X2HnLXYLqRl8NPH3+1MIkcr8m YaWBElqTQEBMY9qLZ21QR6tZ1Eivecwu1qpwcYH5xajcA3q4EVucQjmSkizF9mHsZKOlCSjg5xq/5wZc GpT8vQuAE690JnxUAJk+PMXKFdV+Xabfl2XMYCcZAcZrcbqH3loWyL+ph6MudX1I6T/N652M7caZmtC2 OGCzTcdVBS/9qdfSRe6/b1D/xKkCVL8n6s2eG6lARs +WGpEHh6/wv+Mcn/+nZ6OFMDMujEz3CKx/OGXB2G/lBhF/d53/h7XLEXWZ/iLgpF/2+jD2b+4euz4oub 6M22M0uNDy9P/q/AF1nZBjDeQocK4o0/jq8h8jr4PPDnpwB8MfMtVLUsGKKwmtxNWwOqC3Wt6TobSEtn mHbFsvBauPPoxxZnmVcYkCFJUwj6LYQliO8lgSnH9v HNXhcbwC0QhQzMK81xX75LD0xW/s933LmKquhI2li165l81xZo0QbaYlxstTsCwO2NyE0YSKr4E5WCYX Jg7xW3A88V4xihICnabmb/AwUhpKHxg1NH76SlCJTDS/Ve3LBlTiX3+Q1VW1WLmJc1r520xF6iJLRTgE yb+ZE6+1Z8rr/VEtuuY7iY9dGDJQNjUFyL8benS8PA Z9iaM+QsEqnitBX3QN1toa/ricDBzXiIy0UW7SFi34u5rNAfebBD2Hnwsc7KrpIn80hoxhGmPvy6+uQ3 I16HPYwNk/U0l2Nn487/1r4tRWdywEF764n0BtXk6ye7b1jGQrqM74f82R0N+js344HgM8Ux8Kc6FX67 [file] Jose Enrique/hUFElmN+08A53b9I4pyQZLlFuNwooTPxpCYb9o1UBRpuvbWs3WntuOrxY2EK1rCY8RJBYqq0qVgXZ VQgCar+YlUQP5hmdGlK8olWojbYnFEzNtdVwUsGHU6 JcSKVGUjd95Fs3a5Va3AugUQeIJKvaSUldl/DmsrbZP935PRYbTv/SzxMH0gS/q94aFXhJOC2obS1DcJ RYxchm7anPB6ZJW8mBLdp1Kon+oFmsyjagICS5lOUBN6fB4q5E9e289aTCVVI+vo9uvHr6JLIUL4/Vf9 xVyspl54mRvbEjVnVnYj1/v3yemqLazGicd7JzzRIj b3WQQYC6nCkmaiYwnHrfAyBBZ1tFCJNbpaULxifeXgvw3TXJSD4kuGdXodpLgVSDP3Spqzh5JLtU1dpw Kv8M7yytmjc3OxUQsQNean0ZZvWOrjWba1IBDVgmyPQ4wygezaGmBt7xAq1/08oHgw7H1pjpo5wBIjvd 6UDaKgd+UKbuRHzjIyfauM4bHOtDPGVc9cDZ9WTI9I +pCi6vf04y+CbFN9Xbd6rvVlg70AnIa2IlkuZ6CkgRtU7uhRyr0RKMMqq1lRAt3ZYAa6C6uUpnTIKW9i CdadEGHmmj7+4PPL3AtVQa+5gfGk0CglejsCDe9tkxTQAx+VvCxxDJTC99PSjnLX34ZKMnteM6mhYewn Xmmx46x6jD3DqsFgH1MY7X6/tjFuwoPrjitOJ5ipth bc+Chaka/E3pm0FWVAlgy1yWjXvwudZPY/TPPFR9U7t18Zc9pEBhELfDo6S2HfYxbKdtvzJrxQjIIzomJW [file] HYB8XOUZIOFQDo6wJeLa6310HFZOa4By/d8wNCMZx+ q20vcV5m+h03lGVvDqq0a8a79/6Ka54BWLeC7N+q/1H9j+p/PROJECT FINANCIAL ANALYST+j+n+Zadh9QXO/WHx596wbrupqlpOX [file] /Khloe+UD7kMUkTTx6AoJl1NX93DuSMBS0sEpLnMBi6OfqLJTY+5Rn/wSCkftIVtDx20/Ul5PazpVURO7jR cg3leKQbD+fe1t5kLHa3XnI1OimZ81fbqllcAffcIX Q8KacKV4rAc2zGbWmpBEcynDlpQ4DNc7dnrJMIxfnM02Ma7YWGtw+FClu7IGJFzMYpppM45jfmHDhf42 wrOP7JaC+8ghVocrpVFQtGo49xwlDQPHpRYurD9iKyDNDmk+74Mt6SdIVe9pRdGuMRN03PWhxOCM2Z3Y IaseqiCMDcbwKh1FDwg/wO0CP7jq5QGOSbgXr9+A8M 5zi7YBEkEdtnr/w/HKvQ+sH6741tipl7JOm4Cj/K/CrE/i0g776kqMD+lmiUTLOvUM+pwjTF3asfXRIB AkNbilxD8phR1nOtBOYxPC4Ku7PlmLqDMmPp4w4JtZS3iltfhAqEhDHm1QZq6rOyyZ97YsOeTjjgTZ3P 5ftzaEJTy9JN6VTKalX3SlGP9xa0zxmrr2j4T3/35o mP0RFwWQqUxkzbz9dk3HePCe23As+oRQyPbO9v+/g94pY4qJ7X/IuMaqnmnAjlvj5qnTtv3bJoH7qfo9 BFNpFB/WK9STRXZGhtfQfnz/gf37ojYaTTYAGrAoVvqbSn6DR0RF/72CWhE6p5ZOBU89lyd2WVhzaqnz BKa0miK2SJNR+2qU+1q7/RjgvlZ+T69U4RtYOpE+Ag oA54ivqGYpDFYVpeXKmjb+0JtUv3pDvSr0PmJz0mOw5gGn/Z0MCVtoI8lqO/DPIekxcUDvpj3c3S/lmJ 52BvnjYbvlyIde0RBz5Yte7Y2LAvM4QKP2as3eA8FjdWCbK7si8vYXsuVcsVDNXvM/pMigA9xdebrykG wlTDkMel3xKxSCC61lrJbbcLBFHJBUQsVkf2/DtbWc XM8c9XzR9ZqlxcAu7J+VK8Lv87zA9Tr1ILUS73QL9T7Hzn+0JpCkK/ICInW75S+zMNYycvPTUHTapnG4 apPczyBSdDSY7qJahJ98ns62DcqZD/Director Operations Broadcast+Ee/wIXit2fsutG8qipgj32OlvH1NbOgMtbuEYs0Ekp2RN3i [file] CiBK0hZMj/4p7pcSyA2SlY64lKRWepM2HrAZkFYtyHbiuc/gGqJABQtTl0PVxN/M4C9uLvi9PJ6C/vp analytics/ [file] DLXs9HKZbE40Y+k7RngdqBZVC0fobtYt5Qeu/waJ7thNOs+ptig3WoLKTkOdEfQ5s+manager inpatient+SWuO4iwYFHa [file] zIYk50ykWTnKKLtQmPiu5CHS5ib8CtCXLrQEixbe QyLmiJFHbqqVYxaMrrTRCPVoy9SFN3AV7SBKVCA3S= Procedure Social History Code Duration Value Status Description Data Source(s ) Alcohol intake 09/29/2020 12:00:00 AM EST Never completed [facility] Smoking 09/29/2020 12:00:00 AM EST Never smoker completed Never s moker [facility] Smoking 08/31/2020 12:00:00 AM EST Patient has never smoked co mpleted Patient has never smoked [facility] ([facility]) Vital Signs ID Date Data Source UNK Name Value Range Interpretation Code Description Data Source(s) Oxygen saturation in Arterial blood by Pulse oximetry 100 % 100 % [facility] Respiratory rate 12 /min 12 /min [facility] Body temperature 36.67 Lesly 36.67 Lesly [facility] Heart rate 48 /min 48 /min [facility] Diastolic blood pressure 80 mm[Hg] 80 mm[Hg] [facility] Systolic blood pressure 119 mm[Hg] 119 mm[Hg] [facility] Body mass index (BMI) [Ratio] 35.12 kg/m2 35.12 kg/m2 [facility] Body weight 98.7 kg 98.7 kg [facility] Body height 167.6 cm 167.6 cm [facility] Oxygen saturation in Arterial blood by Pulse oximetry --post exerci se 95 % 95 % [facility] ([facility]) Oxygen saturation in Arterial blood by Pulse oximetry 97 % 97 % [facility] ([facility]) Diastolic blood pressure--supine 68 mm[Hg] 68 mm[Hg] [facility] ([facility]) Ra Systolic blood pressure--supine 124 mm[Hg] 124 mm[Hg] [facility] ([facility]) Ra Diastolic blood pressure--sitting 72 mm[Hg] 72 mm[Hg] [facility] ([facility]) large cuff, Ra; 128/74 [place] Systolic blood pressure--sitting 126 mm[Hg] 126 mm[Hg] [facility] ([facility]) large cuff, Ra; 128/74 [place] Respiratory rate 16 /min 16 /min [facility] ( [facility]) Heart rate 64 /min 64 /min [facility] ([facility] regular Body mass index (BMI) [Ratio] 36.6 kg/m2 36.6 k g/m2 [facility] ([facility]) Body height 66 [in_i] 66 [in_i] [facility] 5'6" Body weight 227.00 [lb_av] 227.00 [lb_av] JASMINE T ([facility]) Patient Treatment Plan of Care Planned Activity Planned Date Details Description Data Source (s) clopidogrel 75 MG Oral Tablet [facility]
[2020-10-29] MEDS ORDERED: ATEN100T PO (02:05)
--- NOTE | 2020-10-30 08:12 | ECGEPIP ---
[facility] - ED Test Date: 2020-10-28 Pat Name: DENEEN RAMOS Department: Room: - Gender: Female Pressurised [employer] Filler: : 1965 Requested By: Jovon Molina Order Number: [id number] Reading MD: Alysha Breen Measurements Intervals [place] Rate: 79 P: 48 MS: 162 QRS: 29 QRSD: 78 T: 7 QT: 374 QTc: 428 Interpretive Statements Normal sinus rhythm Nonspecific ST abnormality increased rate 08/16/20 Electronically Signed on 10-30-2020 8:12:32 EST by Alysha Breen
== END 2020-10-29 02:32 | disposition home or self-care (01) ==
LOC: M ED 23:01
DX: I48.91 Unspecified atrial fibrillation (principal); Z79.51 Long term (current) use of inhaled steroids; Z79.899 Other long term (current) drug therapy; Z88.8 Allergy status to other drugs, medicaments and biological substances

== ENCOUNTER → 2020-11-27 | Outpatient (CLI) | payer OTHER ==
[~2020-11-27] MED LIST changes: +ALBU8.5H; +ATEN50TA2; +DULO1CAP5
--- NOTE | 2020-11-30 14:50 | SLEEPCENT ---
NOCTURNAL POLYSOMNOGRAPHY CPAP RE-TITRATION DATE: 11/27/2020 ORDERED BY: KAYLEE Meza Nocturnal polysomnography was performed for re-titration of pressure therapy in this patient with a prior history of obstructive sleep apnea syndrome. For testing a ResMed AirFit F30 full face mask of medium size was used, 4 cm of water pressure were applied to the circuit, and the lights were extinguished. 7 hours and 47 minutes of data were reviewed. There were 370.5 minutes of sleep identified. Sleep latency was mildly prolonged at 32 minutes. REM latency was prolonged at 153 minutes. Sleep architecture was fairly good with two to three REM cycles noted. Overall sleep efficiency was 88.1%. The electrocardiogram showed a sinus rhythm with an average heart rate of 62 beats per minute. EEG showed normal waveforms for wake and sleep. Respiratory events were best palliated with CPAP at a pressure of 8. There was some limb activity noted. Limb movement arousal index was only 3.6. IMPRESSION: Obstructive sleep apnea syndrome (G47.33). RECOMMENDATION: Nightly use of pressure therapy 8 cm of water.
== END ==
LOC: M SLEEP 20:00
PROVIDERS: ATTEND Nurse Practitioner Family
DX: G47.33 Obstructive sleep apnea (adult) (pediatric) (principal)

== ENCOUNTER 2021-10-23 22:00 | Emergency (ER) | payer OTHER ==
[~2021-10-23] VITALS: Ht 167.6 cm; Wt 105.0 kg
[~2021-10-23 22:00] MED LIST changes: +ECOT325T6 PO; -ECOT325T7 PO; +OMEP40CA4 PO; -OMEP40CA97 PO
[2021-10-23 22:48] LABS: HEMATOCRIT 42.4 % (36.0-47.0); HEMOGLOBIN 13.7 g/dl (12.0-15.5); MEAN CORPUSCULAR HEMOGLOBIN 28.1 pg (27.0-33.0); MEAN CORPUSCULAR HGB CONC 32.3 g/dl (32.0-36.5); MEAN CORPUSCULAR VOLUME 87.1 fl (80.0-96.0); PLATELET COUNT, AUTOMATED 243 10^3/uL (150-450); RED BLOOD COUNT 4.87 10^6/uL (4.00-5.40); WHITE BLOOD COUNT 6.9 10^3/uL (4.0-10.0)
[2021-10-23 22:59] LABS: INR 0.92; PARTIAL THROMBOPLASTIN TIME 25.6 SECONDS (25.9-37.0); PROTHROMBIN TIME 12.8 SECONDS (12.7-14.5)
[2021-10-23 23:59] LABS: DIGOXIN LEVEL 0.5 NG/ML (0.5-2.0)
[2021-10-24 00:03] LABS: ACETAMINOPHEN LEVEL < 2.0 UG/ML (10.0-30.0); ALBUMIN 3.6 GM/DL (3.2-5.2); ALT/SGPT 24 U/L (12-78); BILIRUBIN,DIRECT 0.1 MG/DL (0.0-0.2); BILIRUBIN,TOTAL 0.2 MG/DL (0.2-1.0); BLOOD UREA NITROGEN 12 MG/DL (7-18); CALCIUM LEVEL 8.4 MG/DL (8.5-10.1); CARBON DIOXIDE LEVEL 24 MEQ/L (21-32); CHLORIDE LEVEL 112 MEQ/L (98-107); CREATININE FOR GFR 0.77 MG/DL (0.55-1.30); ETHYL ALCOHOL (ETHANOL) 0.242 % (0.000-0.010); GLOMERULAR FILTRATION RATE > 60.0 (>51); GLUCOSE, FASTING 89 MG/DL (70-100); POTASSIUM SERUM 4.1 MEQ/L (3.5-5.1); SALICYLATE LEVEL < 1.7 MG/DL (5.0-30.0); SODIUM LEVEL 145 MEQ/L (136-145); TOTAL PROTEIN 7.3 GM/DL (6.4-8.2)
[2021-10-24] MEDS ORDERED: LORazepam 2 MG TAB PO PRN (00:10)
[2021-10-24 00:42] LABS: HCG, SERUM QUALITATIVE NEGATIVE (NEGATIVE)
[2021-10-24] MEDS: THIAMINE 100 MG TAB PO SCH ×2 (00:56→09:00)
[2021-10-24 01:10] LABS: AMPHETAMINES LEVEL URINE NEGATIVE (NEGATIVE); BARBITURATES URINE NEGATIVE (NEGATIVE); BENZODIAZEPINES URINE NEGATIVE (NEGATIVE); CANNABINOIDS URINE NEGATIVE (NEGATIVE); COCAINE METABOLITE URINE NEGATIVE (NEGATIVE); METHADONE URINE NEGATIVE (NEGATIVE); OPIATES URINE NEGATIVE (NEGATIVE); PHENCYCLIDINE URINE NEGATIVE (NEGATIVE)
[2021-10-24 06:00] VITALS: BP 158/94
[2021-10-24] MEDS ORDERED: FOLIC ACID 1 MG TAB PO SCH (09:00)
[2021-10-24] MEDS ORDERED: MULTIVITAMINS/MINERALS THERAP 1 TAB PO SCH (09:00)
== END 2021-10-24 14:51 | disposition home or self-care (01) ==
LOC: M ED 22:00
DX: F10.120 Alcohol abuse with intoxication, uncomplicated (principal); I48.91 Unspecified atrial fibrillation; G47.33 Obstructive sleep apnea (adult) (pediatric); Z88.8 Allergy status to other drugs, medicaments and biological substances; Z98.84 Bariatric surgery status

== ENCOUNTER → 2021-11-10 | Outpatient (REF) | payer OTHER ==
[2021-11-10 21:47] LABS: APPEARANCE, URINE HAZY (CLEAR); BACTERIA, URINE AUTO 1+ (NEGATIVE); BILIRUBIN, URINE AUTO NEGATIVE (NEGATIVE); BLOOD, URINE BLOOD 2+ (NEGATIVE); CALCIUM OXALATE CRYSTALS MODERATE; COLOR, URINE YELLOW (YELLOW); GLUCOSE, URINE (UA) AUTO NEGATIVE (NEGATIVE); KETONE, URINE AUTO NEGATIVE (NEGATIVE); LEUKOCYTE ESTERASE, URINE AUTO 3+ (NEGATIVE); MUCUS, URINE SMALL (NEGATIVE); NITRITE, URINE AUTO NEGATIVE (NEGATIVE); PROTEIN, URINE AUTO NEGATIVE (NEGATIVE); RBC, URINE AUTO 29 /HPF (0-3); SPECIFIC GRAVITY URINE AUTO 1.023 (1.002-1.035); SQUAMOUS EPITHELIAL CELL UR AU 0 /HPF (0-6); UROBILINOGEN, URINE AUTO 0.2 mg/dL (0.0-2.0); WBC, URINE AUTO 132 /HPF (0-3)
== END ==
LOC: M LAB REF 21:03
PROVIDERS: ATTEND Physician Assistant
DX: N39.0 Urinary tract infection, site not specified (principal)

== ENCOUNTER → 2021-11-14 | Outpatient (REF) | payer OTHER ==
[2021-11-14 19:02] LABS: APPEARANCE, URINE CLEAR (CLEAR); BACTERIA, URINE AUTO NEGATIVE (NEGATIVE); BILIRUBIN, URINE AUTO NEGATIVE (NEGATIVE); BLOOD, URINE BLOOD NEGATIVE (NEGATIVE); COLOR, URINE YELLOW (YELLOW); GLUCOSE, URINE (UA) AUTO NEGATIVE (NEGATIVE); KETONE, URINE AUTO NEGATIVE (NEGATIVE); LEUKOCYTE ESTERASE, URINE AUTO 1+ (NEGATIVE); MUCUS, URINE SMALL (NEGATIVE); NITRITE, URINE AUTO NEGATIVE (NEGATIVE); PROTEIN, URINE AUTO NEGATIVE (NEGATIVE); RBC, URINE AUTO 1 /HPF (0-3); SPECIFIC GRAVITY URINE AUTO 1.016 (1.002-1.035); SQUAMOUS EPITHELIAL CELL UR AU 3 /HPF (0-6); UROBILINOGEN, URINE AUTO 0.2 mg/dL (0.0-2.0); WBC, URINE AUTO 1 /HPF (0-3)
== END ==
LOC: M LAB REF 18:20
PROVIDERS: ATTEND Physician Assistant Medical
DX: R30.0 Dysuria (principal)

== ENCOUNTER → 2021-11-26 | Outpatient (REF) | payer OTHER | LOC: M LAB REF 21:31 | PROVIDERS: ATTEND Physician Assistant | DX: R30.0 Dysuria (principal) ==

== ENCOUNTER → 2021-12-02 | Outpatient (REF) | payer OTHER ==
[2021-12-02 12:35] LABS: BASO % 1.1 % (0.0-1.0); EOS # 0.2 10^3/uL (0.0-0.5); EOS % 5.2 % (0.0-3.0); HEMATOCRIT 45.1 % (36.0-47.0); HEMOGLOBIN 14.3 g/dl (12.0-15.5); LYMPH # 1.1 10^3/uL (1.5-5.0); LYMPH % 31.2 % (24.0-44.0); MEAN CORPUSCULAR HEMOGLOBIN 28.3 pg (27.0-33.0); MEAN CORPUSCULAR HGB CONC 31.7 g/dl (32.0-36.5); MEAN CORPUSCULAR VOLUME 89.3 fl (80.0-96.0); MONO # 0.5 10^3/uL (0.0-0.8); MONO % 12.9 % (2.0-8.0); NEUTROPHILS # 1.8 10^3/uL (1.5-8.5); NEUTROPHILS % 49.3 % (36.0-66.0); PLATELET COUNT, AUTOMATED 224 10^3/uL (150-450); RED BLOOD COUNT 5.05 10^6/uL (4.00-5.40); WHITE BLOOD COUNT 3.7 10^3/uL (4.0-10.0)
[2021-12-02 12:45] LABS: BLOOD UREA NITROGEN 17 MG/DL (7-18); CALCIUM LEVEL 9.2 MG/DL (8.5-10.1); CARBON DIOXIDE LEVEL 27 MEQ/L (21-32); CHLORIDE LEVEL 109 MEQ/L (98-107); CREATININE FOR GFR 0.88 MG/DL (0.55-1.30); GLOMERULAR FILTRATION RATE > 60.0 (>51); GLUCOSE, FASTING 91 MG/DL (70-100); POTASSIUM SERUM 4.2 MEQ/L (3.5-5.1); SODIUM LEVEL 142 MEQ/L (136-145)
== END ==
LOC: M LAB REF 11:54
PROVIDERS: ATTEND Physician Assistant
DX: N10 Acute pyelonephritis (principal)

== ENCOUNTER → 2021-12-22 | Outpatient (CLI) | payer OTHER | LOC: M WUC 14:11 | PROVIDERS: ATTEND Family Medicine | DX: M54.9 Dorsalgia, unspecified (principal); Z98.84 Bariatric surgery status; Z86.16 Personal history of COVID-19 ==

== ENCOUNTER → 2022-03-15 | Outpatient (REF) | payer OTHER | LOC: M LAB REF 21:53 | PROVIDERS: ATTEND Physician Assistant Medical | DX: R05.9 Cough, unspecified (principal); R50.9 Fever, unspecified; H92.09 Otalgia, unspecified ear ==

== ENCOUNTER → 2022-08-10 | Outpatient (REF) | payer OTHER ==
[2022-08-10 22:17] LABS: APPEARANCE, URINE MANUAL CLEAR (CLEAR); COLOR, URINE MANUAL YELLOW (YELLOW)
[2022-08-10 22:18] LABS: BILIRUBIN, URINE MANUAL NEGATIVE (NEGATIVE); BLOOD URINE MANUAL POSITIVE (NEGATIVE); GLUCOSE, URINE (UA) MANUAL NEGATIVE (NEGATIVE); KETONE, URINE MANUAL NEGATIVE (NEGATIVE); LEUKOCYTE ESTERASE, URINE MAN POSITIVE (NEGATIVE); NITRITE, URINE MANUAL TRACE (NEGATIVE); PROTEIN, URINE MANUAL 1+ mg/dL (NEGATIVE); SPECIFIC GRAVITY,URINE MANUAL 1.005 (1.002-1.035); UROBILINOGEN, URINE MANUAL NORMAL (NORMAL)
[2022-08-10 22:35] LABS: BACTERIA, URINE LARGE AMOUNT; SQUAMOUS EPITHELIAL CELL URINE SMALL AMOUNT /hpf (SMALL AMT)
[2022-08-10 22:36] LABS: HYALINE CAST, URINE NONE SEEN /lpf (0-1)
== END ==
LOC: M LAB REF 21:49
PROVIDERS: ATTEND Physician Assistant
DX: N39.0 Urinary tract infection, site not specified (principal)

== ENCOUNTER → 2023-02-23 | Outpatient (REF) | payer OTHER ==
[~2023-02-23] MED LIST changes: +ELIQ5TAB PO
== END ==
LOC: M LAB REF 09:58
PROVIDERS: ATTEND Physician Assistant
DX: R30.0 Dysuria (principal); M54.50 Low back pain, unspecified

== ENCOUNTER → 2023-10-01 | Outpatient (REF) | payer OTHER | LOC: M LAB REF 18:42 | PROVIDERS: ATTEND Physician Assistant Medical | DX: B34.9 Viral infection, unspecified (principal) ==